=== PATIENT | female | born 1935 | race Caucasian/White ===

== ENCOUNTER → 2016-09-04 | Outpatient (CLI) | payer MEDICARE, OTHER ==
--- NOTE | 2016-09-04 14:37 | US ---
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 EXAM MEASUREMENTS: RIGHT: Peak Systolic Velocity (PSV) cm/sec ----- Right CCA: 75.9 ----- Right ICA: 91.7 ----- Right ECA: 108.1 ICA/CCA ratio: 1.2 RIGHT: End Diastole cm/sec ----- Right CCA: 22.1 ----- Right ICA: 27.3 ----- Right ECA: 0.0 LEFT: Peak Systolic Velocity (PSV) cm/sec ----- Left CCA: 50.4 ----- Left ICA: 79.6 ----- Left ECA: 93.6 ICA/CCA ratio: 1.6 LEFT: End Diastole cm/sec ----- Left CCA: 10.9 ----- Left ICA: 16.9 ----- Left ECA: 0.0 VERTEBRALS (direction of flow): Right Vertebral: Antegrade Left Vertebral: Antegrade No significant velocity elevations, mild plaque. IMPRESSION: 1. Mild plaque bilaterally with no significant hemodynamic stenosis.
--- NOTE | 2016-09-05 10:09 | ECHOF ---
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 This was a technically good study. The left ventricular size is normal. There is borderline concentric left ventricular hypertrophy. Overall left ventricular systolic function is normal with, an EF between 55 - 60 %. The right ventricle is normal in size and function. Normal LA size by volume 22+/-6 ml/m2. The right atrium is normal in size. There is mild aortic valve sclerosis. The mitral valve leaflets are mildly thickened. Mild mitral annular calcification present. Mild mitral regurgitation is present. The tricuspid valve appears structurally normal. The pulmonic valve was not well visualized. The aortic root size is normal. Normal inferior vena cava with normal inspiratory collapse consistent with estimated right atrial pressure of 5 mmHg. The pericardium is normal. CONCLUSIONS -------- 1. Sinus rhythm. 2. Mild mitral annular calcification present. 3. Mild mitral regurgitation is present. 4. The tricuspid valve appears structurally normal. 5. The pulmonic valve was not well visualized. 6. The aortic root size is normal. 7. Normal inferior vena cava with normal inspiratory collapse consistent with estimated right atrial pressure of 5 mmHg. 8. The pericardium is normal. 9. This was a technically good study. 10. The left ventricular size is normal. 11. There is borderline concentric left ventricular hypertrophy. 12. The right ventricle is normal in size and function. 13. Normal LA size by volume 22+/-6 ml/m2. 14. The right atrium is normal in size. 15. There is mild aortic valve sclerosis. 16. The mitral valve leaflets are mildly thickened. DATA WAREHOUSE ARCHITECT: Alexandra Dunn RDCS
== END | disposition home or self-care (01) ==
LOC: RADUSMAIN 13:13
PROVIDERS: ATTEND Internal Medicine Geriatric Medicine
DX: I08.0 Rheumatic disorders of both mitral and aortic valves (principal); I51.7 Cardiomegaly
CPT/HCPCS: 93306; 93880

== ENCOUNTER 2018-03-22 19:41 | Emergency (ER) | payer MEDICARE, OTHER ==
--- NOTE | 2018-03-22 20:14 | ED ---
General Adult HPI - General Chief complaint: Extremity Problem,Nontraumatic Stated complaint: Edema Time Seen by Provider: 03/22/18 20:08 Source: patient Mode of arrival: ambulatory Limitations: no limitations - History of Present Illness Initial comments: Romelia is an 82-year-old female who presents to the emergency department today for evaluation of lower extremity edema. Patient reports that she has been in her usual state of health, not experiencing any chest pain or palpitations or shortness of breath. She reports that she was pretty active yesterday walking around for most the day. She reports that it then today she noticed that both of her lower extremities appeared to be somewhat swollen. She states that the swelling persisted today she discussed it with her family who advised her to come to the ER for further evaluation. Patient denies any pain in lower extremities, any change in color or sensation. She reports normal activity level and no additional complaints. The patient is uncertain if she has any history of congestive heart failure, she has been on diuretics in the past but is not currently taking any. - Related Data Home Medications Medication Instructions Recorded Confirmed ALPRAZolam [Xanax] 0.25 mg PO BID PRN 05/18/14 07/08/14 Calcium Carbonate/Vitamin D3 1 each PO DAILY 05/18/14 07/08/14 [Calcium 600-Vit D3 400 Tablet] Cholestyramine (with Sugar) 1 packet PO BID 05/18/14 07/08/14 [Questran Powder] Docusate Sodium [Dulcolax Stool 100 mg PO DAILY PRN 05/18/14 07/08/14 Softener] Fenofibric Acid (Choline) 45 mg PO DAILY 05/18/14 07/08/14 [Fenofibric Acid] Folic Acid 1 mg PO DAILY 05/18/14 07/08/14 Furosemide [Lasix] 20 mg PO DAILY PRN 05/18/14 07/08/14 Magnesium Oxide [Mag-Ox] 250 mg PO DAILY 05/18/14 07/08/14 Metoprolol Succinate [Toprol XL] 50 mg PO BID 05/18/14 07/08/14 Nitroglycerin Sl Tabs [Nitrostat] 0.4 mg SUBLINGUAL Q5M PRN 05/18/14 07/08/14 Omeprazole [PriLOSEC] 20 mg PO AC-BID 05/18/14 07/08/14 Prochlorperazine [Compazine] 5 mg PO DAILY PRN 05/18/14 07/08/14 metFORMIN HCL [Glucophage] 1,000 mg PO BID 05/18/14 07/08/14 traMADol HCl [Ultram] 50 mg PO Q6H PRN 05/18/14 07/08/14 Previous Rx's Medication Instructions Recorded Aspirin 81 mg PO DAILY #1 chewable 07/10/14 Lisinopril-Hctz 10-12.5 mg 1 each PO BID #60 tab 07/10/14 [Zestoretic 10-12.5] Naproxen [Naprosyn] 250 mg PO Q12HR tab 07/10/14 QUEtiapine [SEROquel] 12.5 mg PO HS #30 tab 07/10/14 amLODIPine [Norvasc] 10 mg PO DAILY #30 tablet 07/10/14 Allergies Allergy/AdvReac Type Severity Reaction Status Date / Time clopidogrel bisulfate AdvReac Confusion Verified 03/22/18 19:53 [From Plavix] prednisone AdvReac Confusion Verified 03/22/18 19:53 zolpidem tartrate AdvReac Confusion Verified 03/22/18 19:53 [From Ambien] Review of Systems ROS Statement: Those systems with pertinent positive or pertinent negative responses have been documented in the HPI. ROS Other: All systems not noted in ROS Statement are negative. Past Medical History Past Medical History: Coronary Artery Disease (CAD), Diabetes Mellitus, Hypertension Additional Past Medical History / Comment(s): 07/08/14 Pt presented to [facility] ER with feeling weak in the legs and that she cannot walk anymore. Pt states this leg weakness has been going on for a couple weeks. She fell at home twice last nite. Other HX: NIDDM, arthritis, bowel cancer, DJD, Recent admission 06/16/14-06/17/14 with bilateral radiculopathy from severe lumbosacral spine degenerative joint disease, anterior listhesis grade 1, L4 on L5. Last Myocardial Infarction Date:: 2004 History of Any Multi-Drug Resistant Organisms: None Reported Past Surgical History: Bowel Resection, Hysterectomy, Joint Replacement, Orthopedic Surgery Additional Past Surgical History / Comment(s): 2-3 yrs ago bowel resection- took out 10 inches of colon. cabg 3 vessel 2004, bladder suspensions 4-5 of them, L total knee replacement. Past Anesthesia/Blood Transfusion Reactions: No Reported Reaction Past Psychological History: No Psychological Hx Reported Smoking Status: Former smoker Past Alcohol Use History: None Reported Past Drug Use History: None Reported - Past Family History Father Family Medical History: Diabetes Mellitus, Vascular Disorder Additional Family Medical History / Comment(s): Father had an amputation of his legs Mother Family Medical History: Myocardial Infarction (AR) General Exam - General Exam Comments Initial Comments: Physical Exam GENERAL: Patient is well-developed and well-nourished. Patient is nontoxic and well- hydrated and is in no distress. HENT: Normocephalic, Atraumatic. EYES: PERRL, EOMI PULMONARY: Unlabored respirations. No audible rales rhonchi or wheezing was noted. CARDIOVASCULAR: There is a regular rate and rhythm without any murmurs gallops or rubs. ABDOMEN: Soft and nontender with normal bowel sounds. SKIN: Skin is clear with no lesions or rashes and otherwise unremarkable. : Deferred NEUROLOGIC: Patient is alert and oriented x3. Moving all extremities spontaneously MUSCULOSKELETAL: Normal extremities with adequate strength and full range of motion. 1+ pitting edema in the bilateral lower extremities PSYCHIATRIC: Normal psychiatric evaluation. Limitations: no limitations Limitations: no limitations Course Vital Signs 03/22/18 03/22/18 03/22/18 19:50 22:12 22:40 Temperature 97.7 F 98.2 F Pulse Rate 65 60 Respiratory 20 18 Rate Blood Pressure 206/73 174/76 O2 Sat by Pulse 99 98 Oximetry EKG Findings - EKG Comments: EKG Findings:: EKG obtained at 8:56 PM, rate is 69, rhythm is sinus bradycardia , there is a leftward axis, normal intervals, WV 160, QRS 88, QTC 443. There are no acute ST elevations or depressions no evidence of acute ischemia or infarction. Medical Decision Making - Medical Decision Making The patient was seen and evaluated history is obtained from the patient as well as and son at bedside Physical exam reveals one plus pretibial pitting edema in the bilateral lower extremities Extremities are warm and well perfused Labs were ordered as well as a venous duplex. Labs resulted with elevated d-dimer, at the time that the labs resulted the venous Doppler is being completed. Venous Doppler no evidence of DVT. Labs otherwise unremarkable no evidence of CHF. At this time I suspect that the patient's bilateral lower extremity edema secondary to being physically active, walking on her feet most of the day and sitting with her legs in a bent position. Supportive care was discussed including keeping the feet elevated, sitting in a recliner and elevating her feet with a pillow during the night. All questions pertaining care were answered the best of my ability return parameters were discussed, patient was advised to follow-up with her PCP on Saturday which she will do. Patient was discharged home in stable condition. - Lab Data Result diagrams: 03/22/18 21:23 03/22/18 21:23 Lab Results 03/22/18 03/22/18 03/22/18 Range/Units 21:23 21: 21:23 WBC 3.3 L (3.8-10.6) k/uL RBC 4.16 (3.80-5.40) m/uL Hgb 11.6 (11.4-16.0) gm/dL Hct 35.8 (34.0-46.0) % MCV 86.0 (80.0-100.0) fL MCH 27.8 (25.0-35.0) pg MCHC 32.4 (31.0-37.0) g/dL RDW 14.6 (11.5-15.5) % Plt Count 137 L (150-450) k/uL Neutrophils % 51 % Lymphocytes % 36 % Monocytes % 5 % Eosinophils % 4 % Basophils % 1 % Neutrophils # 1.7 (1.3-7.7) k/uL Lymphocytes # 1.2 (1.0-4.8) k/uL Monocytes # 0.2 (0-1.0) k/uL Eosinophils # 0.1 (0-0.7) k/uL Basophils # 0.0 (0-0.2) k/uL PT (9.0-12.0) sec INR (<1.2) APTT (22.0-30.0) sec D-Dimer (<0.60) mg/L FEU Sodium 142 (137-145) mmol/L Potassium 4.3 (3.5-5.1) mmol/L Chloride 109 H (98-107) mmol/L Carbon Dioxide 23 (22-30) mmol/L Anion Gap 10 mmol/L BUN 20 H (7-17) mg/dL Creatinine 0.94 (0.52-1.04) mg/dL Est GFR (CKD-EPI)AfAm 66 (>60 ml/min/1.73 sqM) Est GFR (CKD-EPI)NonAf 57 (>60 ml/min/1.73 sqM) Glucose 197 H (74-99) mg/dL Calcium 9.6 (8.4-10.2) mg/dL Magnesium 1.9 (1.6-2.3) mg/dL Total Bilirubin 0.4 (0.2-1.3) mg/dL AST 34 (14-36) U/L ALT 32 (9-52) U/L Alkaline Phosphatase 88 (38-126) U/L Total Creatine Kinase 145 H (30-135) U/L CK-MB (CK-2) 3.2 H (0.0-2.4) ng/mL CK-MB (CK-2) Rel Index 2.2 Troponin I <0.012 (0.000-0.034) ng/mL NT-Pro-B Natriuret Pep pg/mL Total Protein 7.2 (6.3-8.2) g/dL Albumin 4.1 (3.5-5.0) g/dL 03/22/18 03/22/18 Range/Units 21:23 21:23 WBC (3.8-10.6) k/uL RBC (3.80-5.40) m/uL Hgb (11.4-16.0) gm/dL Hct (34.0-46.0) % MCV (80.0-100.0) fL MCH (25.0-35.0) pg MCHC (31.0-37.0) g/dL RDW (11.5-15.5) % Plt Count (150-450) k/uL Neutrophils % % Lymphocytes % % Monocytes % % Eosinophils % % Basophils % % Neutrophils # (1.3-7.7) k/uL Lymphocytes # (1.0-4.8) k/uL Monocytes # (0-1.0) k/uL Eosinophils # (0-0.7) k/uL Basophils # (0-0.2) k/uL PT 9.8 (9.0-12.0) sec INR 1.0 (<1.2) APTT 23.2 (22.0-30.0) sec D-Dimer 2.09 H (<0.60) mg/L FEU Sodium (137-145) mmol/L Potassium (3.5-5.1) mmol/L Chloride (98-107) mmol/L Carbon Dioxide (22-30) mmol/L Anion Gap mmol/L BUN (7-17) mg/dL Creatinine (0.52-1.04) mg/dL Est GFR (CKD-EPI)AfAm (>60 ml/min/1.73 sqM) Est GFR (CKD-EPI)NonAf (>60 ml/min/1.73 sqM) Glucose (74-99) mg/dL Calcium (8.4-10.2) mg/dL Magnesium (1.6-2.3) mg/dL Total Bilirubin (0.2-1.3) mg/dL AST (14-36) U/L ALT (9-52) U/L Alkaline Phosphatase (38-126) U/L Total Creatine Kinase (30-135) U/L CK-MB (CK-2) (0.0-2.4) ng/mL CK-MB (CK-2) Rel Index Troponin I (0.000-0.034) ng/mL NT-Pro-B Natriuret Pep 310 pg/mL Total Protein (6.3-8.2) g/dL Albumin (3.5-5.0) g/dL Disposition Clinical Impression: Bilateral lower extremity edema Disposition: HOME SELF-CARE Condition: Good Instructions: Leg Edema (ED) Is patient prescribed a controlled substance at d/c from ED?: No Referrals: Kenya Block MD [Primary Care Provider] - 1-2 days
[2018-03-22 21:41] LABS: Basophils % (A) 1 %; Eosinophils # (A) 0.1 k/uL (0-0.7); Eosinophils % (A) 4 %; HCT 35.8 % (34.0-46.0); HGB 11.6 gm/dL (11.4-16.0); Lymphocytes # (A) 1.2 k/uL (1.0-4.8); Lymphocytes % (A) 36 %; MCH 27.8 pg (25.0-35.0); MCHC 32.4 g/dL (31.0-37.0); Mean Platelet Volume 7.8; Monocytes # (A) 0.2 k/uL (0-1.0); Monocytes % (A) 5 %; Neutrophils # (A) 1.7 k/uL (1.3-7.7); Neutrophils % (A) 51 %; Platelet Count 137 k/uL (150-450); RBC 4.16 m/uL (3.80-5.40); RDW 14.6 % (11.5-15.5); WBC 3.3 k/uL (3.8-10.6)
[2018-03-22 21:56] LABS: Partial Thromboplastin Time 23.2 sec (22.0-30.0); Prothrombin Time 9.8 sec (9.0-12.0)
[2018-03-22 21:58] LABS: Albumin 4.1 g/dL (3.5-5.0); Calcium 9.6 mg/dL (8.4-10.2); Creatine Kinase 145 U/L (30-135); D-Dimer 2.09 mg/L FEU (<0.60); Magnesium 1.9 mg/dL (1.6-2.3); Potassium 4.3 mmol/L (3.5-5.1); Total Bilirubin 0.4 mg/dL (0.2-1.3); Total Protein 7.2 g/dL (6.3-8.2)
--- NOTE | 2018-03-22 22:00 | US ---
EXAMINATION TYPE: US venous doppler duplex LE DATE OF EXAM: 03/22/2018 9:52 PM COMPARISON: NONE CLINICAL HISTORY: edema, left > right. mild pitting edema near socks, no h/o dvt SIDE PERFORMED: Bilateral TECHNIQUE: The lower extremity deep venous system is examined utilizing real time linear array sonog clarke with graded compression, doppler sonography and color-flow sonography. VESSELS IMAGED: External Iliac Vein (EIV) Common Femoral Vein Deep Femoral Vein Greater Saphenous Vein * Femoral Vein Popliteal Vein Small Saphenous Vein * Proximal Calf Veins (* superficial vessels) Right Leg: Appears negative for DVT Left Leg: Appears negative for DVT IMPRESSION: No sonographic evidence of lower extremity DVT. Grayscale, color doppler, spectral doppl er imaging performed of the deep veins of the lower extremities. There is normal flow, compressibili ty, vascular waveforms.
[2018-03-22 22:10] LABS: Creatine Kinase MB 3.2 ng/mL (0.0-2.4); Troponin I <0.012 ng/mL (0.000-0.034)
--- NOTE | 2018-03-22 22:13 | XR ---
EXAMINATION TYPE: XR chest 2V DATE OF EXAM: 03/22/2018 COMPARISON: 07/08/2014 HISTORY: Chest pain TECHNIQUE: Frontal and lateral views of the chest are obtained. FINDINGS: There is no heart failure nor confluent pneumonic infiltrate. Costophrenic angles are raúl r. There are sternal wires. Bony thorax is intact. IMPRESSION: No active cardiopulmonary disease. No change.
[2018-03-22 22:22] VITALS: BP 174/76; PULSE 60; RESP 18
[2018-03-22 22:48] VITALS: TEMP 98.2
== END 2018-03-22 22:40 | disposition home or self-care (01) ==
LOC: EC 19:41
DX: R60.0 Localized edema (principal); I25.10 Atherosclerotic heart disease of native coronary artery without angina pectoris; E11.9 Type 2 diabetes mellitus without complications; I10 Essential (primary) hypertension; M19.90 Unspecified osteoarthritis, unspecified site; Z85.038 Personal history of other malignant neoplasm of large intestine; Z96.652 Presence of left artificial knee joint; Z87.891 Personal history of nicotine dependence; Z79.84 Long term (current) use of oral hypoglycemic drugs; Z79.899 Other long term (current) drug therapy; Z88.8 Allergy status to other drugs, medicaments and biological substances
CPT/HCPCS: 36415; 71046; 80053; 82550; 82553; 83735; 83880; 84484; 85025; 85379; 85610; 85730; 93005; 93970; 99284

== ENCOUNTER → 2018-12-05 | Outpatient (CLI) | payer MEDICARE, OTHER ==
--- NOTE | 2018-12-05 14:37 | P.GSHP ---
History of Present Illness H&P Date: 12/05/18 Chief Complaint: abnormal mammogram and ultrasound of the right breast Romelia is an 82-year-old white female who had a routine screening mammogram performed on [id number]. The findings revealed a 6 mm group of calcifications in the lower outer quadrant of the right breast near the 6 o'clock position. Additionally in inferior right middle depth area was noted of asymmetry. On the left there was a 1.2 cm round mass and adjacent smaller 5 mm mass. Bilateral ultrasounds were then performed. The patient had an ultrasound was noted to have a lesion at 6:00 in the right breast which was 0.5 cm and felt to be somewhat suspicious and warrant ultrasound-guided biopsy additionally the microcalcifications in the right breast was felt to warm biopsy. In the left breast there was a simple appearing cyst and no biopsy was recommended for the left breast. Since the radiographic findings the patient states that she thinks she can feel some nodularity in the right breast. The patient has had fibrocystic breast disease identified by biopsy in the past. She is uncertain as to which breast was biopsied but this was by an open approach approximately 50 years ago. She has no nipple discharge or skin changes. Intermittently with palpation she has some discomfort at the 12 o'clock position of both breasts. She does drink caffeinated beverages throughout the day. She used to smoke but has not smoked for approximately 25 years. She is not exposed to secondhand smoke. She does not eat chocolate on a regular basis. Family History: 1. daughter: metastatic invasive lobular from her left breast, dx. at 63 2. 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 Bland 2. 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 tripple bypass 5. left knee replacement 6. torn meniscus right knee 7. neck surgery (cadaver bone placed) Medical History: 1. diabetes 2. HTN 3. high cholesterol 4. GERD 5. CAD 6. history of carcinoid tumor 7. arthritis Social History: smoke: stopped 20 years ago alcohol: none drugs: none - Constitutional Constitutional: Denies chills, Denies fever - EENT Eyes: denies blurred vision, denies pain Ears: deny: decreased hearing, tinnitus Ears, nose, mouth and throat: Denies headache, Denies sore throat - Breasts Breasts: bilateral: as per HPI - Cardiovascular Comment: CAD Cardiovascular: Reports high blood pressure - Respiratory Respiratory: Denies cough, Denies 7 - Gastrointestinal Comment: carcinoid tumor surgery in past, history of diverticular disease, diverticular disease in remaining colon - Genitourinary (Female) Genitourinary: Denies dysuria, Denies hematuria - Menstruation Menstruation: Reports postmenopausal - Musculoskeletal Comment: arthritis - Integumentary Integumentary: Denies pruritus, Denies rash - Neurological Neurological: Denies numbness, Denies weakness - Psychiatric Psychiatric: Denies anxiety, Denies depression - Endocrine Comment: diabetes 20 years - Hematologic/Lymphatic Comment: none - Allergic/Immunologic Allergic/Immunologic: Reports as per HPI Past Medical History Past Medical History: Coronary Artery Disease (CAD), Diabetes Mellitus, Hypertension Additional Past Medical History / Comment(s): 07/08/14 Pt presented to [facility] ER with feeling weak in the legs and that she cannot walk anymore. Pt states this leg weakness has been going on for a couple weeks. She fell at home twice last nite. Other HX: NIDDM, arthritis, bowel cancer, DJD, Recent admission 06/16/14-06/17/14 with bilateral radiculopathy from severe lumbosacral spine degenerative joint disease, anterior listhesis grade 1, L4 on L5. Last Myocardial Infarction Date:: 2004 History of Any Multi-Drug Resistant Organisms: None Reported Past Surgical History: Bowel Resection, Hysterectomy, Joint Replacement, Orthopedic Surgery Additional Past Surgical History / Comment(s): 2-3 yrs ago bowel resection- took out 10 inches of colon. cabg 3 vessel 2004, bladder suspensions 4-5 of them, L total knee replacement. Past Anesthesia/Blood Transfusion Reactions: No Reported Reaction Past Psychological History: No Psychological Hx Reported Additional Psychological History / Comment(s): Pt and her live in son's home. Son works outside the home. Pt has a walker at home but has not used it yet. Pt is fairly independent until her legs started feeling weak approximately 2 weeks ago. 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 Smoking Status: Former smoker Past Alcohol Use History: None Reported Past Drug Use History: None Reported - Past Family History Father Family Medical History: Diabetes Mellitus, Vascular Disorder Additional Family Medical History / Comment(s): Father had an amputation of his legs Mother Family Medical History: Myocardial Infarction (NH) Medications and Allergies Home Medications Medication Instructions Recorded Confirmed Type Folic Acid 1 mg PO DAILY 05/18/14 12/05/18 History Magnesium Oxide [Mag-Ox] 250 mg PO DAILY 05/18/14 12/05/18 History Metoprolol Succinate [Toprol XL] 50 mg PO BID 05/18/14 12/05/18 History Omeprazole [PriLOSEC] 20 mg PO AC-BID 05/18/14 12/05/18 History amLODIPine [Norvasc] 10 mg PO DAILY #30 tablet 07/10/14 12/05/18 Rx Empagliflozin [Jardiance] 25 mg PO DAILY 12/05/18 12/05/18 History INSULIN LISPRO (HumaLOG) [HumaLOG] 32 units SQ HS 12/05/18 12/05/18 History Insulin Aspart [Novolog] 7 unit SQ AC-TID 12/05/18 12/05/18 History Ramipril 10 mg PO BID 12/05/18 12/05/18 History Allergies Allergy/AdvReac Type Severity Reaction Status Date / Time clopidogrel bisulfate AdvReac Confusion Verified 12/05/18 13:36 [From Plavix] prednisone AdvReac Confusion Verified 12/05/18 13:36 zolpidem tartrate AdvReac Confusion Verified 12/05/18 13:36 [From Ambien] Surgical - Exam Vital Signs Temp Pulse Resp BP Pulse Ox 97.8 F 48 L 18 178/65 98 12/05/18 13:33 12/05/18 13:33 12/05/18 13:33 12/05/18 13:33 12/05/18 13:33 BMI 24.8 - General well developed, well nourished, no distress - Eyes normal ocular movement - ENT no hearing loss, no congestion - Neck no masses, trachea midline - Respiratory normal respiratory effort, clear to auscultation - Cardiovascular Rhythm: regular Heart Sounds: normal: S1, S2 - Abdomen Abdomen: soft, non tender, no guarding, no rigid, no rebound - Integumentary normal turgor - Neurologic no disoriented, no combative - Musculoskeletal normal gait, normal posture - Psychiatric oriented to time, oriented to place, memory intact Breast examination: Right breast: Multi-positional exam dense breast tissue, fibrocystic changes, no dominant mass or nodule of concern Right axilla: No adenopathy of concern Left breast: Fibrocystic breast changes, dense breast tissue, no dominant mass or nodule of concern Left axilla: No adenopathy of concern Assessment and Plan Assessment: Impression: 1. diabetes 2. HTN 3. high cholesterol 4. GERD 5. CAD 6. history of carcinoid tumor 7. arthritis 8. Abnormal mammogram and ultrasound of the right breast 9. Fibrocystic breast changes 10. Family history of breast cancer 11. Prior history of coronary artery bypass grafting Patient is recommended to undergo a right breast stereotactic core biopsy, possible ultrasound-guided core biopsy. We are obtaining the radiographs to derive final recommendation. Risk and benefits of both procedures will be discussed with the patient and her family. The patient's mammogram and ultrasound were reviewed with the radiologist Dr. Mcduffie. After review it is felt that the lesion on the left side represents a simple cyst and does not necessitate any biopsy. The lesion on the right seen radiographically does show some calcifications for which stereotactic core biopsy is recommended. The lesion seen by ultrasound is felt to most likely represent a benign lymph node and in less the stereotactic lesion is atypical we will follow bed area conservatively. Therefore the recommendation is stereotactic core biopsy 6:00 lesion on the right breast. Follow-up right breast mammogram and ultrasound in 6 months depending on pathology results Follow-up left breast mammogram and ultrasound in 6 months Plan: 1. Medical management of medical conditions 2. Stereotactic core biopsy right breast 6:00 lesion 3. Ultrasound evaluation of both breasts in 6 months 4. Bilateral mammogram in 6 months depending on results of circumflex a biopsy CC: Dr. Block
== END ==
DX: Z53.9 Procedure and treatment not carried out, unspecified reason (principal)

== ENCOUNTER → 2018-12-16 | Day surgery (SDC) | payer MEDICARE, OTHER ==
[2018-12-16 07:33] VITALS: RESP 16; BMI 25.4
[2018-12-16 09:46] VITALS: BP 154/61; PULSE 53; TEMP 97.7
--- NOTE | 2018-12-16 10:13 | P.PCN ---
Date of Procedure: 12/16/18 Preoperative Diagnosis: Right breast abnormal calcifications Postoperative Diagnosis: Same Procedure(s) Performed: right breast stereotactic core biopsy Anesthesia: local Surgeon: Neha Talavera Estimated Blood Loss (ml): 0 Pathology: other (Breast tissue) Condition: stable Disposition: same day Indications for Procedure: Microcalcifications right breast Operative Findings: Microcalcifications right breast Description of Procedure: The patient is an 83-year-old white female with a mammogram revealing microcalcifications of concern in the right breast. Risk and benefits of stereotactic core biopsy was discussed with the patient and she wished to proceed. The patient was taken to the stereotactic core biopsy room and positioned on the table. A bandage maker film was obtained. The area of concern was identified. The breast was prepped using Betadine. 20 mL of lidocaine 1% were used to anesthetize the area of concern. Needle was driven to the correct coordinates, prefire films were obtained, the needle was fired and posterior films were obtained. There appeared to be an error in the X axis air and the needle was moved to the right on the X axis. Repeat radiograph revealed that the needle was in the correct location. An additional 10 mL of lidocaine was injected. The needle was in 9-gauge vacuum-assisted core biopsy needle. An attempt to obtain core biopsies was unsuccessful as there did not appear to be any suction on the 9-gauge vacuum-assisted core biopsy needle. Therefore the needle was withdrawn and the area was retargeted. The needle was again inserted through the same incision site. Prefire films were obtained, the needle appeared to be in the correct location and post-fire films were obtained. The needle appeared to be in the correct location. Core biopsies were obtained. Radiograph of the specimen revealed microcalcifications in the specimen. A secure marked top at marker was placed. The patient tolerated the procedure in stable condition. The specimen was sent to pathology. The patient will follow-up with Dr. Elliott.
--- NOTE | 2018-12-16 12:12 | MM ---
EXAMINATION TYPE: MG stereo VAD BX RT DATE OF EXAM: 12/16/2018 COMPARISON: Outside diagnostic bilateral mammogram CLINICAL HISTORY: Indeterminate right breast calcifications for which stereotactic guided biopsy was recommended TECHNIQUE: Stereotactic guided core biopsy of right breast. FINDINGS: The procedure of stereotactic guided core biopsy was explained to the patient. Benefits, alternatives, and risks were discussed. An informed consent was then obtained. Preprocedural timeout was performed. The stasis pathway for biopsy was chosen. The pathway was CC from below approach. I performed the localization, then surgeon, Dr. Earl Barahona performed the remainder of the procedure. A vacuum assisted biopsy gun was used to obtain multiple core samples from a 6 mm group of calcifications in the lower outer quadrant of the right breast at middle depth. The patient tolerated the procedure well. The patient did develop a postprocedural biopsy with hemostasis after compression. This hematoma was evaluated with ultrasound. The patient was kept in the radiology department for short stay after the procedure and then discharged home in stable condition. Targeted calcifications are identified in specimen mammogram. Post biopsy mammogram shows the clip to appear in satisfactory position relative to the targeted area of concern on the preprocedure images. IMPRESSION: SUCCESSFUL STEREOTACTIC GUIDED CORE BIOPSY OF AREA OF CONCERN IN THE RIGHT BREAST, FULL PATHOLOGY RESULTS TO FOLLOW. RECOMMENDATION FOR THE RIGHT BREAST MASS AT 6:00 ON THE RIGHT SEEN ON THE PRIOR OUTSIDE ULTRASOUND WILL BE GIVEN PENDING RESULTS OF STEREOTACTIC BIOPSY. Pathology Results: Benign RIGHT BREAST LESION, STEREOTACTIC NEEDLE CORE BIOPSIES: Fibroadenomatoid change in predominantly fatty breast parenchyma. Abundant coarse intraductal mineralizations are identified. Recommendation Follow up mammogram of the right breast in 6 months. ELID
--- NOTE | 2018-12-16 13:15 | USB ---
Reason for exam: clinical finding. US Breast Limited RT Right limited breast ultrasound including focal area of concern, retroareolar and axilla demonstrates a 3.4 x 1.3 x 3.3cm hypoechoic hematoma post biopsy at 6 o'clock. These results were verbally communicated with the patient and result sheet given to the patient on 12/16/18. ASSESSMENT: Benign, BI-RAD 2 RECOMMENDATION: Routine screening mammogram of both breasts in 1 year. Manage patient on a clinical basis.
== END ==
LOC: RADMAMWWP 06:59
PROVIDERS: ATTEND Surgery
DX: D24.1 Benign neoplasm of right breast (principal); R92.1 Mammographic calcification found on diagnostic imaging of breast; Z88.8 Allergy status to other drugs, medicaments and biological substances
CPT/HCPCS: 88305; 19081; 76642; A4648; J2001

== ENCOUNTER → 2018-12-29 | Outpatient (CLI) | payer MEDICARE, OTHER ==
[2018-12-29 16:30] VITALS: BP 161/72; PULSE 54; RESP 16; TEMP 97.8; BMI 24.4
--- NOTE | 2018-12-29 17:09 | P.PN ---
Subjective Progress Note Date: 12/29/18 Romelia is an 82-year-old white female who had a routine screening mammogram performed on [id number]. The findings revealed a 6 mm group of calcifications in the lower outer quadrant of the right breast near the 6 o'clock position. Additionally in inferior right middle depth area was noted of asymmetry. On the left there was a 1.2 cm round mass and adjacent smaller 5 mm mass. Bilateral ultrasounds were then performed. The patient had an ultrasound was noted to have a lesion at 6:00 in the right breast which was 0.5 cm and felt to be somewhat suspicious and warrant ultrasound-guided biopsy additionally the microcalcifications in the right breast was felt to warm biopsy. In the left breast there was a simple appearing cyst and no biopsy was recommended for the left breast. Since the radiographic findings the patient states that she thinks she can feel some nodularity in the right breast. The patient has had fibrocystic breast disease identified by biopsy in the past. She is uncertain as to which breast was biopsied but this was by an open approach approximately 50 years ago. She has no nipple discharge or skin changes. Intermittently with palpation she has some discomfort at the 12 o'clock position of both breasts. She does drink caffeinated beverages throughout the day. She used to smoke but has not smoked for approximately 25 years. She is not exposed to secondhand smoke. She does not eat chocolate on a regular basis. She underwent stereotactic core biopsy and [id number]. The pathology revealed calcifications and benign fibroadenomatoid change. The patient post procedure complained of some discomfort in the lateral aspect of the right breast. She also has some echymosi. She does not have any fever or chills. The patient's ultrasound was reviewed with radiology and the plan was for repeat study in 6 months. with out a biopsy oat this time. Family History: 1. daughter: metastatic invasive lobular from her left breast, dx. at 63 2. 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 Bland 2. 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 tripple bypass 5. left knee replacement 6. torn meniscus right knee 7. neck surgery (cadaver bone placed) Medical History: 1. diabetes 2. HTN 3. high cholesterol 4. GERD 5. CAD 6. history of carcinoid tumor 7. arthritis Social History: smoke: stopped 20 years ago alcohol: none drugs: none - Constitutional Constitutional: Denies chills, Denies fever - EENT Eyes: denies blurred vision, denies pain Ears: deny: decreased hearing, tinnitus Ears, nose, mouth and throat: Denies headache, Denies sore throat - Breasts Breasts: bilateral: as per HPI - Cardiovascular Comment: CAD Cardiovascular: Reports high blood pressure - Respiratory Respiratory: Denies cough, Denies 7 - Gastrointestinal Comment: carcinoid tumor surgery in past, history of diverticular disease, diverticular disease in remaining colon - Genitourinary (Female) Genitourinary: Denies dysuria, Denies hematuria - Menstruation Menstruation: Reports postmenopausal - Musculoskeletal Comment: arthritis - Integumentary Integumentary: Denies pruritus, Denies rash - Neurological Neurological: Denies numbness, Denies weakness - Psychiatric Psychiatric: Denies anxiety, Denies depression - Endocrine Comment: diabetes 20 years - Hematologic/Lymphatic Comment: none - Allergic/Immunologic Allergic/Immunologic: Reports as per HPI Past Medical History Past Medical History: Coronary Artery Disease (CAD), Diabetes Mellitus, Hypertension Additional Past Medical History / Comment(s): 07/08/14 Pt presented to [facility] ER with feeling weak in the legs and that she cannot walk anymore. Pt states this leg weakness has been going on for a couple weeks. She fell at home twice last nite. Other HX: NIDDM, arthritis, bowel cancer, DJD, Recent admission 06/16/14- 06/17/14 with bilateral radiculopathy from severe lumbosacral spine degenerative joint disease, anterior listhesis grade 1, L4 on L5. Last Myocardial Infarction Date:: 2004 History of Any Multi-Drug Resistant Organisms: None Reported Past Surgical History: Bowel Resection, Hysterectomy, Joint Replacement, Orthopedic Surgery Additional Past Surgical History / Comment(s): 2-3 yrs ago bowel resection- took out 10 inches of colon. cabg 3 vessel 2004, bladder suspensions 4-5 of them, L total knee replacement. Past Anesthesia/Blood Transfusion Reactions: No Reported Reaction Past Psychological History: No Psychological Hx Reported Additional Psychological History / Comment(s): Pt and her live in son's home. Son works outside the home. Pt has a walker at home but has not used it yet. Pt is fairly independent until her legs started feeling weak approximately 2 weeks ago. 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 Smoking Status: Former smoker Past Alcohol Use History: None Reported Past Drug Use History: None Reported Objective - Vital Signs Vital signs: Vital Signs Temp 97.8 F 12/29/18 16:15 Pulse 54 L 12/29/18 16:15 Resp 16 12/29/18 16:15 BP 161/72 12/29/18 16:15 Pulse Ox 95 12/29/18 16:15 Intake & Output 12/28/18 12/29/18 12/29/18 18:59 06:59 18:59 Weight 62.596 kg - Exam BMI 24.4 - Constitutional General appearance: Present: average body habitus - EENT Eyes: Present: EOMI ENT: Present: hearing grossly normal - Neck Neck: Present: normal ROM - Respiratory Respiratory: bilateral: CTA - Cardiovascular Rhythm: regular Heart sounds: normal: S1, S2 - Integumentary Integumentary: Present: normal turgor - Musculoskeletal Musculoskeletal: Present: gait normal - Psychiatric Psychiatric: Present: A&O x's 3, appropriate affect, intact judgment & insight - Additional findings Additional findings: right breast: echymosis at the inferior aspect of the right breast, hematoma present Lateral aspect of the right breast near the axillary area in the area of erythema with punctate rash-like changes Assessment and Plan Assessment: Impression: 1. diabetes 2. HTN 3. high cholesterol 4. GERD 5. CAD 6. history of carcinoid tumor 7. arthritis 8. States a biopsy fibrocystic changes 9. Ultrasound results reviewed with radiologist will repeat ultrasound in 6 months time no biopsy at this time Plan: 1. Repeat right breast mammogram and ultrasound in 6 months 2. Medical management of medical conditions 3. Hematoma resolving 4. Rash lateral aspect of the breast will continue to follow this if it increases or does not resolve will consider dermatology consult 5. history of varicella zoster/may be source of lateral rash Plan: 1. Continue present care of the right breast area of hematoma and ecchymosis 2. Close follow-up of the possible area of very solid zoster the lateral aspect of the right breast 3. Repeat right breast mammogram and ultrasound in 6 months 4. Medical management of medical conditions CC: Dr. Block
== END | disposition home or self-care (01) ==
LOC: WWCWWP 15:46
PROVIDERS: ATTEND Surgery
DX: Z53.9 Procedure and treatment not carried out, unspecified reason (principal)

== ENCOUNTER → 2019-03-30 | Outpatient (CLI) | payer MEDICARE, OTHER ==
--- NOTE | 2019-03-30 10:51 | USB ---
Reason for exam: clinical finding. History: Benign MG stereo VAD BX RT of the right breast, December 16, 2018. Physical Findings: Nurse Summary: 3cm x 2cm firm, tender lump lateral to stereo, punctate scar, questionable hematoma (nurse mj). US Breast RT Right complete breast ultrasound includes all four quadrants, the retroareolar region and axilla. Finding demonstrates a 0.3 x 0.3 x 0.3cm benign calcification at 3 o'clock and a 2.5 x 1.7 x 2.7cm complex cystic mass at 6-7 o'clock most compatible with residual hematoma. Prominent peripheral vascularity. 6 month follow up to ensure complete involution. These results were verbally communicated with the patient and result sheet given to the patient on 03/30/19. ASSESSMENT: Probably benign, BI-RAD 3 RECOMMENDATION: Follow-up diagnostic mammogram of both breasts in 7 months. Ultrasound of the right breast in 7 months. (6 o'clock biopsy site) Back on schedule for October 2019.
== END | disposition home or self-care (01) ==
LOC: RADUSWWP 07:22
PROVIDERS: ATTEND Internal Medicine
DX: N60.21 Fibroadenosis of right breast (principal)

== ENCOUNTER → 2019-10-27 | Outpatient (CLI) | payer SELFPAY ==
[2019-10-27 11:50] LABS: Anisocytosis Slight; Basophils % (A) 1 %; Eosinophils # (A) 0.3 k/uL (0-0.7); Eosinophils % (A) 7 %; HCT 38.6 % (34.0-46.0); HGB 11.8 gm/dL (11.4-16.0); Hypochromasia Marked; Lymphocytes # (A) 1.2 k/uL (1.0-4.8); Lymphocytes % (A) 31 %; MCH 24.3 pg (25.0-35.0); MCHC 30.5 g/dL (31.0-37.0); MCV 79.5 fL (80.0-100.0); Mean Platelet Volume 7.5; Monocytes # (A) 0.2 k/uL (0-1.0); Monocytes % (A) 5 %; Neutrophils # (A) 2.1 k/uL (1.3-7.7); Neutrophils % (A) 53 %; Platelet Count 174 k/uL (150-450); RBC 4.85 m/uL (3.80-5.40); RDW 16.1 % (11.5-15.5); WBC 3.9 k/uL (3.8-10.6)
[2019-10-27 16:37] LABS: African American GFR (CKD) 60.8 (60.0-200.0); Albumin 4.8 g/dL (3.80-4.90); Albumin/Globulin Ratio 1.66 (1.60-3.17); Anion Gap 6.4 mmol/L (4.00-12.00); Calcium 9.7 mg/dL (8.7-10.3); Carbon Dioxide 26.6 mmol/L (21.6-31.8); Chol/HDL Ratio 5.11; Globulin 2.9 g/dL (1.6-3.3); Non-African American GFR(CKD) 52.4 (60.0-200.0); Potassium 5.2 mmol/L (3.5-5.5); Total Bilirubin 0.3 mg/dL (0.2-1.2); Total Protein 7.7 g/dL (6.2-8.2)
[2019-10-27 19:07] LABS: Hemoglobin A1C 7.3 % (4.0-6.0)
== END | disposition home or self-care (01) ==
LOC: LABWHC1 09:44
PROVIDERS: ATTEND Internal Medicine
DX: E78.2 Mixed hyperlipidemia (principal); I10 Essential (primary) hypertension; E11.9 Type 2 diabetes mellitus without complications
CPT/HCPCS: 36415; 80053; 80061; 83036; 84443; 85025

== ENCOUNTER → 2020-03-15 | Outpatient (CLI) | payer MEDICARE ==
--- NOTE | 2020-03-15 17:42 | CT ---
EXAMINATION TYPE: CT abdomen pelvis w con DATE OF EXAM: 03/15/2020 COMPARISON: CT abdomen pelvis 01/25/2013 HISTORY: carcinoid tumor. History of cholecystectomy, small bowel resection, appendectomy, hysterecto my. CT DLP: 382.3 mGycm Automated exposure control for dose reduction was used. TECHNIQUE: Helical acquisition of images was performed from the lung bases through the pelvis. CONTRAST: Performed with Oral Contrast and with IV Contrast, patient injected with 80 mL of Isovue 300. FINDINGS: LUNG BASES: Calcified granuloma of the right lower lobe redemonstrated. No pericardial or pleural eff usion. LIVER: Calcified granuloma of the liver. BILIARY SYSTEM: Status post cholecystectomy. No intrahepatic or extrahepatic biliary ductal dilatatio n. PANCREAS: Atrophic. SPLEEN: Calcified granulomas. Splenule. ADRENALS: Normal. KIDNEYS: Too small to characterize hypodense lesion of the right kidney unchanged versus 2013 compari son. Extra renal pelvis with fullness of the renal collecting systems, right greater than left. BOWEL: No obstruction or thickening. Colonic diverticulosis. No acute diverticulitis. Appendix surgi luci absent. PERITONEUM: Within the mid lower abdomen adjacent to a small bowel loop there is a lobular soft tiss ue density within the mesentery measuring 2.3 x 2.7 x 1.5 cm (3:48, 8:36). Several mesenteric promine nt lymph nodes are redemonstrated, most of which appears similar. The largest lymph nodes node just s uperior and to the right of the soft tissue mass measures 5 mm, and previously measured [address] No pneumoperitoneum. No free fluid. Fat-containing ventral abdominal hernias. LYMPH NODES: No lymphadenopathy, however there are several redemonstrated prominent mesenteric lymph nodes of the mid lower abdomen. PELVIS: Normal urinary bladder. Status post hysterectomy. VASCULATURE: Marked calcified atherosclerotic disease. There is infrarenal abdominal aortic ectasia measuring up to 1.6 x 1.9 cm AP and transverse, as well as abdominal aortic dissection (8:28) startin g at the level of the right renal artery which does not extending beyond the bifurcation. MUSCULOSKELETAL: Degenerative changes of the spine. Grade 1 anterolisthesis of L4 and L5. IMPRESSION: Lobular soft tissue density within the mid lower abdomen not definitively contiguous with the adjacen t small bowel loop, and may represent mesenteric mass measuring 2.3 x 2.7 cm. Differential includes c arcinoid tumor. Several prominent adjacent mesenteric lymph nodes appear similar versus 2013 comparis on.
== END | disposition home or self-care (01) ==
LOC: RADCTMAIN 10:55
PROVIDERS: ATTEND Internal Medicine
DX: D3A.00 Benign carcinoid tumor of unspecified site (principal); M79.89 Other specified soft tissue disorders; Z88.8 Allergy status to other drugs, medicaments and biological substances
CPT/HCPCS: 82565; 84520; 74177; 36415; Q9967

== ENCOUNTER → 2020-03-22 | Outpatient (CLI) | payer MEDICARE ==
--- NOTE | 2020-03-22 18:00 | US ---
EXAMINATION TYPE: US venous doppler duplex LE DATE OF EXAM: 03/22/2020 5:42 PM COMPARISON: US CLINICAL HISTORY: M79.605 Left Leg Pain. Left leg pain x 1 week. No hx of DVT. Patient does not take blood thinners. Hx left knee replacement. SIDE PERFORMED: Left TECHNIQUE: The lower extremity deep venous system is examined utilizing real time linear array sonog clarke with graded compression, doppler sonography and color-flow sonography. VESSELS IMAGED: Common Femoral Vein Deep Femoral Vein Greater Saphenous Vein * Femoral Vein Popliteal Vein Small Saphenous Vein * Proximal Calf Veins (* superficial vessels) Left Leg: No evidence of DVT in veins imaged at this time from prox calf veins to CFV. GSV appears small in groin area but does appear to compress. IMPRESSION: No evidence of deep vein thrombosis in the left leg.
== END | disposition home or self-care (01) ==
LOC: RADUSWWP 17:07
PROVIDERS: ATTEND Internal Medicine
DX: M79.605 Pain in left leg (principal)

== ENCOUNTER 2020-04-02 07:59 | Inpatient (IN) | payer MEDICARE ==
[2020-04-02] MEDS ORDERED: SODIUM CHLORIDE 0.9% 1,000 ML IV STA (08:18)
[2020-04-02] MEDS ORDERED: FAMOTIDINE 20 MG/2 ML VIAL IV STA (08:18)
[2020-04-02] MEDS ORDERED: ONDANSETRON 4 MG/2 ML VIAL IVP STA (08:18)
--- NOTE | 2020-04-02 08:20 | ED ---
General Adult HPI - General Chief complaint: Nausea/Vomiting/Diarrhea Stated complaint: Vomiting Time Seen by Provider: 04/02/20 08:06 Source: patient, RN notes reviewed, old records reviewed Mode of arrival: wheelchair Limitations: no limitations - History of Present Illness Initial comments: Patient is a pleasant 84-year-old female presenting to the emergency department with nausea vomiting. Onset of symptoms was yesterday evening. Patient has vom ited around 3 times. Patient still remains nauseous. Patient has mild discomfort of her upper abdomen. 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 Patient has yet to follow up with oncology regarding this. No constipation or diarrhea. No fever. No chest pain. - Related Data Home Medications Medication Instructions Recorded Confirmed Folic Acid 1 mg PO DAILY 05/18/14 12/29/18 Magnesium Oxide [Mag-Ox] 250 mg PO DAILY 05/18/14 12/29/18 Metoprolol Succinate [Toprol XL] 50 mg PO BID 05/18/14 12/29/18 Omeprazole [PriLOSEC] 20 mg PO AC-BID 05/18/14 12/29/18 Empagliflozin [Jardiance] 25 mg PO DAILY 12/05/18 12/29/18 Insulin Aspart [Novolog] 7 unit SQ AC-TID 12/05/18 12/29/18 Ramipril 10 mg PO BID 12/05/18 12/29/18 Insulin Glargine,Hum.rec.anlog 32 unit SQ HS 12/29/18 12/29/18 [Basaglar Kwikpen U-100] Previous Rx's Medication Instructions Recorded amLODIPine [Norvasc] 10 mg PO DAILY #30 tablet 07/10/14 Allergies Allergy/AdvReac Type Severity Reaction Status Date / Time clopidogrel bisulfate AdvReac Confusion Verified 04/02/20 08:04 [From Plavix] prednisone AdvReac Confusion Verified 04/02/20 08:04 zolpidem tartrate AdvReac Confusion Verified 04/02/20 08:04 [From Ambien] Review of Systems ROS Statement: Those systems with pertinent positive or pertinent negative responses have been documented in the HPI. ROS Other: All systems not noted in ROS Statement are negative. Constitutional: Denies: fever Eyes: Denies: eye pain ENT: Denies: ear pain Respiratory: Denies: cough, dyspnea Cardiovascular: Denies: chest pain Endocrine: Denies: fatigue Gastrointestinal: Reports: as per HPI, nausea, vomiting Genitourinary: Denies: dysuria Musculoskeletal: Denies: back pain Skin: Denies: rash Neurological: Denies: weakness Past Medical History Past Medical History: Coronary Artery Disease (CAD), Diabetes Mellitus, Hypertension Additional Past Medical History / Comment(s): Other HX: NIDDM, arthritis, bowel cancer, DJD, Recent admission 06/16/14-06/17/14 with bilateral radiculopathy from severe lumbosacral spine degenerative joint disease, anterior listhesis grade 1, L4 on L5. Last Myocardial Infarction Date:: 2004 History of Any Multi-Drug Resistant Organisms: None Reported Past Surgical History: Bowel Resection, Hysterectomy, Joint Replacement, Orthopedic Surgery Additional Past Surgical History / Comment(s): 2-3 yrs ago bowel resection- took out 10 inches of colon. cabg 3 vessel 2004, bladder suspensions 4-5 of them, L total knee replacement. Past Anesthesia/Blood Transfusion Reactions: No Reported Reaction Past Psychological History: No Psychological Hx Reported Smoking Status: Former smoker Past Alcohol Use History: None Reported Past Drug Use History: None Reported - Past Family History Father Family Medical History: Diabetes Mellitus, Vascular Disorder Additional Family Medical History / Comment(s): Father had an amputation of his legs Mother Family Medical History: Myocardial Infarction ([place]) General Exam Limitations: no limitations General appearance: alert, in no apparent distress Eye exam: Present: normal appearance Neck exam: Present: normal inspection Respiratory exam: Present: normal lung sounds bilaterally Cardiovascular Exam: Present: regular rate, normal rhythm Expanded Peripheral pulses: 2+: Radial (R), Radial (L), Dorsalis Pedis (R), Dorsalis Pedis (L) GI/Abdominal exam: Present: soft, tenderness (Mild epigastric tenderness). Absent: distended, guarding, rebound, rigid Extremities exam: Present: normal inspection Neurological exam: Present: alert Psychiatric exam: Present: normal affect, normal mood Skin exam: Present: normal color Course Vital Signs 04/02/20 07:59 Temperature 98.8 F Pulse Rate 84 Respiratory 18 Rate Blood Pressure 175/65 O2 Sat by Pulse 98 Oximetry - Reevaluation(s) Reevaluation #1: 04/02/20 09:44 Patient reevaluated. Nausea has improved. Patient still has discomfort. Patient is requesting further medication. Computed tomography scan will be ordered. EKG Findings - EKG Comments: EKG Findings:: Normal sinus rhythm 79. KS 138. QRS 74. QT 382. QTC 438. Normal axis. LVH. No acute ST change Medical Decision Making - Medical Decision Making Patient reevaluated and updated. Case discussed with Dr. Block, who will admit his patient. Surgery will be placed on consult. - Lab Data Result diagrams: 04/02/20 08:38 04/02/20 08:38 Lab Results 04/02/20 04/02/20 04/02/20 Range/Units 08:38 08:38 08:38 WBC 5.0 (3.8-10.6) k/uL RBC 4.81 (3.80-5.40) m/uL Hgb 12.2 (11.4-16.0) gm/dL Hct 36.3 (34.0-46.0) % MCV 75.5 L (80.0-100.0) fL MCH 25.4 (25.0-35.0) pg MCHC 33.6 (31.0-37.0) g/dL RDW 15.9 H (11.5-15.5) % Plt Count 174 (150-450) k/uL MPV 9.2 Neutrophils % 70 % Lymphocytes % 20 % Monocytes % 6 % Eosinophils % 2 % Basophils % 1 % Neutrophils # 3.5 (1.3-7.7) k/uL Lymphocytes # 1.0 (1.0-4.8) k/uL Monocytes # 0.3 (0-1.0) k/uL Eosinophils # 0.1 (0-0.7) k/uL Basophils # 0.0 (0-0.2) k/uL Microcytosis Slight PT 9.6 (9.0-12.0) sec INR 0.9 (<1.2) APTT 20.6 L (22.0-30.0) sec Sodium (137-145) mmol/L Potassium (3.5-5.1) mmol/L Chloride (98-107) mmol/L Carbon Dioxide (22-30) mmol/L Anion Gap mmol/L BUN (7-17) mg/dL Creatinine (0.52-1.04) mg/dL Est GFR (CKD-EPI)AfAm (>60 ml/min/1.73 sqM) Est GFR (CKD-EPI)NonAf (>60 ml/min/1.73 sqM) Glucose (74-99) mg/dL Calcium (8.4-10.2) mg/dL Total Bilirubin (0.2-1.3) mg/dL AST (14-36) U/L ALT (4-34) U/L Alkaline Phosphatase (38-126) U/L Total Protein (6.3-8.2) g/dL Albumin (3.5-5.0) g/dL Amylase (30-110) U/L Lipase (23-300) U/L Urine Color Yellow Urine Appearance Clear (Clear) Urine pH 6.5 (5.0-8.0) Ur Specific Maple 1.019 (1.001-1.035) Urine Protein Trace H (Negative) Urine Glucose (UA) Negative (Negative) Urine Ketones Negative (Negative) Urine Blood Negative (Negative) Urine Nitrite Negative (Negative) Urine Bilirubin Negative (Negative) Urine Urobilinogen <2.0 (<2.0) mg/dL Ur Leukocyte Esterase Moderate H (Negative) Urine RBC 1 (0-5) /hpf Urine WBC 7 H (0-5) /hpf Ur Squamous Epith Cells 3 (0-4) /hpf Urine Bacteria Rare H (None) /hpf Hyaline Casts 41 H (0-2) /lpf Urine Mucus Rare H (None) /hpf 04/02/20 Range/Units 08:38 WBC (3.8-10.6) k/uL RBC (3.80-5.40) m/uL Hgb (11.4-16.0) gm/dL Hct (34.0-46.0) % MCV (80.0-100.0) fL MCH (25.0-35.0) pg MCHC (31.0-37.0) g/dL RDW (11.5-15.5) % Plt Count (150-450) k/uL MPV Neutrophils % % Lymphocytes % % Monocytes % % Eosinophils % % Basophils % % Neutrophils # (1.3-7.7) k/uL Lymphocytes # (1.0-4.8) k/uL Monocytes # (0-1.0) k/uL Eosinophils # (0-0.7) k/uL Basophils # (0-0.2) k/uL Microcytosis PT (9.0-12.0) sec INR (<1.2) APTT (22.0-30.0) sec Sodium 138 (137-145) mmol/L Potassium 4.9 (3.5-5.1) mmol/L Chloride 108 H (98-107) mmol/L Carbon Dioxide 21 L (22-30) mmol/L Anion Gap 9 mmol/L BUN 29 H (7-17) mg/dL Creatinine 1.10 H (0.52-1.04) mg/dL Est GFR (CKD-EPI)AfAm 54 (>60 ml/min/1.73 sqM) Est GFR (CKD-EPI)NonAf 47 (>60 ml/min/1.73 sqM) Glucose 141 H (74-99) mg/dL Calcium 9.8 (8.4-10.2) mg/dL Total Bilirubin 0.6 (0.2-1.3) mg/dL AST 29 (14-36) U/L ALT 14 (4-34) U/L Alkaline Phosphatase 107 (38-126) U/L Total Protein 8.3 H (6.3-8.2) g/dL Albumin 4.6 (3.5-5.0) g/dL Amylase 76 (30-110) U/L Lipase 160 (23-300) U/L Urine Color Urine Appearance (Clear) Urine pH (5.0-8.0) Ur Specific Maple (1.001-1.035) Urine Protein (Negative) Urine Glucose (UA) (Negative) Urine Ketones (Negative) Urine Blood (Negative) Urine Nitrite (Negative) Urine Bilirubin (Negative) Urine Urobilinogen (<2.0) mg/dL Ur Leukocyte Esterase (Negative) Urine RBC (0-5) /hpf Urine WBC (0-5) /hpf Ur Squamous Epith Cells (0-4) /hpf Urine Bacteria (None) /hpf Hyaline Casts (0-2) /lpf Urine Mucus (None) /hpf - Radiology Data Radiology results: report reviewed (Computed tomography scan shows early complete or partial small bowel obstruction), image reviewed (X-ray reveals no acute process.) Disposition Clinical Impression: Small bowel obstruction Disposition: ADMITTED IP TO THIS HOSP Is patient prescribed a controlled substance at d/c from ED?: No Referrals: Kenya Block MD [Primary Care Provider] - 1-2 days Decision Time: 10:53
--- NOTE | 2020-04-02 09:18 | XR ---
EXAMINATION TYPE: XR KUB DATE OF EXAM: 04/02/2020 COMPARISON: 07/28/2013 HISTORY: Pain TECHNIQUE: Single supine KUB image of the abdomen is obtained FINDINGS: Small bowel demonstrates no evidence for dilatation or air fluid levels. Gas and fecal material is seen in non-distended colon. No convincing evidence for pneumoperitoneum. No unusual calcifications. The lung bases are clear. The osseous structures are intact. IMPRESSION: 1. Overall nonobstructive bowel gas pattern.
[2020-04-02 09:22] LABS: Appearance,Urine Clear (Clear); Bacteria,Urine Rare /hpf; Bilirubin,Urine Negative (Negative); Blood,Urine Negative (Negative); Color,Urine Yellow; Glucose,Urine (UA) Negative (Negative); Hyaline Casts,Urine 41 /lpf (0-2); Ketones,Urine Negative (Negative); Leukocyte Esterase,Urine Moderate (Negative); Mucus,Urine Rare /hpf; Nitrite,Urine Negative (Negative); PH, Urine 6.5 (5.0-8.0); Protein,Urine Trace (Negative); RBC,Urine 1 /hpf (0-5); Specific Gravity,Urine 1.019 (1.001-1.035); Squamous Epithelial Cell,Urine 3 /hpf (0-4); Urobilinogen,Urine <2.0 mg/dL (<2.0); WBC,Urine 7 /hpf (0-5)
[2020-04-02 09:25] LABS: Albumin 4.6 g/dL (3.5-5.0); Calcium 9.8 mg/dL (8.4-10.2); Potassium 4.9 mmol/L (3.5-5.1); Total Bilirubin 0.6 mg/dL (0.2-1.3); Total Protein 8.3 g/dL (6.3-8.2)
[2020-04-02 09:32] LABS: INR 0.9 (<1.2); Prothrombin Time 9.6 sec (9.0-12.0)
[2020-04-02 09:36] LABS: Basophils % (A) 1 %; Eosinophils # (A) 0.1 k/uL (0-0.7); Eosinophils % (A) 2 %; HCT 36.3 % (34.0-46.0); HGB 12.2 gm/dL (11.4-16.0); Lymphocytes % (A) 20 %; MCH 25.4 pg (25.0-35.0); MCHC 33.6 g/dL (31.0-37.0); MCV 75.5 fL (80.0-100.0); Mean Platelet Volume 9.2; Microcytosis Slight; Monocytes # (A) 0.3 k/uL (0-1.0); Monocytes % (A) 6 %; Neutrophils # (A) 3.5 k/uL (1.3-7.7); Neutrophils % (A) 70 %; Platelet Count 174 k/uL (150-450); RBC 4.81 m/uL (3.80-5.40); RDW 15.9 % (11.5-15.5)
[2020-04-02] MEDS ORDERED: MORPHINE SULFATE 4 MG/ML SYRINGE IVP STA (09:44)
[2020-04-02 09:46] LABS: Partial Thromboplastin Time 20.6 sec (22.0-30.0)
--- NOTE | 2020-04-02 10:26 | CT ---
EXAMINATION TYPE: CT abdomen pelvis w con DATE OF EXAM: 04/02/2020 COMPARISON: 04/11/2020 HISTORY: Abdominal pain and vomitting CT DLP: 637.1 mGycm CONTRAST: CT scan of the abdomen and pelvis is performed without Oral Contrast and with IV Contrast, patient in jected with 100 ml mL of Isovue 300. FINDINGS: LUNG BASES-: No visible nodule. No infiltrate. LIVER/GB: Cholecystectomy clips are in place. No space occupying hepatic lesion. Biliary tree is o f normal caliber. PANCREAS: No inflammation. No distinct mass. SPLEEN: No splenic enlargement. No lesion seen. ADRENALS: No nodule. No thickening. KIDNEYS/BLADDER: No hydronephrosis. No nephrolithiasis. No distinct renal mass. Urinary bladder g rossly unremarkable. BOWEL: There is dilated small bowel measuring up to 3 cm with low abdominal transition at the site of prior small bowel resection. suspect early complete or partial small bowel obstruction. No evidence for free air or abscess. Scattered intracolonic debris noted. Fat-containing supraumbilical hernia. GENITAL ORGANS: Hysterectomy changes noted. LYMPH NODES: Again noted is a right lower quadrant mesenteric lymph node measuring 2.4 cm. AORTA: No significant abnormality. OSSEOUS STRUCTURES: Severe degenerative changes noted of the lumbar spine. OTHER: No significant additional abnormality is seen. IMPRESSION: 1. There is dilated small bowel measuring up to 3 cm with low abdominal transition at the site of laura or small bowel resection. suspect early complete or partial small bowel obstruction.
[2020-04-02] MEDS ORDERED: NALOXONE 0.4 MG/ML 1 ML VIAL IV PRN (10:54)
[2020-04-02] MEDS ORDERED: ENALAPRILAT 1.25 MG/ML 1 ML VIAL IVP PRN (13:09)
--- NOTE | 2020-04-02 13:09 | P.HPIM ---
History of Present Illness H&P Date: 04/02/20 Chief Complaint: Partial small bowel obstruction. This is an 84-year-old female one of my patient with a previous medical history significant for coronary artery disease status post coronary artery bypass graft for 3 vessels back in 2004, hypertension and hypertensive cardiovascular disease, hyperlipidemia, diabetes mellitus type 2 with diabetic polyneuropathy, history of carcinoid tumor status post appendectomy was under the care of hematology regurgitation stopped following up with him for the past 2 years, patient presented to my office about a few weeks ago with increased abdominal pain associated with increased sweating and flushing laboratory evaluation that showed elevated chromogranin A this was followed by computed tomography scan of the abdomen and pelvis that showed evidence of soft tissue tumor in the mid right abdomen measured 2.72.57 m with enlarged lymph nodes diffuse larger than the CAT scan that was done back in 2012, she was supposed to follow-up with general surgery as well as hematology oncology for further evaluation and treatment however the patient developed to have a significant abdominal pain associated with nausea and vomiting last night and that she was passing some gas without any good bowel movement, she ended up coming to the ER at [facility] today for evaluation . She had had a computed tomography scan of the abdomen and pelvis with contrast that showed a partial small bowel obstruction or complete small bowel obstruction, with the same soft tissue density that she had on March, patient was admitted to the hospital general surgery consultation, NG tube will be placed Review of Systems Constitutional: Reports anorexia, Reports weakness, Reports weight loss Eyes: bilateral blurred vision, bilateral decreased vision, denies bulging eye Ears: deny: decreased hearing Ears, nose, mouth and throat: Denies dysphagia, Denies neck lump, Denies sore throat Cardiovascular: Reports decreased exercise tolerance, Reports dyspnea on exertion, Reports shortness of breath, Denies chest pain, Denies lightheadedness, Denies rapid heart beat, Denies syncope Respiratory: Denies congestion, Denies cough with sputum, Denies home oxygen, Denies sleep apnea, Denies snoring, Denies wheezing Gastrointestinal: Reports abdominal pain, Reports bloating, Reports change in bowel habits, Reports early satiety, Reports excessive gas, Reports loss of appetite, Reports nausea, Reports vomiting, Denies diarrhea, Denies dyspepsia, Denies jaundice, Denies melena Genitourinary: Reports nocturia, Denies dysuria Menstruation: Reports postmenopausal Musculoskeletal: Denies myalgias Musculoskeletal: absent: ankle pain, ankle stiffness, ankle swelling, elbow pain, elbow stiffness, elbow swelling, foot pain, foot stiffness, foot swelling, hand pain, hand stiffness, hand swelling, hip pain, hip stiffness, hip swelling, knee pain, knee stiffness, knee swelling, shoulder pain, shoulder stiffness, shoulder swelling, wrist pain, wrist stiffness, wrist swelling Integumentary: Denies pruritus, Denies rash Neurological: Denies numbness, Denies weakness Psychiatric: Reports anxiety, Reports memory loss, Denies sadness/tearfulness, Denies sleep disturbances, Denies suicidal ideation Endocrine: Denies fatigue, Denies weight change Past Medical History Past Medical History: Coronary Artery Disease (CAD), Diabetes Mellitus, GERD/Reflux, Hyperlipidemia, Hypertension, Osteoarthritis (OA) Additional Past Medical History / Comment(s): arthritis, bowel cancer 1999, DJD, chronic back pain. Last Myocardial Infarction Date:: 2004 History of Any Multi-Drug Resistant Organisms: None Reported Past Surgical History: Bowel Resection, Hysterectomy, Joint Replacement, Orthopedic Surgery Additional Past Surgical History / Comment(s): 2-3 yrs ago bowel resection- took out 10 inches of colon. cabg 3 vessel 2004, bladder suspensions 4-5 of them, L total knee replacement. Past Anesthesia/Blood Transfusion Reactions: No Reported Reaction Smoking Status: Former smoker (Patient used to smoke about half a pack per day she started when she was 17-year-old and quit in 1979.) - Past Family History Father Family Medical History: Diabetes Mellitus (Father at age 72 from diabetes mellitus type 2 and had peripheral vascular disease status post amputations of both legs.), Vascular Disorder Additional Family Medical History / Comment(s): Father had an amputation of his legs Mother Family Medical History: Myocardial Infarction ([place]) (Mother at age of 80 from myocardial infarction.) Brother(s) Family Medical History: Coronary Artery Disease (CAD) (Patient had 6 brothers both of them from [place] or diabetes.) Sister(s) Family Medical History: Diabetes Mellitus (Patient had 6 sisters most of them from diabetes or [place].) Daughter(s) Family Medical History: Renal Disease (Patient has 2 daughters one with chronic kidney disease.) Son(s) Family Medical History: No Reported History (Patient has 3 sons no major medical problems.) Medications and Allergies Home Medications Medication Instructions Recorded Confirmed Type amLODIPine [Norvasc] 10 mg PO DAILY #30 tablet 07/10/14 04/02/20 Rx Empagliflozin [Jardiance] 25 mg PO DAILY 12/05/18 12/29/18 History Insulin Aspart [Novolog] 7 unit SQ AC-TID 12/05/18 12/29/18 History Ramipril 10 mg PO BID 12/05/18 04/02/20 History Insulin Glargine,Hum.rec.anlog 32 unit SQ HS 12/29/18 04/02/20 History [Basaglar Kwikpen U-100] Acetaminophen Tab [Tylenol] 650 mg PO Q4H PRN 04/02/20 04/02/20 History Metoprolol Tartrate [Lopressor] 50 mg PO BID 04/02/20 04/02/20 History Naproxen Sodium [Aleve] 440 mg PO Q12H PRN 04/02/20 04/02/20 History Omeprazole 40 mg PO DAILY 04/02/20 04/02/20 History Vascepa 1gm 2 gm PO BID 04/02/20 04/02/20 History Allergies Allergy/AdvReac Type Severity Reaction Status Date / Time clopidogrel bisulfate AdvReac Confusion Verified 04/02/20 08:04 [From Plavix] prednisone AdvReac Confusion Verified 04/02/20 08:04 zolpidem tartrate AdvReac Confusion Verified 04/02/20 08:04 [From Ambien] Physical Exam Vitals: Vital Signs Temp Pulse Pulse Resp BP BP Pulse Ox 04/02/20 12:28 97.7 F 76 14 140/65 99 04/02/20 07:59 98.8 F 84 18 175/65 98 Intake and Output 04/01/20 04/02/20 04/02/20 22:59 06:59 14:59 Other: Weight 62.596 kg Physical examination: HEENT: Head is atraumatic, normocephalic, pupils were equal round reactive to light and accommodations, extraocular muscle movement were intact, mucous membranes of the mouth are somewhat dry . Neck: Supple, no JVP, decreased carotid upstroke brisk. Chest: Decreased breath sounds at the bases, few rhonchi, no expiratory wheezes, no chest wall tenderness, no intercostal retractions. Heart: First heart sound is depressed, second heart sound is normal, there is systolic ejection murmur 2/6 located at the left sternal border. Abdomen: Soft, moderate tenderness, moderate distention, depressed bowel sounds. Extremities: There is no edema, no calf tenderness, dorsalis pedis +1 bilaterally. Neurologic examination: Patient is awake alert and oriented 3, cranial nerves II-12 grossly intact, muscle power 4 out of 5 in upper and lower extremities bilaterally, deep tendon her flexor depressed, that neuropathic changes both lower extremities. Results CBC & Chem 7: 04/02/20 08:38 04/02/20 08:38 Labs: Abnormal Lab Results - Last 24 Hours (Table) 04/02/20 04/02/20 04/02/20 Range/Units 08:38 08:38 08:38 MCV 75.5 L (80.0-100.0) fL RDW 15.9 H (11.5-15.5) % APTT 20.6 L (22.0-30.0) sec Chloride (98-107) mmol/L Carbon Dioxide (22-30) mmol/L BUN (7-17) mg/dL Creatinine (0.52-1.04) mg/dL Glucose (74-99) mg/dL Total Protein (6.3-8.2) g/dL Urine Protein Trace H (Negative) Ur Leukocyte Esterase Moderate H (Negative) Urine WBC 7 H (0-5) /hpf Urine Bacteria Rare H (None) /hpf Hyaline Casts 41 H (0-2) /lpf Urine Mucus Rare H (None) /hpf 04/02/20 Range/Units 08:38 MCV (80.0-100.0) fL RDW (11.5-15.5) % APTT (22.0-30.0) sec Chloride 108 H (98-107) mmol/L Carbon Dioxide 21 L (22-30) mmol/L BUN 29 H (7-17) mg/dL Creatinine 1.10 H (0.52-1.04) mg/dL Glucose 141 H (74-99) mg/dL Total Protein 8.3 H (6.3-8.2) g/dL Urine Protein (Negative) Ur Leukocyte Esterase (Negative) Urine WBC (0-5) /hpf Urine Bacteria (None) /hpf Hyaline Casts (0-2) /lpf Urine Mucus (None) /hpf Thrombosis Risk Factor Assmnt - DVT/VTE Prophylaxis DVT/VTE Prophylaxis: Pharmacologic Prophylaxis ordered, Mechanical Prophylaxis ordered - Choose All That Apply Any of the Below Risk Factors Present?: Yes Each Factor Represents 1 point: Medical pt on bed rest Each Risk Factor Represents 3 Points: Age 75 years or older Thrombosis Risk Factor Assessment Total Risk Factor Score: 4 Thrombosis Risk Factor Assessment Level: Moderate Risk Assessment and Plan Assessment: Assessment and plan: 1. Partial small bowel obstruction. Insert NG tube, nothing per mouth, IV fluid in the form of normal saline at the 125 mL an hour., We'll start the patient on Zofran 4 mg IV push every 6 hours as needed, Protonix 40 mg IV push every 24 hours, start the patient on morphine 4 mg IV push every 4 hours as needed for pain control, general surgery consultation for further evaluation. 2. Right lower abdomen mesenteric soft tissue mass suggestive of possible carcinoid tumor. Patient chromogranin A as an outpatient is quite elevated, patient lost the follow-up with Dr. Velázquez in the past 2 years with a prior history of neuroendocrine tumor. 3. Hypertension and hypertensive cardiovascular disease. We will start the pa tient on Vasotec 1.25 mg IV push every 6 hours as needed. 4. Hyperlipidemia. We will hold Crestor and Vscepa. 5. Diabetes mellitus type 2. Start the patient on sliding scale insulin. Hold her oral medication. 6. GERD. Continue patient on Protonix 40 mg IV push every 24 hours. 7. Coronary artery disease post CABG . We'll hold the patient metoprolol this point in time, hold Crestor for now, hold the aspirin for now. 8. DVT prophylaxis. Lovenox 40 mg subcutaneously every 24 hours as well as knee-high MARISELA hose. 9. GI prophylaxis. Continue PPI. 10. Admit to inpatient. Estimate a length of stay 2 midnights. 11. Patient is full code.
[2020-04-02] MEDS ORDERED: INSULIN ASPART (NovoLOG) 100 UNIT/ML VIAL SQ SCH ×2 (13:15→17:30)
[2020-04-02] MEDS: MORPHINE SULFATE 4 MG/ML SYRINGE IV PRN ×2 (17:05→21:19)
[2020-04-02] MEDS: SODIUM CHLORIDE 0.9% 1,000 ML IV SCH ×2 (17:05→21:20)
[2020-04-02] MEDS: ONDANSETRON 4 MG/2 ML VIAL IVP PRN (17:08)
[2020-04-02 17:54] LABS: Glucose,Whole Blood 131 mg/dL (75-99)
[2020-04-02] MEDS: INSULIN ASPART (NovoLOG) 100 UNIT/ML VIAL SQ SCH ×2 (18:07→23:40)
[2020-04-02 23:39] LABS: Glucose,Whole Blood 103 mg/dL (75-99)
[2020-04-03] MEDS: SODIUM CHLORIDE 0.9% 1,000 ML IV SCH ×2 (05:52→08:04)
[2020-04-03 06:11] LABS: Glucose,Whole Blood 120 mg/dL (75-99)
[2020-04-03] MEDS: INSULIN ASPART (NovoLOG) 100 UNIT/ML VIAL SQ SCH ×3 (06:11→16:50)
[2020-04-03] MEDS: MORPHINE SULFATE 4 MG/ML SYRINGE IV PRN ×3 (07:59→20:09)
[2020-04-03] MEDS: ENOXAPARIN 40 MG/0.4 ML SYRINGE SQ SCH (08:01)
[2020-04-03] MEDS ORDERED: PANTOPRAZOLE 40 MG/10 ML VIAL IV SCH (09:00)
--- NOTE | 2020-04-03 10:58 | P.PN ---
Subjective Progress Note Date: 04/03/20 his is an 84-year-old female one of my patient with a previous medical history significant for coronary artery disease status post coronary artery bypass graft for 3 vessels back in 2004, hypertension and hypertensive cardiovascular disease, hyperlipidemia, diabetes mellitus type 2 with diabetic polyneuropathy, history of carcinoid tumor status post appendectomy was under the care of hematology regurgitation stopped following up with him for the past 2 years, patient presented to my office about a few weeks ago with increased abdominal pain associated with increased sweating and flushing laboratory evaluation that showed elevated chromogranin A this was followed by computed tomography scan of the abdomen and pelvis that showed evidence of soft tissue tumor in the mid right abdomen measured 2.72.57 m with enlarged lymph nodes diffuse larger than the CAT scan that was done back in 2012, she was supposed to follow-up with general surgery as well as hematology oncology for further ev aluation and treatment however the patient developed to have a significant abdominal pain associated with nausea and vomiting last night and that she was passing some gas without any good bowel movement, she ended up coming to the ER at [facility] today for evaluation . She had had a computed tomography scan of the abdomen and pelvis with contrast that showed a partial small bowel obstruction or complete small bowel obstruction, with the same soft tissue density that she had on March, patient was admitted to the hospital general surgery consultation, NG tube will be placed 04/03: Patient is sitting up in no apparent distress she denies any chest pain or shortness breath, she has not had any nausea or vomiting she refuses NG tube yesterday, we will start clear liquid diet, she did have a bowel movement last night, no active nausea or vomiting at this time, resume her medications, which surgical input. Likely obstruction is resolved, we'll check flat plate of the abdomen. Objective - Vital Signs Vital signs: Vital Signs Temp 97.6 F 04/03/20 07:55 Pulse 67 04/03/20 08:49 Resp 14 04/03/20 07:55 BP 163/69 04/03/20 08:49 Pulse Ox 100 04/03/20 07:55 Intake & Output 04/02/20 04/03/20 04/03/20 18:59 06:59 18:59 Output Total 30 Balance -30 Weight 62.596 kg Output: Emesis 30 Other: Voiding Method Toilet Toilet Toilet # Voids 2 - Exam Review of Systems Constitutional: Reports anorexia, Reports weakness, Reports weight loss Eyes: bilateral blurred vision, bilateral decreased vision, denies bulging eye Ears: deny: decreased hearing Ears, nose, mouth and throat: Denies dysphagia, Denies neck lump, Denies sore throat Cardiovascular: Reports decreased exercise tolerance, Reports dyspnea on exertion, Reports shortness of breath, Denies chest pain, Denies lightheadedness, Denies rapid heart beat, Denies syncope Respiratory: Denies congestion, Denies cough with sputum, Denies home oxygen, Denies sleep apnea, Denies snoring, Denies wheezing Gastrointestinal: Reports abdominal pain, Reports bloating, Reports change in bowel habits, Reports early satiety, Reports excessive gas, Reports loss of appetite, Reports nausea, Reports vomiting, Denies diarrhea, Denies dyspepsia, Denies jaundice, Denies melena Genitourinary: Reports nocturia, Denies dysuria Menstruation: Reports postmenopausal Musculoskeletal: Denies myalgias Musculoskeletal: absent: ankle pain, ankle stiffness, ankle swelling, elbow pain, elbow stiffness, elbow swelling, foot pain, foot stiffness, foot swelling, hand pain, hand stiffness, hand swelling, hip pain, hip stiffness, hip swelling, knee pain, knee stiffness, knee swelling, shoulder pain, shoulder stiffness, shoulder swelling, wrist pain, wrist stiffness, wrist swelling Integumentary: Denies pruritus, Denies rash Neurological: Denies numbness, Denies weakness Psychiatric: Reports anxiety, Reports memory loss, Denies sadness/tearfulness, Denies sleep disturbances, Denies suicidal ideation Endocrine: Denies fatigue, Denies weight change Physical examination: HEENT: Head is atraumatic, normocephalic, pupils were equal round reactive to light and accommodations, extraocular muscle movement were intact, mucous membranes of the mouth are somewhat dry . Neck: Supple, no JVP, decreased carotid upstroke brisk. Chest: Decreased breath sounds at the bases, few rhonchi, no expiratory wheezes, no chest wall tenderness, no intercostal retractions. Heart: First heart sound is depressed, second heart sound is normal, there is systolic ejection murmur 2/6 located at the left sternal border. Abdomen: Soft, moderate tenderness, moderate distention, depressed bowel sounds. Extremities: There is no edema, no calf tenderness, dorsalis pedis +1 bilaterally. Neurologic examination: Patient is awake alert and oriented 3, cranial nerves II-12 grossly intact, muscle power 4 out of 5 in upper and lower extremities bilaterally, deep tendon her flexor depressed, that neuropathic changes both lower extremities. - Labs CBC & Chem 7: 04/02/20 08:38 04/02/20 08:38 Labs: Abnormal Lab Results - Last 24 Hours (Table) 04/02/20 04/02/20 04/03/20 Range/Units 17:52 23:37 06:10 POC Glucose (mg/dL) 131 H 103 H 120 H (75-99) mg/dL Assessment and Plan Assessment: Assessment and plan: 1. Partial small bowel obstruction. I believe it has resolved. Start the patient on clear liquid diet, continue IV fluid resuscitation, restart her medication, with surgical input. 2. Right lower abdomen mesenteric soft tissue mass suggestive of possible c arcinoid tumor. Patient chromogranin A as an outpatient is quite elevated, patient lost the follow-up with Dr. Velázquez in the past 2 years with a prior history of neuroendocrine tumor. 3. Hypertension and hypertensive cardiovascular disease. We will resume metoprolol 50 mg orally twice every day, ramipril 10 mg orally twice every day. 4. Hyperlipidemia. We will continue Crestor 10 mg orally once a day as well as Vascepa 2 gr orally twice every day. 5. Diabetes mellitus type 2. We will resume Lantus 32 units at bedtime along with a sliding scale insulin. 6. GERD. Continue patient on omeprazole 20 mg orally once every day. 7. Coronary artery disease post CABG . Continue metoprolol 50 mg orally twice every day, Crestor 10 mg orally once every day. 8. DVT prophylaxis. Lovenox 40 mg subcutaneously every 24 hours as well as knee-high MARISELA hose. 9. GI prophylaxis. Continue PPI. 10. Increase activity.
[2020-04-03 12:03] LABS: Glucose,Whole Blood 158 mg/dL (75-99)
--- NOTE | 2020-04-03 12:35 | XR ---
EXAMINATION TYPE: XR abdomen complete w decub DATE OF EXAM: 04/03/2020 COMPARISON: 04/02/2020. HISTORY: Shortness of breath and abdominal pain. TECHNIQUE: Supine, upright, and left side down lateral decubitus views of the abdomen are obtained. FINDINGS: There is no evidence for pneumoperitoneum. The bowel gas pattern is unremarkable as there is air throughout nondilated small and large bowel. No sizeable air fluid levels. No mass effects are seen. No unusual calcifications. Cholecystectomy is noted. IMPRESSION: No acute abnormality.
[2020-04-03] MEDS: ONDANSETRON 4 MG/2 ML VIAL IVP PRN (16:47)
[2020-04-03 16:51] LABS: Glucose,Whole Blood 125 mg/dL (75-99)
[2020-04-03] MEDS: METOPROLOL TARTRATE 50 MG TAB PO SCH (20:02)
[2020-04-03] MEDS: lisinopriL 20 MG TAB PO SCH (20:02)
[2020-04-03 20:18] LABS: Glucose,Whole Blood 175 mg/dL (75-99)
[2020-04-03] MEDS: INSULIN DETEMIR (LEVEMIR) 100 UNIT/ML SYR SQ SCH (22:14)
[2020-04-03] MEDS: ACETAMINOPHEN TAB 325 MG TAB PO PRN (22:25)
--- NOTE | 2020-04-03 22:27 | P.GSCN ---
History of Present Illness Consult date: 04/03/20 History of present illness: This is an 84 year old female who has a copmlicated surgical and medical history, she has apparently been worked up in the past for carcinoid tumor however did not follow up. She has a remoted history of small bowel resection in [place] in the past she is unsure why. She was having some increasing abdominal pain in the lower abdomen and N/V at home. This has since improved, she had a BM yesterday. No abdominal pain reported today. She refused NGT Past Medical History Past Medical History: Coronary Artery Disease (CAD), Diabetes Mellitus, GERD/Reflux, Hyperlipidemia, Hypertension, Osteoarthritis (OA) Additional Past Medical History / Comment(s): arthritis, bowel cancer 1999, DJD, chronic back pain. Last Myocardial Infarction Date:: 2004 History of Any Multi-Drug Resistant Organisms: None Reported Past Surgical History: Bowel Resection, Hysterectomy, Joint Replacement, Orthopedic Surgery Additional Past Surgical History / Comment(s): 2-3 yrs ago bowel resection- took out 10 inches of colon. cabg 3 vessel 2004, bladder suspensions 4-5 of them, L total knee replacement. Past Anesthesia/Blood Transfusion Reactions: No Reported Reaction Smoking Status: Former smoker (Patient used to smoke about half a pack per day she started when she was 17-year-old and quit in 1979.) - Past Family History Brother(s) Family Medical History: Coronary Artery Disease (CAD) (Patient had 6 brothers both of them from [place] or diabetes.) Sister(s) Family Medical History: Diabetes Mellitus (Patient had 6 sisters most of them from diabetes or [place].) Daughter(s) Family Medical History: Renal Disease (Patient has 2 daughters one with chronic kidney disease.) Son(s) Family Medical History: No Reported History (Patient has 3 sons no major medical problems.) Father Family Medical History: Diabetes Mellitus (Father at age 72 from diabetes mellitus type 2 and had peripheral vascular disease status post amputations of both legs.), Vascular Disorder Additional Family Medical History / Comment(s): Father had an amputation of his legs Mother Family Medical History: Myocardial Infarction ([place]) (Mother at age of 80 from myocardial infarction.) Medications and Allergies Home Medications Medication Instructions Recorded Confirmed Type amLODIPine [Norvasc] 10 mg PO DAILY #30 tablet 07/10/14 04/02/20 Rx Empagliflozin [Jardiance] 25 mg PO DAILY 12/05/18 12/29/18 History Insulin Aspart [Novolog] 7 unit SQ AC-TID 12/05/18 12/29/18 History Ramipril 10 mg PO BID 12/05/18 04/02/20 History Insulin Glargine,Hum.rec.anlog 32 unit SQ HS 12/29/18 04/02/20 History [Basaglar Kwikpen U-100] Acetaminophen Tab [Tylenol] 650 mg PO Q4H PRN 04/02/20 04/02/20 History Metoprolol Tartrate [Lopressor] 50 mg PO BID 04/02/20 04/02/20 History Naproxen Sodium [Aleve] 440 mg PO Q12H PRN 04/02/20 04/02/20 History Omeprazole 40 mg PO DAILY 04/02/20 04/02/20 History Vascepa 1gm 2 gm PO BID 04/02/20 04/02/20 History Allergies Allergy/AdvReac Type Severity Reaction Status Date / Time clopidogrel bisulfate AdvReac Confusion Verified 04/02/20 08:04 [From Plavix] prednisone AdvReac Confusion Verified 04/02/20 08:04 zolpidem tartrate AdvReac Confusion Verified 04/02/20 08:04 [From Ambien] Surgical - Exam Osteopathic Statement: *. No significant issues noted on an osteopathic structural exam other than those noted in the History and Physical/Consult. Vital Signs Temp Pulse Resp BP Pulse Ox 98.8 F 84 18 175/65 98 04/02/20 07:59 04/02/20 07:59 04/02/20 07:59 04/02/20 07:59 04/02/20 07:59 - General well developed, well nourished, no distress - Respiratory normal expansion, normal respiratory effort - Abdomen Abdomen: soft, non tender - Psychiatric oriented to time, oriented to person, oriented to place Results - Labs 04/02/20 08:38 04/02/20 08:38 Abnormal Lab Results - Last 24 Hours (Table) 04/02/20 04/03/20 04/03/20 Range/Units 23:37 06:10 12:00 POC Glucose (mg/dL) 103 H 120 H 158 H (75-99) mg/dL 04/03/20 04/03/20 Range/Units 16:49 20:17 POC Glucose (mg/dL) 125 H 175 H (75-99) mg/dL Assessment and Plan Assessment: small bowel obstruction, resolved Plan: Patient is feeling better and had BM, clears as tolerated, no plans for acute surgical intervention. She should continue her workup with heme onc, if there is an intra abdominal carcinoid I would recommend surg onc eval as well.
[2020-04-04] MEDS: MORPHINE SULFATE 4 MG/ML SYRINGE IV PRN ×5 (00:34→20:10)
[2020-04-04] MEDS: ONDANSETRON 4 MG/2 ML VIAL IVP PRN ×3 (00:34→17:37)
[2020-04-04 00:43] LABS: Glucose,Whole Blood 137 mg/dL (75-99)
[2020-04-04] MEDS: SODIUM CHLORIDE 0.9% 1,000 ML IV SCH ×2 (00:43→04:16)
[2020-04-04] MEDS: INSULIN ASPART (NovoLOG) 100 UNIT/ML VIAL SQ SCH ×4 (00:46→17:29)
[2020-04-04 07:17] LABS: Glucose,Whole Blood 108 mg/dL (75-99)
[2020-04-04 07:27] LABS: Anisocytosis Slight; Basophils % (A) 1 %; Eosinophils # (A) 0.1 k/uL (0-0.7); Eosinophils % (A) 4 %; HCT 35.4 % (34.0-46.0); HGB 11.4 gm/dL (11.4-16.0); Hypochromasia Slight; Lymphocytes # (A) 1.2 k/uL (1.0-4.8); Lymphocytes % (A) 34 %; MCH 24.9 pg (25.0-35.0); MCV 77.8 fL (80.0-100.0); Mean Platelet Volume 7.7; Microcytosis Slight; Monocytes # (A) 0.2 k/uL (0-1.0); Monocytes % (A) 6 %; Neutrophils # (A) 1.8 k/uL (1.3-7.7); Neutrophils % (A) 53 %; Platelet Count 103 k/uL (150-450); RBC 4.55 m/uL (3.80-5.40); WBC 3.5 k/uL (3.8-10.6)
[2020-04-04] MEDS: ENOXAPARIN 40 MG/0.4 ML SYRINGE SQ SCH (07:46)
[2020-04-04] MEDS: METOPROLOL TARTRATE 50 MG TAB PO SCH ×2 (07:47→20:09)
[2020-04-04] MEDS: lisinopriL 20 MG TAB PO SCH ×2 (07:47→20:21)
[2020-04-04] MEDS: ATORVASTATIN 40 MG TAB PO SCH (07:47)
[2020-04-04] MEDS: Empagliflozin [Jardiance] PO SCH (08:31)
[2020-04-04] MEDS ORDERED: NON FORMULARY DRUG (Omeprazole [Omeprazole] 40 MG Capsule.Dr) PO SCH (09:00)
[2020-04-04 09:37] LABS: African American GFR (CKD) 68.5 (60.0-200.0); Albumin 4.1 g/dL (3.80-4.90); Albumin/Globulin Ratio 1.52 (1.60-3.17); Anion Gap 6.5 mmol/L (4.00-12.00); BUN/Creat Ratio 13.33 Ratio (12.00-20.00); Calcium 8.9 mg/dL (8.7-10.3); Carbon Dioxide 23.5 mmol/L (21.6-31.8); Globulin 2.7 g/dL (1.6-3.3); Non-African American GFR(CKD) 59.1 (60.0-200.0); Potassium 4.2 mmol/L (3.5-5.5); Total Bilirubin 0.3 mg/dL (0.2-1.2); Total Protein 6.8 g/dL (6.2-8.2)
[2020-04-04] MEDS: amLODIPine 10 MG TAB PO SCH (11:14)
[2020-04-04 11:39] LABS: Glucose,Whole Blood 94 mg/dL (75-99)
[2020-04-04] MEDS ORDERED: SCOPOLAMINE 1.5MG/72HR PATCH TRANSDERM SCH (14:30)
--- NOTE | 2020-04-04 15:52 | P.PN ---
Subjective Progress Note Date: 04/04/20 Patient sitting up in bed eating. No complaints. Denies BM Objective - Vital Signs Vital signs: Vital Signs Temp 98.5 F 04/04/20 14:46 Pulse 53 L 04/04/20 14:46 Resp 16 04/04/20 14:46 BP 148/64 04/04/20 14:46 Pulse Ox 98 04/04/20 14:46 Intake & Output 04/03/20 04/04/20 04/04/20 18:59 06:59 18:59 Output Total 2 Balance -2 Output: Urine 1 Stool 1 Other: Voiding Method Toilet Toilet # Voids 2 1 3 # Bowel Movements 1 - Constitutional General appearance: Present: cooperative - Cardiovascular Rhythm: regular - Gastrointestinal Gastrointestinal Comment(s): S/NT/ND - Labs CBC & Chem 7: 04/04/20 06:35 04/04/20 06:35 Labs: Abnormal Lab Results - Last 24 Hours (Table) 04/03/20 04/03/20 04/04/20 Range/Units 16:49 20:17 00:42 WBC (3.8-10.6) k/uL MCV (80.0-100.0) fL MCH (25.0-35.0) pg RDW (11.5-15.5) % Plt Count (150-450) k/uL Est GFR (CKD-EPI)NonAf (60.0-200.0) POC Glucose (mg/dL) 125 H 175 H 137 H (75-99) mg/dL AST (13-35) U/L Albumin/Globulin Ratio (1.60-3.17) g/dL 04/04/20 04/04/20 04/04/20 Range/Units 06:35 06:35 07:15 WBC 3.5 L (3.8-10.6) k/uL MCV 77.8 L (80.0-100.0) fL MCH 24.9 L (25.0-35.0) pg RDW 16.0 H (11.5-15.5) % Plt Count 103 L (150-450) k/uL Est GFR (CKD-EPI)NonAf 59.1 L (60.0-200.0) POC Glucose (mg/dL) 108 H (75-99) mg/dL AST 50 H (13-35) U/L Albumin/Globulin Ratio 1.52 L (1.60-3.17) g/dL Assessment and Plan Assessment: small bowel obstruction, resolving Plan: Diet as tolerated, patient may have suppository or enema as she has some fecal material in rectum on xray
[2020-04-04 16:43] LABS: Glucose,Whole Blood 144 mg/dL (75-99)
[2020-04-04 20:18] LABS: Glucose,Whole Blood 179 mg/dL (75-99)
[2020-04-04] MEDS: INSULIN DETEMIR (LEVEMIR) 100 UNIT/ML SYR SQ SCH (20:50)
[2020-04-05] MEDS: MORPHINE SULFATE 4 MG/ML SYRINGE IV PRN ×2 (00:02→06:00)
[2020-04-05 00:05] LABS: Glucose,Whole Blood 132 mg/dL (75-99)
[2020-04-05] MEDS: INSULIN ASPART (NovoLOG) 100 UNIT/ML VIAL SQ SCH ×5 (01:24→20:13)
[2020-04-05] MEDS: SODIUM CHLORIDE 0.9% 1,000 ML IV SCH ×2 (04:28→15:12)
[2020-04-05 06:11] LABS: Glucose,Whole Blood 83 mg/dL (75-99)
[2020-04-05 07:06] LABS: Glucose,Whole Blood 75 mg/dL (75-99)
[2020-04-05] MEDS: amLODIPine 10 MG TAB PO SCH (07:50)
[2020-04-05] MEDS: lisinopriL 20 MG TAB PO SCH ×2 (07:51→20:13)
[2020-04-05] MEDS: ATORVASTATIN 40 MG TAB PO SCH (07:51)
[2020-04-05] MEDS: ENOXAPARIN 40 MG/0.4 ML SYRINGE SQ SCH (07:52)
[2020-04-05] MEDS: Empagliflozin [Jardiance] PO SCH (07:52)
[2020-04-05] MEDS ORDERED: PROCHLORPERAZINE INJ 10 MG/2 ML VIAL IVP PRN (09:52)
[2020-04-05] MEDS: METOPROLOL TARTRATE 50 MG TAB PO SCH ×2 (09:52→20:14)
[2020-04-05 11:28] LABS: Glucose,Whole Blood 112 mg/dL (75-99)
--- NOTE | 2020-04-05 15:49 | P.PN ---
Subjective Progress Note Date: 04/05/20 his is an 84-year-old female one of my patient with a previous medical history significant for coronary artery disease status post coronary artery bypass graft for 3 vessels back in 2004, hypertension and hypertensive cardiovascular disease, hyperlipidemia, diabetes mellitus type 2 with diabetic polyneuropathy, history of carcinoid tumor status post appendectomy was under the care of hematology regurgitation stopped following up with him for the past 2 years, patient presented to my office about a few weeks ago with increased abdominal pain associated with increased sweating and flushing laboratory evaluation that showed elevated chromogranin A this was followed by computed tomography scan of the abdomen and pelvis that showed evidence of soft tissue tumor in the mid right abdomen measured 2.72.57 m with enlarged lymph nodes diffuse larger than the CAT scan that was done back in 2012, she was supposed to follow-up with general surgery as well as hematology oncology for further ev aluation and treatment however the patient developed to have a significant abdominal pain associated with nausea and vomiting last night and that she was passing some gas without any good bowel movement, she ended up coming to the ER at [facility] today for evaluation . She had had a computed tomography scan of the abdomen and pelvis with contrast that showed a partial small bowel obstruction or complete small bowel obstruction, with the same soft tissue density that she had on March, patient was admitted to the hospital general surgery consultation, NG tube will be placed 04/03: Patient is sitting up in no apparent distress she denies any chest pain or shortness breath, she has not had any nausea or vomiting she refuses NG tube yesterday, we will start clear liquid diet, she did have a bowel movement last night, no active nausea or vomiting at this time, resume her medications, which surgical input. Likely obstruction is resolved, we'll check flat plate of the abdomen. 04/04: Abdominal x-ray from yesterday afternoon revealed no acute abnormality. She has remained without NG tube placement but continues to complain of nausea for which scopolamine patch added. Patient has been seen by Dr. Hurtado with no plans for surgical intervention at this point. She is to be on clear liquid diet as tolerated. She has been afebrile, heart rate 60, blood pressure 118/67, pulse ox 98% on room air. Repeat blood work reveals that he received 3.5, hemoglobin 11.4 and platelet count 103. Electrolytes and renal function normal. AST 50. She is currently tolerating 50-100% of her meals. Diet will be advanced to full liquids. PT and OT consults added. 04/05: Patient continues to have nausea despite Zofran and scopolamine patch. Compazine will be added. She states she has had a normal bowel movement today. She also complains of feeling weak with generalized fatigue. PT and OT have evaluated and recommended home without need for home care. Plan will be to monitor patient overnight, try Compazine for nausea and possible discharge tomorrow. Objective - Vital Signs Vital signs: Vital Signs Temp 98.1 F 04/05/20 11:56 Pulse 71 04/05/20 11:56 Resp 17 04/05/20 11:56 BP 125/70 04/05/20 11:56 Pulse Ox 99 04/05/20 11:56 Intake & Output 04/04/20 04/05/20 04/05/20 18:59 06:59 18:59 Output Total 2 Balance -2 Output: Urine 1 Stool 1 Other: Voiding Method Toilet # Voids 3 1 1 # Bowel Movements 1 1 - Exam Review of Systems Constitutional: Reports anorexia, Reports weakness, Reports weight loss Eyes: bilateral blurred vision, bilateral decreased vision, denies bulging eye Ears: deny: decreased hearing Ears, nose, mouth and throat: Denies dysphagia, Denies neck lump, Denies sore throat Cardiovascular: Reports decreased exercise tolerance, Reports dyspnea on exertion, Reports shortness of breath, Denies chest pain, Denies lightheadedness, Denies rapid heart beat, Denies syncope Respiratory: Denies congestion, Denies cough with sputum, Denies home oxygen, Denies sleep apnea, Denies snoring, Denies wheezing Gastrointestinal: Reports abdominal pain, Reports bloating, Reports change in b owel habits, Reports early satiety, Reports excessive gas, Reports loss of appetite, Reports nausea, denies vomiting, Denies diarrhea, Denies dyspepsia, Denies jaundice, Denies melena Genitourinary: Reports nocturia, Denies dysuria Menstruation: Reports postmenopausal Musculoskeletal: Denies myalgias Musculoskeletal: absent: ankle pain, ankle stiffness, ankle swelling, elbow pain, elbow stiffness, elbow swelling, foot pain, foot stiffness, foot swelling, hand pain, hand stiffness, hand swelling, hip pain, hip stiffness, hip swelling, knee pain, knee stiffness, knee swelling, shoulder pain, shoulder stiffness, shoulder swelling, wrist pain, wrist stiffness, wrist swelling Integumentary: Denies pruritus, Denies rash Neurological: Denies numbness, Denies weakness Psychiatric: Reports anxiety, Reports memory loss, Denies sadness/tearfulness, Denies sleep disturbances, Denies suicidal ideation Endocrine: Denies fatigue, Denies weight change Physical examination: HEENT: Head is atraumatic, normocephalic, pupils were equal round reactive to light and accommodations, extraocular muscle movement were intact, mucous membranes of the mouth are somewhat dry . Neck: Supple, no JVP, decreased carotid upstroke brisk. Chest: Decreased breath sounds at the bases, few rhonchi, no expiratory wheezes, no chest wall tenderness, no intercostal retractions. Heart: First heart sound is depressed, second heart sound is normal, there is systolic ejection murmur 2/6 located at the left sternal border. Abdomen: Soft, moderate tenderness, moderate distention, depressed bowel sounds. Extremities: There is no edema, no calf tenderness, dorsalis pedis +1 bilaterally. Neurologic examination: Patient is awake alert and oriented 3, cranial nerves II-12 grossly intact, muscle power 4 out of 5 in upper and lower extremities bilaterally, deep tendon her flexor depressed, that neuropathic changes both lower extremities. - Labs CBC & Chem 7: 04/04/20 06:35 04/04/20 06:35 Labs: Abnormal Lab Results - Last 24 Hours (Table) 04/04/20 04/04/20 04/05/20 Range/Units 16:42 20:17 00:03 POC Glucose (mg/dL) 144 H 179 H 132 H (75-99) mg/dL 04/05/20 Range/Units 11:26 POC Glucose (mg/dL) 112 H (75-99) mg/dL Assessment and Plan Assessment: Assessment and plan: 1. Partial small bowel obstruction, resolved. Advance diet to consistent carb, continue IV fluid resuscitation, restart her medication, with surgical input. 2. Right lower abdomen mesenteric soft tissue mass suggestive of possible carcinoid tumor. Patient chromogranin A as an outpatient is quite elevated, patient lost the follow-up with Dr. Velázquez in the past 2 years with a prior history of neuroendocrine tumor. 3. Intractable nausea. Continue Zofran, scopolamine patch, and Compazine 10 mg IV every 6 hours as needed. 4. Hypertension and hypertensive cardiovascular disease. We will resume metoprolol 50 mg orally twice every day, ramipril 10 mg orally twice every day. 5. Hyperlipidemia. We will continue Crestor 10 mg orally once a day as well as Vascepa 2 gr orally twice every day. 6. Diabetes mellitus type 2. We will resume Lantus 32 units at bedtime along with a sliding scale insulin. 7. GERD. Continue patient on omeprazole 20 mg orally once every day. 8. Coronary artery disease post CABG . Continue metoprolol 50 mg orally twice every day, Crestor 10 mg orally once every day. 9. 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 10. DVT prophylaxis. Lovenox 40 mg subcutaneously every 24 hours as well as knee-high MARISELA hose. 11. GI prophylaxis. Continue PPI. 12. Increase activity, PT and OT evaluations. Discharge plan: home tomorrow
[2020-04-05 17:11] LABS: Glucose,Whole Blood 114 mg/dL (75-99)
[2020-04-05] MEDS: ACETAMINOPHEN TAB 325 MG TAB PO PRN (18:27)
[2020-04-05 19:52] LABS: Glucose,Whole Blood 140 mg/dL (75-99)
[2020-04-05] MEDS: INSULIN DETEMIR (LEVEMIR) 100 UNIT/ML SYR SQ SCH (20:13)
[2020-04-05 21:36] VITALS: RESP 18
[2020-04-06] MEDS: INSULIN ASPART (NovoLOG) 100 UNIT/ML VIAL SQ SCH ×3 (01:25→13:18)
[2020-04-06] MEDS: ACETAMINOPHEN TAB 325 MG TAB PO PRN (01:59)
[2020-04-06 05:36] LABS: Glucose,Whole Blood 51 mg/dL (75-99)
[2020-04-06 05:52] LABS: Glucose,Whole Blood 40 mg/dL (75-99)
[2020-04-06 06:03] LABS: Glucose,Whole Blood 65 mg/dL (75-99)
[2020-04-06 06:13] LABS: Glucose,Whole Blood 53 mg/dL (75-99)
[2020-04-06 06:17] LABS: Glucose,Whole Blood 82 mg/dL (75-99)
[2020-04-06] MEDS: SODIUM CHLORIDE 0.9% 1,000 ML IV SCH (06:25)
[2020-04-06 06:26] VITALS: BP 173/77; PULSE 66; TEMP 97.7
[2020-04-06 07:35] LABS: Anisocytosis Slight; Basophils % (A) 1 %; Eosinophils # (A) 0.1 k/uL (0-0.7); Eosinophils % (A) 4 %; HCT 34.2 % (34.0-46.0); HGB 10.9 gm/dL (11.4-16.0); Hypochromasia Slight; Lymphocytes # (A) 1.6 k/uL (1.0-4.8); Lymphocytes % (A) 46 %; MCH 24.8 pg (25.0-35.0); MCHC 31.9 g/dL (31.0-37.0); MCV 77.9 fL (80.0-100.0); Mean Platelet Volume 8.8; Microcytosis Slight; Monocytes # (A) 0.2 k/uL (0-1.0); Monocytes % (A) 6 %; Neutrophils # (A) 1.5 k/uL (1.3-7.7); Neutrophils % (A) 42 %; RDW 16.1 % (11.5-15.5); WBC 3.6 k/uL (3.8-10.6)
[2020-04-06 07:38] LABS: Platelet Count 162 k/uL (150-450)
[2020-04-06] MEDS: ENOXAPARIN 40 MG/0.4 ML SYRINGE SQ SCH (08:11)
[2020-04-06] MEDS: amLODIPine 10 MG TAB PO SCH (08:11)
[2020-04-06] MEDS: ATORVASTATIN 40 MG TAB PO SCH (08:11)
[2020-04-06] MEDS: lisinopriL 20 MG TAB PO SCH (08:11)
[2020-04-06] MEDS: METOPROLOL TARTRATE 50 MG TAB PO SCH (08:11)
[2020-04-06] MEDS: Empagliflozin [Jardiance] PO SCH (08:13)
[2020-04-06 08:14] LABS: Glucose,Whole Blood 165 mg/dL (75-99)
--- NOTE | 2020-04-06 10:53 | P.PN ---
Subjective Progress Note Date: 04/04/20 his is an 84-year-old female one of my patient with a previous medical history significant for coronary artery disease status post coronary artery bypass graft for 3 vessels back in 2004, hypertension and hypertensive cardiovascular disease, hyperlipidemia, diabetes mellitus type 2 with diabetic polyneuropathy, history of carcinoid tumor status post appendectomy was under the care of hematology regurgitation stopped following up with him for the past 2 years, patient presented to my office about a few weeks ago with increased abdominal pain associated with increased sweating and flushing laboratory evaluation that showed elevated chromogranin A this was followed by computed tomography scan of the abdomen and pelvis that showed evidence of soft tissue tumor in the mid right abdomen measured 2.72.57 m with enlarged lymph nodes diffuse larger than the CAT scan that was done back in 2012, she was supposed to follow-up with general surgery as well as hematology oncology for further ev aluation and treatment however the patient developed to have a significant abdominal pain associated with nausea and vomiting last night and that she was passing some gas without any good bowel movement, she ended up coming to the ER at [facility] today for evaluation . She had had a computed tomography scan of the abdomen and pelvis with contrast that showed a partial small bowel obstruction or complete small bowel obstruction, with the same soft tissue density that she had on March, patient was admitted to the hospital general surgery consultation, NG tube will be placed 04/03: Patient is sitting up in no apparent distress she denies any chest pain or shortness breath, she has not had any nausea or vomiting she refuses NG tube yesterday, we will start clear liquid diet, she did have a bowel movement last night, no active nausea or vomiting at this time, resume her medications, which surgical input. Likely obstruction is resolved, we'll check flat plate of the abdomen. 04/04: Abdominal x-ray from yesterday afternoon revealed no acute abnormality. She has remained without NG tube placement but continues to complain of nausea for which scopolamine patch added. Patient has been seen by Dr. Hurtado with no plans for surgical intervention at this point. She is to be on clear liquid diet as tolerated. She has been afebrile, heart rate 60, blood pressure 118/67, pulse ox 98% on room air. Repeat blood work reveals that he received 3.5, hemoglobin 11.4 and platelet count 103. Electrolytes and renal function normal. AST 50. She is currently tolerating 50-100% of her meals. Diet will be advanced to full liquids. PT and OT consults added. Objective - Vital Signs Vital signs: Vital Signs Temp 98 F 04/04/20 07:52 Pulse 52 L 04/04/20 11:01 Resp 13 04/04/20 07:52 BP 162/65 04/04/20 11:01 Pulse Ox 98 04/04/20 07:52 Intake & Output 04/03/20 04/04/20 04/04/20 18:59 06:59 18:59 Other: Voiding Method Toilet Toilet # Voids 2 1 - Exam Review of Systems Constitutional: Reports anorexia, Reports weakness, Reports weight loss Eyes: bilateral blurred vision, bilateral decreased vision, denies bulging eye Ears: deny: decreased hearing Ears, nose, mouth and throat: Denies dysphagia, Denies neck lump, Denies sore throat Cardiovascular: Reports decreased exercise tolerance, Reports dyspnea on exertion, Reports shortness of breath, Denies chest pain, Denies lightheadedne ss, Denies rapid heart beat, Denies syncope Respiratory: Denies congestion, Denies cough with sputum, Denies home oxygen, Denies sleep apnea, Denies snoring, Denies wheezing Gastrointestinal: Reports abdominal pain, Reports bloating, Reports change in bowel habits, Reports early satiety, Reports excessive gas, Reports loss of appetite, Reports nausea, Reports vomiting, Denies diarrhea, Denies dyspepsia, Denies jaundice, Denies melena Genitourinary: Reports nocturia, Denies dysuria Menstruation: Reports postmenopausal Musculoskeletal: Denies myalgias Musculoskeletal: absent: ankle pain, ankle stiffness, ankle swelling, elbow pain, elbow stiffness, elbow swelling, foot pain, foot stiffness, foot swelling, hand pain, hand stiffness, hand swelling, hip pain, hip stiffness, hip swelling, knee pain, knee stiffness, knee swelling, shoulder pain, shoulder stiffness, shoulder swelling, wrist pain, wrist stiffness, wrist swelling Integumentary: Denies pruritus, Denies rash Neurological: Denies numbness, Denies weakness Psychiatric: Reports anxiety, Reports memory loss, Denies sadness/tearfulness, Denies sleep disturbances, Denies suicidal ideation Endocrine: Denies fatigue, Denies weight change Physical examination: HEENT: Head is atraumatic, normocephalic, pupils were equal round reactive to light and accommodations, extraocular muscle movement were intact, mucous membranes of the mouth are somewhat dry . Neck: Supple, no JVP, decreased carotid upstroke brisk. Chest: Decreased breath sounds at the bases, few rhonchi, no expiratory wheezes, no chest wall tenderness, no intercostal retractions. Heart: First heart sound is depressed, second heart sound is normal, there is systolic ejection murmur 2/6 located at the left sternal border. Abdomen: Soft, moderate tenderness, moderate distention, depressed bowel sounds. Extremities: There is no edema, no calf tenderness, dorsalis pedis +1 bilaterally. Neurologic examination: Patient is awake alert and oriented 3, cranial nerves II-12 grossly intact, muscle power 4 out of 5 in upper and lower extremities bilaterally, deep tendon her flexor depressed, that neuropathic changes both lower extremities. - Labs CBC & Chem 7: 04/04/20 06:35 04/04/20 06:35 Labs: Abnormal Lab Results - Last 24 Hours (Table) 04/03/20 04/03/20 04/04/20 Range/Units 16:49 20:17 00:42 WBC (3.8-10.6) k/uL MCV (80.0-100.0) fL MCH (25.0-35.0) pg RDW (11.5-15.5) % Plt Count (150-450) k/uL Est GFR (CKD-EPI)NonAf (60.0-200.0) POC Glucose (mg/dL) 125 H 175 H 137 H (75-99) mg/dL AST (13-35) U/L Albumin/Globulin Ratio (1.60-3.17) g/dL 04/04/20 04/04/20 04/04/20 Range/Units 06:35 06:35 07:15 WBC 3.5 L (3.8-10.6) k/uL MCV 77.8 L (80.0-100.0) fL MCH 24.9 L (25.0-35.0) pg RDW 16.0 H (11.5-15.5) % Plt Count 103 L (150-450) k/uL Est GFR (CKD-EPI)NonAf 59.1 L (60.0-200.0) POC Glucose (mg/dL) 108 H (75-99) mg/dL AST 50 H (13-35) U/L Albumin/Globulin Ratio 1.52 L (1.60-3.17) g/dL Assessment and Plan Assessment: Assessment and plan: 1. Partial small bowel obstruction. I believe it has resolved. Advance diet to full diet, continue IV fluid resuscitation, restart her medication, with surgical input. 2. Right lower abdomen mesenteric soft tissue mass suggestive of possible carcinoid tumor. Patient chromogranin A as an outpatient is quite elevated, patient lost the follow-up with Dr. Velázquez in the past 2 years with a prior histo ry of neuroendocrine tumor. 3. Hypertension and hypertensive cardiovascular disease. We will resume metoprolol 50 mg orally twice every day, ramipril 10 mg orally twice every day. 4. Hyperlipidemia. We will continue Crestor 10 mg orally once a day as well as Vascepa 2 gr orally twice every day. 5. Diabetes mellitus type 2. We will resume Lantus 32 units at bedtime along with a sliding scale insulin. 6. GERD. Continue patient on omeprazole 20 mg orally once every day. 7. Coronary artery disease post CABG . Continue metoprolol 50 mg orally twice every day, Crestor 10 mg orally once every day. 8. 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 9. DVT prophylaxis. Lovenox 40 mg subcutaneously every 24 hours as well as knee-high MARISELA hose. 10. GI prophylaxis. Continue PPI. 11. Increase activity, PT and OT evaluations.
[2020-04-06 11:33] LABS: African American GFR (CKD) 60.3 (60.0-200.0); Albumin 4.4 g/dL (3.80-4.90); Albumin/Globulin Ratio 1.63 (1.60-3.17); Anion Gap 11.2 mmol/L (4.00-12.00); Calcium 9.7 mg/dL (8.7-10.3); Carbon Dioxide 22.8 mmol/L (21.6-31.8); Globulin 2.7 g/dL (1.6-3.3); Magnesium 1.7 mg/dL (1.5-2.4); Non-African American GFR(CKD) 52.1 (60.0-200.0); Potassium 3.8 mmol/L (3.5-5.5); Total Bilirubin 0.3 mg/dL (0.2-1.2); Total Protein 7.1 g/dL (6.2-8.2)
[2020-04-06 11:42] LABS: Glucose,Whole Blood 141 mg/dL (75-99)
--- NOTE | 2020-04-06 11:42 | P.DS ---
Providers Date of admission: 04/02/20 10:54 Expected date of discharge: 04/06/20 Attending physician: Kenya Block Consults: 04/02/20 10:54 Consult Physician Urgent Consulting Provider: Kal Hurtado Consult Reason/Comments: sbo Do you want consulting provider notified?: Yes Primary care physician: Kenya Block [place] [facility] Course: This is an 84-year-old female one of my patient with a previous medical history significant for coronary artery disease status post coronary artery bypass graft for 3 vessels back in 2004, hypertension and hypertensive cardiovascular disease, hyperlipidemia, diabetes mellitus type 2 with diabetic polyneuropathy, history of carcinoid tumor status post appendectomy was under the care of hematology regurgitation stopped following up with him for the past 2 years, patient presented to my office about a few weeks ago with increased abdominal pain associated with increased sweating and flushing laboratory evaluation that showed elevated chromogranin A this was followed by computed tomography scan of the abdomen and pelvis that showed evidence of soft tissue tumor in the mid right abdomen measured 2.72.57 m with enlarged lymph nodes diffuse larger than the CAT scan that was done back in 2012, she was supposed to follow-up with general surgery as well as hematology oncology for further evaluation and treatment however the patient developed to have a significant abdominal pain associated with nausea and vomiting last night and that she was passing some gas without any good bowel movement, she ended up coming to the ER at [facility] today for evaluation . She had had a computed tomography scan of the abdomen and pelvis with contrast that showed a partial small bowel obstruction or complete small bowel obstruction, with the same soft tissue density that she had on March, patient was admitted to the hospital general surgery consultation, NG tube will be placed 04/03: Patient is sitting up in no apparent distress she denies any chest pain or shortness breath, she has not had any nausea or vomiting she refuses NG tube yesterday, we will start clear liquid diet, she did have a bowel movement last night, no active nausea or vomiting at this time, resume her medications, which surgical input. Likely obstruction is resolved, we'll check flat plate of the abdomen. 04/04: Abdominal x-ray from yesterday afternoon revealed no acute abnormality. She has remained without NG tube placement but continues to complain of nausea for which scopolamine patch added. Patient has been seen by Dr. Hurtado with no plans for surgical intervention at this point. She is to be on clear liquid diet as tolerated. She has been afebrile, heart rate 60, blood pressure 118/67, pulse ox 98% on room air. Repeat blood work reveals that he received 3.5, hemoglobin 11.4 and platelet count 103. Electrolytes and renal function normal. AST 50. She is currently tolerating 50-100% of her meals. Diet will be advanced to full liquids. PT and OT consults added. 04/05: Patient continues to have nausea despite Zofran and scopolamine patch. Compazine will be added. She states she has had a normal bowel movement today. She also complains of feeling weak with generalized fatigue. PT and OT have evaluated and recommended home without need for home care. Plan will be to monitor patient overnight, try Compazine for nausea and possible discharge tomorrow. 04/06: Patient was eating 25-50% of her meals yesterday, she was able to eat all of her breakfast today. She had a low blood sugar of 40 this morning, patient did not take her night time snack. Patient has not received Compazine and her last dose of Zofran was on April 04. Patient will be discharged home today in stable condition. Discharge diagnoses: 1. Partial small bowel obstruction, resolved. 2. Right lower abdomen mesenteric soft tissue mass suggestive of possible carcinoid tumor. 3. Intractable nausea. 4. Hypertension and hypertensive cardiovascular disease. 5. Hyperlipidemia. 6. Diabetes mellitus type 2. 7. GERD. 8. Coronary artery disease post CABG . 9. 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 Discharge plan: home Impression and plan of care have been directed as dictated by the signing physician. Keisha Lew nurse practitioner acting as scribe for signing physician. Patient Condition at Discharge: Good Plan - Discharge Summary Discharge Rx Participant: Yes New Discharge Prescriptions: New Ondansetron [Zofran] 4 mg PO Q8HR PRN #30 tab PRN Reason: Nausea Continue amLODIPine [Norvasc] 10 mg PO DAILY #30 tablet Ramipril 10 mg PO BID Insulin Glargine,Hum.rec.anlog [Nevaehaglyovany Lynne U-100] 32 unit SQ HS Vascepa 1gm 2 gm PO BID Metoprolol Tartrate [Lopressor] 50 mg PO BID Omeprazole 40 mg PO DAILY Naproxen Sodium [Aleve] 440 mg PO Q12H PRN PRN Reason: Pain Acetaminophen Tab [Tylenol] 650 mg PO Q4H PRN PRN Reason: Pain Empagliflozin [Jardiance] 10 mg PO DAILY INSULIN LISPRO (humaLOG) [humaLOG] 7 units SQ AC-TID Discharge Medication List amLODIPine [Norvasc] 10 mg PO DAILY #30 tablet 07/10/14 [Rx] Ramipril 10 mg PO BID 12/05/18 [History] Insulin Glargine,Hum.rec.anlog [Basaglar Kwikpen U-100] 32 unit SQ HS 12/29/18 [History] Acetaminophen Tab [Tylenol] 650 mg PO Q4H PRN 04/02/20 [History] Metoprolol Tartrate [Lopressor] 50 mg PO BID 04/02/20 [History] Naproxen Sodium [Aleve] 440 mg PO Q12H PRN 04/02/20 [History] Omeprazole 40 mg PO DAILY 04/02/20 [History] Vascepa 1gm 2 gm PO BID 04/02/20 [History] Empagliflozin [Jardiance] 10 mg PO DAILY 04/04/20 [History] INSULIN LISPRO (humaLOG) [humaLOG] 7 units SQ AC-TID 04/04/20 [History] Ondansetron [Zofran] 4 mg PO Q8HR PRN #30 tab 04/05/20 [Rx] Follow up Appointment(s)/Referral(s): Kenya Block MD [Primary Care Provider] - 04/11/20 3:15 pm Patient Instructions/Handouts: Acute Abdominal Pain (DC) Activity/Diet/Wound Care/Special Instructions: Hold metoprolol until seen by Dr. Block activity as tolerated consistent carb diet Discharge Disposition: HOME SELF-CARE
== END 2020-04-06 14:25 | disposition home or self-care (01) | DRG 390 ==
LOC: EC 07:59 → 5NMEDONC 10:54
PROVIDERS: ADMIT Internal Medicine; ATTEND Internal Medicine
PROC: 0D9670Z Drainage of Stomach with Drainage Device, Via Natural or Artificial Opening (ICD-10-PCS; principal; 2020-04-02)
DX: K56.601 Complete intestinal obstruction, unspecified as to cause (principal); D3A.098 Benign carcinoid tumors of other sites; D69.59 Other secondary thrombocytopenia; D72.819 Decreased white blood cell count, unspecified; E11.42 Type 2 diabetes mellitus with diabetic polyneuropathy; E78.5 Hyperlipidemia, unspecified; I11.9 Hypertensive heart disease without heart failure; I25.10 Atherosclerotic heart disease of native coronary artery without angina pectoris; I25.2 Old myocardial infarction; K21.9 Gastro-esophageal reflux disease without esophagitis; Z79.4 Long term (current) use of insulin; Z79.899 Other long term (current) drug therapy; Z82.49 Family history of ischemic heart disease and other diseases of the circulatory system; Z83.3 Family history of diabetes mellitus; Z87.891 Personal history of nicotine dependence; Z90.49 Acquired absence of other specified parts of digestive tract; Z90.710 Acquired absence of both cervix and uterus; Z95.1 Presence of aortocoronary bypass graft; Z96.652 Presence of left artificial knee joint; Z85.038 Personal history of other malignant neoplasm of large intestine; M54.9 Dorsalgia, unspecified; G89.29 Other chronic pain; Z84.1 Family history of disorders of kidney and ureter; M19.90 Unspecified osteoarthritis, unspecified site; Z88.8 Allergy status to other drugs, medicaments and biological substances
CPT/HCPCS: 36415; 74018; 74021; 74177; 80053; 81001; 82150; 83690; 83735; 85025; 85610; 85730; 93005; 96361; 96374; 96375; 99285

== ENCOUNTER → 2020-09-09 | Outpatient (CLI) | payer MEDICARE ==
--- NOTE | 2020-09-14 07:28 | CT ---
EXAMINATION TYPE: CT ChestAbdPelvis w con DATE OF EXAM: 09/09/2020 COMPARISON: Outside PET/CT May 30, 2020. Most recent CT April 02, 2020 and older CTs HISTORY: follow up colon cancer CT DLP: 1015 mGycm. Automated Exposure Control for Dose Reduction was Utilized. CONTRAST: CT scan of the thorax, abdomen and pelvis is performed with IV Contrast, patient injected with 80 mL of Isovue 300. FINDINGS: LUNGS: Mild underlying emphysematous change. No suspicious greater than 5 mm noncalcified nodules or masses. There is 4 mm calcified right lower lobe nodule or granuloma image 40. Mild biapical scarring . No pleural effusion or pneumothorax seen bilaterally MEDIASTINUM: There are no new greater than 1 cm noncalcified hilar or mediastinal lymph nodes. Calcif ied right hilar lymph nodes redemonstrated. No cardiomegaly or pericardial effusion is seen. Post-CA BG changes with mediastinal clips and sternal wires. OTHER: Suspicious 1.0 cm well-defined low dense lesion left breast axial image 20 somewhat more promi nent from outside PET/CT. LIVER/GB: Punctate calcification in the liver. Cholecystectomy clips. PANCREAS: No significant abnormality is seen. SPLEEN: No significant abnormality is seen. ADRENALS: No significant abnormality is seen. KIDNEYS: Symmetric cortical medullary uptake and excretion without hydronephrosis seen bilaterally. BOWEL: Oral contrast reaches level of mid transverse colon. No suspicious small or large bowel dilata tion. Scattered diverticula throughout the colon. Surgical sutures from prior bowel anastomosis anter ior pelvis near image 94 are less well seen on current study. No obvious mass or nodule at this level . Mild wall thickening low-lying cecum into the right pelvis on current study GENITAL ORGANS: Uterus is surgically absent. LYMPH NODES: Persistent lobulated upper pelvic 2.3 x 2.2 cm mesenteric mass axial image 85 correspond s to lesion of concern on recent PET/CT. OSSEOUS STRUCTURES: Moderate to severe disc space narrowing with vacuum disc phenomenon L5-S1 level. Grade 1 anterolisthesis L4 on L5. Partial visualization of fusion plate lower cervical spine. Underly ing S-shaped scoliosis. OTHER: Moderate calcified plaque of the aorta extends into branch vessels. Small ventral wall hernia containing fat and tiny mesenteric vessels with wide neck axial image 73 unchanged from prior studies . IMPRESSION: 1. Stable upper pelvic mesenteric adenopathy or neoplasm. No new or enlarging masses or nodules noted . 2. Suspicious left breast 1.0 cm low dense lesion, advise mammogram and ultrasound diagnostic correla tion.
== END | disposition home or self-care (01) ==
LOC: RADCTMAIN 10:17
PROVIDERS: ATTEND Internal Medicine Hematology & Oncology
DX: C18.9 Malignant neoplasm of colon, unspecified (principal)
CPT/HCPCS: 82565; 84520; 71260; 74177; 36415; Q9967

== ENCOUNTER → 2020-10-20 | Outpatient (CLI) | payer MEDICARE, OTHER ==
--- NOTE | 2020-10-26 11:44 | MM ---
Reason for exam: additional evaluation requested from prior study. History: Benign MG stereo VAD BX RT of the right breast, December 16, 2018. Physical Findings: Nurse did not find any significant physical abnormalities on exam. MG 3D Diag Mammo W/Cad STAS Bilateral CC and MLO view(s) were taken. Prior study comparison: March 30, 2019, right breast US breast RT. December 16, 2018, right breast US breast limited RT. The breast tissue is heterogeneously dense. This may lower the sensitivity of mammography. Finding: There are typically benign vascular, dystrophic, round, linear calcifications in both breasts. Previous mammotome biopsy in the right breast. There is a chronic nodularity in the left breast, stable distortion left upper aspect. There is no new dominant lesion. These results were verbally communicated with the patient and result sheet given to the patient on 10/20/20. ASSESSMENT: Benign, BI-RAD 2 RECOMMENDATION: Routine screening mammogram of both breasts in 1 year.
--- NOTE | 2020-10-26 11:46 | USB ---
Reason for exam: additional evaluation requested from prior study. History: Benign MG stereo VAD BX RT of the right breast, December 16, 2018. US Breast Limited RT Right limited breast ultrasound including focal area of concern, retroareolar and axilla demonstrates a 0.3 x 0.3 x 0.2cm round, solid calcification at 3 o'clock, a 1.6 x 2.6 x 1.8cm irregular, mixed lesion at 7 o'clock prior measurement of 2.5 x 1.7 x 2.7cm and a 0.5 x 0.4 x 0.3cm oval, complex, cystic lesion at 10 o'clock periareolar. These results were verbally communicated with the patient and result sheet given to the patient on 10/20/20. ASSESSMENT: Probably benign, BI-RAD 3 RECOMMENDATION: Ultrasound of the right breast in 6 months.
== END | disposition home or self-care (01) ==
LOC: RADMAMWWP 13:09
PROVIDERS: ATTEND Surgery
DX: R92.1 Mammographic calcification found on diagnostic imaging of breast (principal); R92.2 Inconclusive mammogram
CPT/HCPCS: 77066; 76642; G0279; 77062

== ENCOUNTER → 2020-10-27 | Outpatient (CLI) | payer MEDICARE, OTHER ==
[2020-10-27 11:51] VITALS: BP 190/70; PULSE 57; RESP 16; TEMP 97.7
--- NOTE | 2020-10-27 12:11 | P.PN ---
Subjective Progress Note Date: 10/27/20 Principal diagnosis: abnormal breast ultrasound Romelia is an 84-year-old white female who comes for breast evaluation. She was last seen in 2019. She has a history of multiple bilateral breast biopsies all of which have been benign. Of significance is the fact that a daughter recently of metastatic invasive lobular breast cancer. Romelia underwent a bilateral mammogram on . This was benign BIRADS 2. She additionally underwent a right breast ultrasound which revealed a 1.6 x 1.8 cm irregular area at 7:00 lesion at 7:00 prior measurement 2.5 x 1.7 x 2.7 cm and a complex cystic lesion at 10:00 periareolar. This was felt to be probably benign BIRADS 3 and ultrasound of the right breast area of irregularity at the 7 o'clock position. This was reviewed with Dr. Turcios from radiology who felt that a core biopsy was recommended. Of importance is the fact that on her stereotactic core biopsy of the right breast performed on 12-16-18 she developed a hematoma which was followed conservatively. It appears that the area of concern on today's ultrasound is in proximity to the area of the prior hematoma. The patient states she has felt bilateral nodularity for about one month. She is not complaining of pain unless she pushes on it. The right breast pain is at approximately 2:00, the left breast is no longer tender. She is not complaining of any nipple discharge or skin changes. She was diagnosed with carcinoid tumor in 2013 found incidentally on a abdominal exploration secondary to recurrent bowel obstructions. At this time she has had a recurrence, she had a bowel obstruction in Jun 2020 and was treated conservatively. She is following at [facility]. Family History: 1. daughter: metastatic invasive lobular from her left breast, dx. at 63; July 29, 2020 2. paternal aunt: lung cancer 3. brother: leukemia 4. 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 Bland 2. 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 tripple bypass 5. left knee replacement 6. torn meniscus right knee 7. neck surgery (cadaver bone placed) Medical History: 1. diabetes 2. HTN 3. high cholesterol 4. GERD 5. CAD 6. history of carcinoid tumor 7. arthritis Social History: smoke: stopped 20 years ago alcohol: none drugs: none - Constitutional Constitutional: Denies chills, Denies fever - EENT Eyes: denies blurred vision, denies pain Ears: deny: decreased hearing, tinnitus Ears, nose, mouth and throat: Denies headache, Denies sore throat - Breasts Breasts: bilateral: as per HPI - Cardiovascular Comment: CAD Cardiovascular: Reports high blood pressure - Respiratory Respiratory: Denies cough, - Gastrointestinal Comment: carcinoid tumor surgery in past, history of diverticular disease, diverticular disease in remaining colon - Genitourinary (Female) Genitourinary: Denies dysuria, Denies hematuria - Menstruation Menstruation: Reports postmenopausal - Musculoskeletal Comment: arthritis - Integumentary Integumentary: Denies pruritus, Denies rash - Neurological Neurological: Denies numbness, Denies weakness - Psychiatric Psychiatric: Denies anxiety, Denies depression - Endocrine Comment: diabetes 23 years - Hematologic/Lymphatic Comment: none - Allergic/Immunologic Allergic/Immunologic: Reports as per HPI Objective - Exam BMI 24 - Constitutional General appearance: Present: average body habitus - EENT Eyes: Present: EOMI - Neck Neck: Present: normal ROM - Respiratory Respiratory: bilateral: CTA - Cardiovascular Rhythm: regular Heart sounds: normal: S1, S2 - Integumentary Integumentary: Present: normal turgor - Musculoskeletal Musculoskeletal: Present: gait normal - Psychiatric Psychiatric: Present: A&O x's 3, appropriate affect, intact judgment & insight - Additional findings Additional findings: Breast exam: BRA: 34C Inspection: Grade 3 ptosis bilateral Palpation: Right breast: Multi-positional exam fibrocystic changes, no discrete dominant masses or nodules of concern Right axilla: No adenopathy of concern Left breast: Multi-positional exam fibrocystic changes, no discrete dominant masses or nodules of concern Assessment and Plan Assessment: Impression: 1. Abnormal right breast ultrasound/possible resolving hematoma however the area is irregular and after review with radiology is been recommended an ultrasound core biopsy be performed 2. Daughter recently of metastatic invasive lobular breast cancer 3. Fibrocystic breast changes 4. Hematoma following stereotactic core biopsy of the right breast in 2019 may be the ultrasound abnormality which is seen 5. Diabetes 6. Hypertension 7. High cholesterol 8. GERD 9. Coronary artery disease 10. History of recurrent carcinoid tumor/ she has not had any symptoms of carcinoid syndrome 11. Arthritis Plan: 1. Ultrasound core biopsy right breast 7:00 lesion [address]ance from Dr. Velázquez related to carcinoid tumor Risk and benefits of procedure discussed with the patient and her daughter. They understand and wish to proceed. Cc: Dr. Block
== END ==
LOC: WWCWWP 11:26
PROVIDERS: ATTEND Surgery
DX: R92.8 Other abnormal and inconclusive findings on diagnostic imaging of breast (principal); N60.11 Diffuse cystic mastopathy of right breast; N60.12 Diffuse cystic mastopathy of left breast; N64.89 Other specified disorders of breast; E11.9 Type 2 diabetes mellitus without complications; I10 Essential (primary) hypertension; I25.10 Atherosclerotic heart disease of native coronary artery without angina pectoris; K21.9 Gastro-esophageal reflux disease without esophagitis; E78.00 Pure hypercholesterolemia, unspecified; M19.90 Unspecified osteoarthritis, unspecified site; Z86.012 Personal history of benign carcinoid tumor; Z88.8 Allergy status to other drugs, medicaments and biological substances; Z88.2 Allergy status to sulfonamides; Z87.891 Personal history of nicotine dependence

== ENCOUNTER 2020-11-04 08:19 | Day surgery (SDC) | payer MEDICARE, OTHER ==
[2020-11-02 09:50] VITALS: BMI 24.0
[~2020-11-04 08:19] MED LIST: LIDOCAINE 1% (10MG/ML) FOR IV START INTRADERMA PRN
[2020-11-04 09:06] VITALS: RESP 16
[2020-11-04] MEDS: LACTATED RINGERS 1,000 ML IV SCH ×2 (09:12→09:20)
[2020-11-04 09:13] LABS: Glucose,Whole Blood 101 mg/dL (75-99)
[2020-11-04] MEDS ORDERED: PROPOFOL 10 MG/ML 20 ML VIAL IV ONE (09:29)
[2020-11-04 10:04] LABS: Glucose,Whole Blood 103 mg/dL (75-99)
[2020-11-04 10:24] VITALS: BP 137/61; PULSE 55
--- NOTE | 2020-11-04 10:45 | P.PCN ---
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 She had a CT of the abdomen and pelvis done in March of this year and was noted to have recurrent. She is being followed by Dr. Moulton at [facility] identified. She is scheduled for a surveillance colonoscopy today. PROCEDURE PERFORMED: Colonoscopy. PREOPERATIVE DIAGNOSIS: Follow-up recurrent small bowel carcinoid diagnosed 6 months ago IV sedation per Anesthesia. PROCEDURE: After informed consent was obtained, the patient, was brought into the endoscopy unit. IV sedation was administered by Anesthesia under continuous monitoring. Digital rectal examination was normal. Initially the Olympus CF-160 flexible video colonoscope was then inserted in the rectum, gradually advanced into the cecum with moderate difficulty. Careful examination was performed as the scope was gradually being withdrawn. Ileocecal valve and the appendiceal orifice were visualized and appeared normal. Prep was fair.. Mucosa of the cecum, ascending colon, transverse colon, descending colon, sigmoid colon, and rectum appeared normal. Diffuse scattered diverticulosis seen. Retroflexion was performed in the rectum and no lesions were seen. The patient tolerated the procedure well. IMPRESSION: Normal-appearing colon from rectum to cecum with no evidence of colitis or colorectal neoplasia . Diffuse diverticulosisthroughout the entire colon. RECOMMENDATIONS: Findings of this examination were discussed with the patient as well as his family. She was advised to be a high-fiber diet and take fiber supplements a regular basis..
== END 2020-11-04 10:45 | disposition home or self-care (01) ==
LOC: ORWHC2ENDO 08:19
PROVIDERS: ATTEND Internal Medicine Gastroenterology
DX: Z12.11 Encounter for screening for malignant neoplasm of colon (principal); G47.33 Obstructive sleep apnea (adult) (pediatric); E11.9 Type 2 diabetes mellitus without complications; I50.9 Heart failure, unspecified; I25.10 Atherosclerotic heart disease of native coronary artery without angina pectoris; Z88.8 Allergy status to other drugs, medicaments and biological substances; Z79.899 Other long term (current) drug therapy
CPT/HCPCS: 45378; J2704

== ENCOUNTER → 2020-11-16 | Day surgery (SDC) | payer MEDICARE, OTHER ==
[2020-11-16 12:15] VITALS: RESP 16
[2020-11-16 13:40] VITALS: BP 157/53; PULSE 50; TEMP 98.1
--- NOTE | 2020-11-16 14:11 | USB ---
EXAMINATION TYPE: US biopsy breast add' l VAD RT, US biopsy breast VAD RT, MG diagnostic mammo RT wo CAD DATE OF EXAM: 11/16/2020 CLINICAL HISTORY: R92.8, ABN MAMM. TECHNIQUE: Ultrasound guided core biopsy of RIGHT breast. COMPARISON: NONE FINDINGS: The procedure of ultrasound guided core biopsy was explained to the patient. Benefits, alt ernatives, and risks were discussed. An informed consent was then obtained. The patient was placed in supine positioning for imaging and for the procedure. The overlying skin w as prepped and draped in usual sterile fashion. Lidocaine buffered with bicarbonate was used as anes thetic into the skin and subcutaneous tissue up to area of concern in the right breast. A claudia was m solange with surgical scalpel. There are linear spiculated extensions from the main mass which were first biopsied at 7:00. This is LABELED SITE A. Under ultrasound guidance, a 12-gauge vacuum assisted b iopsy gun device was used to obtain 4 core samples. Following this, a biopsy clip was place in lesio n. Through this same site, the main larger lesion was biopsied. Lidocaine buffered with bicarbonate was used as anesthetic into the skin and subcutaneous tissue up to area of concern in the right 7:[address] Under ultrasound guidance, a 12-gauge vacuum assisted biopsy gun device was used to obtain 3 cor e samples. Following this, a biopsy clip was placed in lesion. Post diagnostic mammogram shows 2 biopsy clips in appropriate position. The patient tolerated the procedure well without any immediate complication. The patient was kept in the radiology department for short stay after the procedure and then discharged home in stable condi tion. IMPRESSION: Successful, uncomplicated ultrasound guided core biopsy of areas of concern in the right breast at 7:00. Full pathology results to follow.
== END ==
LOC: RADUSWWP 12:00
PROVIDERS: ATTEND Surgery
DX: N64.1 Fat necrosis of breast (principal); L90.5 Scar conditions and fibrosis of skin
CPT/HCPCS: 88305; 77065; 19083; 19084; A4648; J2001

== ENCOUNTER → 2020-11-24 | Outpatient (CLI) | payer MEDICARE, OTHER ==
[2020-11-24 16:03] VITALS: BP 163/63; PULSE 54; RESP 12; TEMP 97.9
--- NOTE | 2020-11-24 16:54 | P.PN ---
Subjective Progress Note Date: 11/24/20 Principal diagnosis: Patient is an 84-year-old white female status post right breast ultrasound core biopsy of 2 sites at 7:00 on 77. Pathology was benign and concordant at both of these sites. Radiologist however, was noted to have some concerns about a 10 o'clock position in the right breast. The patient tolerated the procedure without difficulty. 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 Objective - Vital Signs Vital signs: Vital Signs Temp 97.9 F 11/24/20 15:58 Pulse 54 L 11/24/20 15:58 Resp 12 11/24/20 15:58 BP 163/63 11/24/20 15:58 Pulse Ox 96 11/24/20 15:58 Intake & Output 11/23/20 11/24/20 11/24/20 18:59 06:59 18:59 Weight 59.421 kg - Constitutional General appearance: Present: average body habitus - EENT Eyes: Present: EOMI - Respiratory Respiratory: bilateral: CTA - Cardiovascular Heart sounds: normal: S1, S2 - Integumentary Integumentary Comment(s): Biopsy site clean and dry right breast mild ecchymosis no infection or hematoma - Psychiatric Psychiatric: Present: A&O x's 3, appropriate affect, intact judgment & insight Assessment and Plan Assessment: Impression: 1. Patient status post ultrasound-guided core biopsy 2 sites right breast is benign 2. Patient with carcinoid tumor following up at [facility] for possible surgery 3. Patient must have cardiac clearance prior to her surgery Plan: 1. Right breast mammogram and ultrasound in 6 months 2. Will review mammogram and ultrasound with radiology to ascertain that there comfortable to wait 6 months regarding the 10:00 lesion 3. Depending on radiologist recommendations follow-up in 6 months. We will call her sooner CC: Dr. Block
== END ==
LOC: WWCWWP 15:32
PROVIDERS: ATTEND Surgery
DX: D3A.00 Benign carcinoid tumor of unspecified site (principal); Z88.8 Allergy status to other drugs, medicaments and biological substances; Z87.891 Personal history of nicotine dependence

== ENCOUNTER → 2020-12-08 | Outpatient (CLI) | payer MEDICARE, OTHER | END | disposition home or self-care (01) | LOC: RADNMMAIN 09:37 | DX: Z53.9 Procedure and treatment not carried out, unspecified reason (principal) ==

== ENCOUNTER → 2021-02-09 | Outpatient (CLI) | payer MEDICARE ==
[2021-02-10 00:56] LABS: LDL Cholesterol,Calculated 42.4 mg/dL (0.0-131.0); VLDL Calculation 27.2 mg/dL (5.00-40.00)
[2021-02-10 04:59] LABS: African American GFR (CKD) 54.6 (60.0-200.0); Albumin 4.6 g/dL (3.8-4.9); Albumin/Globulin Ratio 1.58 (1.60-3.17); Anion Gap 17.6 mmol/L (4.00-12.00); BUN/Creat Ratio 17.22 Ratio (12.00-20.00); Blood Urea Nitrogen 18.6 mg/dL (9.0-27.0); Calcium 9.4 mg/dL (8.7-10.3); Carbon Dioxide 14.6 mmol/L (21.6-31.8); Chol/HDL Ratio 2.91 Ratio; Globulin 2.9 g/dL (1.6-3.3); HDL Cholesterol 36.4 mg/dL (40.00-60.00); Non-African American GFR(CKD) 47.1 (60.0-200.0); Potassium 4.9 mmol/L (3.5-5.5); Total Bilirubin 0.4 mg/dL (0.30-1.20); Total Protein 7.5 g/dL (6.2-8.2)
== END | disposition home or self-care (01) ==
LOC: LABWHC1 09:26
PROVIDERS: ATTEND Internal Medicine Interventional Cardiology
DX: E78.2 Mixed hyperlipidemia (principal)
CPT/HCPCS: 36415; 80053; 80061

== ENCOUNTER → 2021-05-23 | Outpatient (CLI) | payer MEDICARE, OTHER ==
--- NOTE | 2021-05-25 12:13 | MM ---
Reason for exam: follow-up at short interval from prior study. Last mammogram was performed 6 months ago. History: Patient is postmenopausal. Benign US biopsy breast VAD RT of the right breast, November 16, 2020. Benign US biopsy breast add'l VAD RT of the right breast, November 16, 2020. Benign MG stereo VAD BX RT of the right breast, December 16, 2018. Physical Findings: Nurse Summary: 1.5cm hard lump in the left breast at 12 o'clock (nurse TM). MG 3D Diag Mammo W/Cad RT CC, MLO, and LM view(s) were taken of the right breast. Prior study comparison: November 16, 2020, right breast MG diagnostic mammo RT wo CAD. October 20, 2020, bilateral MG 3d diag mammo w/cad [facility]AS. The breast tissue is heterogeneously dense. This may lower the sensitivity of mammography. There is chronic nodularity in the right breast. Benign secretory and oil cyst calcifications. Benign vascular calcifications. Central focal asymmetry at the clips may represent a resolved mild hematoma and can be further evaluated with ultrasound. These results were verbally communicated with the patient and result sheet given to the patient on 05/23/21. ASSESSMENT: Incomplete: need additional imaging evaluation, BI-RAD 0 RECOMMENDATION: Ultrasound of both breasts. (right follow up, left palpable)
--- NOTE | 2021-05-25 12:17 | USB ---
Reason for exam: additional evaluation requested from abnormal screening. History: Patient is postmenopausal. Benign US biopsy breast VAD RT of the right breast, November 16, 2020. Benign US biopsy breast add'l VAD RT of the right breast, November 16, 2020. Benign MG stereo VAD BX RT of the right breast, December 16, 2018. US Breast Limited BILAT Right complete breast ultrasound includes all four quadrants, the retroareolar region and axilla. Finding demonstrates a 0.3 x 0.2 x 0.4cm stable benign oil cyst at 3 o'clock, a 1.2 x 1.0 x 1.0cm lesion at 7 o'clock given the unusual appearance despite the negative biopsy results, 6 month follow up recommended and a 0.4 x 0.2 x 0.5cm lesion at 10 o'clock, 4mm previously, 6 month follow up recommended. Left limited breast ultrasound including focal area of concern, retroareolar and axilla demonstrates a 1.2 x 1.4 x 1.2cm stable debris filled cyst at the 12 o'clock palpable. Right complete breast scanned. Left scanned at 10-12 o'clock. These results were verbally communicated with the patient and result sheet given to the patient on 05/23/21. ASSESSMENT: Probably benign, BI-RAD 3 RECOMMENDATION: Follow-up diagnostic mammogram of both breasts in 6 months. Ultrasound of the right breast in 6 months.
== END | disposition home or self-care (01) ==
LOC: RADMAMWWP 12:48
PROVIDERS: ATTEND Surgery
DX: R92.8 Other abnormal and inconclusive findings on diagnostic imaging of breast (principal); Z78.0 Asymptomatic menopausal state
CPT/HCPCS: 77065; 76642; G0279; 77061

== ENCOUNTER → 2021-06-01 | Outpatient (CLI) | payer MEDICARE ==
[2021-06-01 14:23] VITALS: BP 183/54; PULSE 53; RESP 18; TEMP 97.6
--- NOTE | 2021-06-01 14:59 | P.PN ---
Subjective Progress Note Date: 06/01/21 Principal diagnosis: fibrocystic breast changes abnormal breast ultrasound Romelia is an 85-year-old white female who comes for breast evaluation. She has a history of multiple bilateral breast biopsies all of which have been benign. Of significance is the fact that a daughter of metastatic invasive lobular breast cancer. Romelia underwent a bilateral mammogram on . This was benign BIRADS 2. She additionally underwent a right breast ultrasound which revealed a 1.6 x 1.8 cm irregular area at 7:00 lesion at 7:00 prior measurement 2.5 x 1.7 x 2.7 cm and a complex cystic lesion at 10:00 periareolar. This was felt to be probably benign BIRADS 3 and ultrasound of the right breast area of irregularity at the 7 o'clock position. This was reviewed with Dr. Turcios from radiology who felt that a core biopsy was recommended. Of importance is the fact that on her stereotactic core biopsy of the right breast performed on 12-16-18 she developed a hematoma which was followed conservatively. It appears that the area of concern on her ultrasound was is in proximity to the area of the prior hematoma. She had a right breast core biopsy on 11-16-20 which was benign fibrocystic changes. She had a bilateral mammogram and right breast ultrasound on 05-23-21 and repeat studies were recommended for 6 months. She is not complaining of any new lumps masses or nodules in either breast. There is a persistent area of nodularity in the left breast which has gotten slightly larger as per the patient. This area is consistent with a 1.2 x 1.4 [place] [id number]. She was diagnosed with carcinoid tumor in 2013 found incidentally on a abdominal exploration secondary to recurrent bowel obstructions. At this time she has had a recurrence, she had a bowel obstruction in Jun 2020 and was treated conservatively. She is following at [facility]. She was recommended to have the tumor followed conservatively. She is following with DR. Velázquez. Family History: 1. daughter: metastatic invasive lobular from her left breast, dx. at 63; July 29, 2020 2. paternal aunt: lung cancer 3. brother: leukemia 4. 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 Bland 2. 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 tripple bypass 5. left knee replacement 6. torn meniscus right knee 7. neck surgery (cadaver bone placed) Medical History: 1. diabetes 2. HTN 3. high cholesterol 4. GERD 5. CAD 6. history of carcinoid tumor 7. arthritis Social History: smoke: stopped 20 years ago alcohol: none drugs: none - Constitutional Constitutional: Denies chills, Denies fever - EENT Eyes: denies blurred vision, denies pain Ears: deny: decreased hearing, tinnitus Ears, nose, mouth and throat: Denies headache, Denies sore throat - Breasts Breasts: bilateral: as per HPI - Cardiovascular Comment: CAD Cardiovascular: Reports high blood pressure - Respiratory Respiratory: Denies cough, - Gastrointestinal Comment: carcinoid tumor surgery in past, history of diverticular disease, diverticular disease in remaining colon - Genitourinary (Female) Genitourinary: Denies dysuria, Denies hematuria - Menstruation Menstruation: Reports postmenopausal - Musculoskeletal Comment: arthritis - Integumentary Integumentary: Denies pruritus, Denies rash - Neurological Neurological: Denies numbness, Denies weakness - Psychiatric Psychiatric: Denies anxiety, Denies depression - Endocrine Comment: diabetes 23 years - Hematologic/Lymphatic Comment: none - Allergic/Immunologic Allergic/Immunologic: Reports as per HPI Objective - Vital Signs Vital signs: Vital Signs Temp 97.6 F 06/01/21 14:16 Pulse 53 L 06/01/21 14:16 Resp 18 06/01/21 14:16 BP 183/54 06/01/21 14:16 Pulse Ox 99 06/01/21 14:16 Intake & Output 05/31/21 06/01/21 06/01/21 18:59 06:59 18:59 Weight 58.06 kg - Constitutional General appearance: Present: cooperative - EENT Eyes: Present: EOMI ENT: Present: hearing grossly normal - Neck Neck: Present: normal ROM - Respiratory Respiratory: bilateral: CTA - Cardiovascular Rhythm: regular Heart sounds: normal: S1, S2 - Gastrointestinal General gastrointestinal: Present: soft - Integumentary Integumentary: Present: normal turgor - Musculoskeletal Musculoskeletal: Present: gait normal - Psychiatric Psychiatric: Present: A&O x's 3, appropriate affect, intact judgment & insight - Additional findings Additional findings: Breast Exam: BRA: 34C inspection: Bilateral grade 2 ptosis Palpation: Right breast: Multi-positional exam fibrocystic changes no dominant masses or nodules of concern Right axilla: No adenopathy of concern Left breast: Multiple positional exam no dominant masses or nodules of concern with particular attention to the area of the patient's palpable change near the 12:00 region this appears to be fibrocystic in nature Left axilla: No adenopathy of concern Assessment and Plan Assessment: Impression: Fibrocystic breast changes Cystic lesion left breast 12 o'clock position appears to be stable Plan: Bilateral mammogram and left breast ultrasound in 6 months with physician exam at that time CC: Dr. Block
== END ==
LOC: WWCWWP 13:59
PROVIDERS: ATTEND Surgery
DX: N60.11 Diffuse cystic mastopathy of right breast (principal); N60.02 Solitary cyst of left breast; E11.9 Type 2 diabetes mellitus without complications; I10 Essential (primary) hypertension; I25.10 Atherosclerotic heart disease of native coronary artery without angina pectoris; M19.90 Unspecified osteoarthritis, unspecified site; Z87.891 Personal history of nicotine dependence; Z88.8 Allergy status to other drugs, medicaments and biological substances

== ENCOUNTER → 2021-07-07 | Outpatient (CLI) | payer MEDICARE ==
--- NOTE | 2021-07-07 14:32 | US ---
EXAMINATION TYPE: US venous doppler duplex LE LT DATE OF EXAM: 07/07/2021 2:19 PM COMPARISON: CLINICAL HISTORY: M79.605 PAIN IN LEFT LEG. Left leg pain, no redness, no swelling, GSV harvested for cabg SIDE PERFORMED: Left TECHNIQUE: The lower extremity deep venous system is examined utilizing real time linear array sonog clarke with graded compression, doppler sonography and color-flow sonography. VESSELS IMAGED: Common Femoral Vein Deep Femoral Vein Greater Saphenous Vein * Femoral Vein Popliteal Vein Small Saphenous Vein * Proximal Calf Veins (* superficial vessels) Left Leg: Negative for DVT IMPRESSION: No evidence of DVT at this time.
== END | disposition home or self-care (01) ==
LOC: RADUSWWP 13:48
PROVIDERS: ATTEND Internal Medicine
DX: M79.605 Pain in left leg (principal)

== ENCOUNTER → 2021-10-04 | Outpatient (CLI) | payer MEDICARE ==
[2021-10-04 10:52] LABS: ALT 16 U/L (4-34); AST 27 U/L (14-36); African American GFR (CKD) 61 (>60 ml/min/1.73 sqM); Albumin 4.6 g/dL (3.5-5.0); Albumin/Globulin Ratio 1.5; Alkaline Phosphatase 72 U/L (38-126); Anion Gap 8 mmol/L; Blood Urea Nitrogen 22 mg/dL (7-17); Carbon Dioxide 27 mmol/L (22-30); Chloride 106 mmol/L (98-107); Glucose 64 mg/dL (74-99); Non-African American GFR(CKD) 53 (>60 ml/min/1.73 sqM); Potassium 4.8 mmol/L (3.5-5.1); Sodium 141 mmol/L (137-145); Total Bilirubin 0.4 mg/dL (0.2-1.3); Total Protein 7.6 g/dL (6.3-8.2)
--- NOTE | 2021-10-04 11:51 | US ---
EXAMINATION TYPE: US guide vascular access DATE OF EXAM: 10/04/2021 HISTORY: Needs IV access for contrast enhanced CT, abdominal mass, colon cancer. PROCEDURE: Maximal barrier technique utilized. The skin overlying the basilic vein was localized with ultrasoun d and the vein was noted to be compressible and patent by ultrasound and ultrasound image was obtaine d and submitted on patient's chart. Under direct ultrasound guidance a 20-gauge Angiocath was advanc ed into the right basilic vein and fixed in place. Catheter was aspirated and flushed with sterile s len. Hemostasis achieved. Catheter fixed in place. No immediate complication. IMPRESSION: Ultrasound-guided venipuncture, this procedure performed by the undersigned.
--- NOTE | 2021-10-04 13:56 | CT ---
EXAMINATION TYPE: CT ChestAbdPelvis w con DATE OF EXAM: 10/04/2021 COMPARISON: CT dated 09/09/2020 HISTORY: malignant carcinoid tumor of the small intestine CT DLP: 472.4 mGycm Automated exposure control for dose reduction was used. CONTRAST: CT scan of the chest, abdomen and pelvis is performed with Oral Contrast and with IV Contrast, patien t injected with 100 mL of Isovue 300. FINDINGS: LUNGS: Stable few millimetric middle lobe nodules as well as the right lower lobe pleural-based calci fied granuloma. No new suspicious or progressive lung lesion. Patent trachea and main bronchi. No ple ural effusion. MEDIASTINUM: Cardiomegaly. Arterial atherosclerotic calcification. No pericardial effusion. Slightly more prominent subcarinal lymph node measuring 8mm compared to 6 mm previously. Otherwise no progress siddharth lymphadenopathy in the chest. OTHER: Right breast calcification, slightly progressed. Left breast nodule, stable sternotomy wire s utures. Lower cervical spinal fixation. No aggressive bone lesion. LIVER/GB: Previous cholecystectomy. No definite hepatic focal lesion. PANCREAS: Atrophic SPLEEN: No significant abnormality is seen. ADRENALS: No significant abnormality is seen. KIDNEYS: Right renal cyst. No suspicious renal lesion. BOWEL: Unremarkable nondistended stomach and duodenum. No evidence of bowel obstruction. Fecal loadi ng of the colon with scattered uncomplicated colonic diverticulosis. Nonspecific wall thickening of t he cecum, please correlate with colonoscopy results. REPRODUCTIVE ORGANS: Previous hysterectomy. No gross adnexal mass. LYMPH NODES: Slightly larger inferior mesenteric lesion/lymph node measuring 24 x 27 mm compared to 2 2 x 23 mm previously. No pathologically enlarged abdominal or pelvic lymph nodes otherwise. OSSEOUS STRUCTURES: Anterolisthesis of L4 over L5. Degenerative changes of the lower lumbar spine. No aggressive bone lesion. 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 A stent is seen at the proximal port ion of the superior mesenteric artery, apparently occluded yet patent distally. No sizable ascites. IMPRESSION: 1. Slightly larger subcarinal lymph node, attention on follow-up. 2. Mild interval enlargement of the known inferior mesenteric lesion/lymph node as described above. 3. Nonspecific wall thickening of the cecum, underlying lesion can't be excluded, please correlate wi colonoscopy results. Other interval changes and incidental findings as described above.
[2021-10-04 18:32] LABS: Chol/HDL Ratio 2.51 Ratio; LDL Cholesterol,Calculated 41.1 mg/dL (0.0-131.0); VLDL Calculation 19.66 mg/dL (5.00-40.00)
== END | disposition home or self-care (01) ==
LOC: RADCTMAIN 08:53
PROVIDERS: ATTEND Internal Medicine Hematology & Oncology
DX: C7A.019 Malignant carcinoid tumor of the small intestine, unspecified portion (principal); R59.0 Localized enlarged lymph nodes
CPT/HCPCS: 80061; 80053; 36415; 76937; 71260; 74177; Q9967

== ENCOUNTER 2021-11-28 15:14 | Emergency (ER) | payer MEDICARE ==
[2021-11-28] MEDS ORDERED: SODIUM CHLORIDE 0.9% 1,000 ML IV STA (17:03)
[2021-11-28] MEDS ORDERED: MORPHINE SULFATE 4 MG/ML SYRINGE IV STA (17:03)
--- NOTE | 2021-11-28 17:30 | XR ---
EXAMINATION TYPE: XR KUB DATE OF EXAM: 11/28/2021 COMPARISON: MR scan of the right elbow. History elbow pain. HISTORY: Pain TECHNIQUE: 2 views upright FINDINGS: Heart is enlarged. There is minimal blunting of the costophrenic angles. No evidence of int estinal obstruction or pneumoperitoneum. Fecal pattern is normal. There are clips from cholecystectom y. There is mild thoracolumbar levoscoliosis. No evidence of a mass. IMPRESSION: Cardiomegaly and small pleural effusions. Nonacute abdomen.
--- NOTE | 2021-11-28 17:36 | XR ---
EXAMINATION TYPE: XR chest 2V DATE OF EXAM: 11/28/2021 COMPARISON: 03/22/2018 HISTORY: Epigastric pain TECHNIQUE: FINDINGS: There are sternal wires. Heart size is fairly normal. No pleural effusion. There is some mi nimal pulmonary increased interstitial density. IMPRESSION: There is some mild pulmonary interstitial infiltrate which is new compared to old exam. T his could be mild acute heart failure.
[2021-11-28 18:42] LABS: Basophils % (A) 1 %; Eosinophils # (A) 0.2 k/uL (0-0.7); Eosinophils % (A) 4 %; HCT 35.9 % (34.0-46.0); HGB 10.5 gm/dL (11.4-16.0); Hypochromasia Marked; Lymphocytes # (A) 1.3 k/uL (1.0-4.8); Lymphocytes % (A) 28 %; MCH 23.4 pg (25.0-35.0); MCHC 29.1 g/dL (31.0-37.0); MCV 80.3 fL (80.0-100.0); Mean Platelet Volume 8.9; Monocytes # (A) 0.2 k/uL (0-1.0); Monocytes % (A) 5 %; Neutrophils # (A) 2.7 k/uL (1.3-7.7); Neutrophils % (A) 61 %; Platelet Count 148 k/uL (150-450); RBC 4.47 m/uL (3.80-5.40); RDW 15.8 % (11.5-15.5); WBC 4.5 k/uL (3.8-10.6)
[2021-11-28 18:52] LABS: Albumin 4.8 g/dL (3.5-5.0); Calcium 9.3 mg/dL (8.4-10.2); Total Bilirubin 0.5 mg/dL (0.2-1.3)
[2021-11-28 19:01] LABS: INR 0.9 (<1.2); Partial Thromboplastin Time 20.7 sec (22.0-30.0); Prothrombin Time 10.4 sec (9.0-12.0)
[2021-11-28 19:07] LABS: Potassium 5.5 mmol/L (3.5-5.1)
--- NOTE | 2021-11-28 19:48 | ED ---
Abdominal Pain HPI - General Chief Complaint: Abdominal Pain Stated Complaint: Abd Pain Time Seen by Provider: 11/28/21 16:43 Source: patient, family Mode of arrival: ambulatory Limitations: no limitations - History of Present Illness Initial Comments: Patient is an 85-year-old female with a past medical history significant for coronary artery disease status post CABG, GERD, hyperlipidemia, hypertension, insulin-dependent type 2 diabetes mellitus, and carcinoid tumor who presents to the emergency department with a chief complaint of upper abdominal pain. Patient states the pain has been occurring on and off the past couple weeks with worsening this morning. Patient describes it as a dull pain in her upper middle abdomen. She denies fever, chills, shortness of breath, cough, upper respiratory symptoms, chest pain, nausea, vomiting, diarrhea, and burning with urination. Her son presents at bedside and states the pain is often related to swallowing her pills on an empty stomach. States patient has had decreased appetite lately. Possible history of hiatal hernia. 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 States her oncologist is Dr. Elliott who does not feel that surgical intervention is necessary. She is not on chemotherapy or radiation. Denies alcohol use. MD Complaint: abdominal pain - Related Data Home Medications Medication Instructions Recorded Confirmed ramipriL [Ramipril] 10 mg PO BID 12/05/18 11/28/21 Metoprolol Tartrate [Lopressor] 50 mg PO BID 04/02/20 11/28/21 Omeprazole 40 mg PO DAILY 04/02/20 11/28/21 Empagliflozin [Jardiance] 10 mg PO DAILY 04/04/20 11/28/21 amLODIPine [Norvasc] 10 mg PO DAILY 10/27/20 11/28/21 Aspirin EC [Ecotrin Low Dose] 81 mg PO DAILY 11/28/21 11/28/21 Gabapentin [Neurontin] 100 mg PO BID 11/28/21 11/28/21 Insulin Glargine,Hum.rec.anlog 32 units SQ HS 11/28/21 11/28/21 [Lantus Solostar Pen] Insulin Lispro [humaLOG Kwikpen] 7 unit SQ AC-TID 11/28/21 11/28/21 Rosuvastatin [Crestor] 20 mg PO DAILY 11/28/21 11/28/21 hydrALAZINE HCL [Apresoline] 25 mg PO BID 11/28/21 11/28/21 icosapent ethyL [Icosapent Ethyl] 2 gm PO BID 11/28/21 11/28/21 Allergies Allergy/AdvReac Type Severity Reaction Status Date / Time clopidogrel bisulfate Allergy Rash/Hives Verified 11/28/21 19:53 [From Plavix] prednisone AdvReac Confusion Verified 11/28/21 19:53 zolpidem tartrate AdvReac Confusion, Verified 11/28/21 19:53 [From Ambien] MEMORY LOSS Review of Systems ROS Statement: Those systems with pertinent positive or pertinent negative responses have been documented in the HPI. ROS Other: All systems not noted in ROS Statement are negative. Past Medical History Past Medical History: Coronary Artery Disease (CAD), Cancer, Diabetes Mellitus, GERD/Reflux, Hyperlipidemia, Hypertension, Osteoarthritis (OA) Additional Past Medical History / Comment(s): arthritis; bowel cancer 1999; DJD; chronic back pain; carcinoid tumor ileum 2020 Last Myocardial Infarction Date:: 2004 History of Any Multi-Drug Resistant Organisms: None Reported Past Surgical History: Bowel Resection, Hysterectomy, Joint Replacement, Orthopedic Surgery Additional Past Surgical History / Comment(s): bowel resection took out 10 inches of colon; cabg 3 vessel 2004; bladder suspensions 4-5 of them; L total knee replacement; multiple breast biopsies; Past Anesthesia/Blood Transfusion Reactions: No Reported Reaction Past Psychological History: No Psychological Hx Reported Smoking Status: Former smoker Past Alcohol Use History: None Reported Past Drug Use History: None Reported - Past Family History Brother(s) Family Medical History: Coronary Artery Disease (CAD) Additional Family Medical History / Comment(s): LEUKEMIA Sister(s) Family Medical History: Diabetes Mellitus Daughter(s) Family Medical History: Renal Disease Additional Family Medical History / Comment(s): BREAST CANCER Son(s) Family Medical History: No Reported History Father Family Medical History: Diabetes Mellitus, Vascular Disorder Additional Family Medical History / Comment(s): Father had an amputation of his legs Mother Family Medical History: Myocardial Infarction ([place]) General Exam Limitations: no limitations General appearance: alert, in no apparent distress Head exam: Present: atraumatic, normocephalic, normal inspection Respiratory exam: Present: normal lung sounds bilaterally. Absent: respiratory distress, wheezes, rales, rhonchi, stridor Cardiovascular Exam: Present: regular rate, normal rhythm, normal heart sounds. Absent: systolic murmur, diastolic murmur, rubs, gallop, clicks GI/Abdominal exam: Present: soft, tenderness (epigastric. negative shafer sign ), normal bowel sounds. Absent: distended, guarding, rebound, rigid Extremities exam: Present: pedal edema (1+) Neurological exam: Present: alert, oriented X3, CN II-XII intact Psychiatric exam: Present: normal affect, normal mood Skin exam: Present: warm, dry, intact, normal color. Absent: rash Course Vital Signs 11/28/21 11/28/21 19:35 20:33 Temperature 97.6 F Pulse Rate 61 Blood Pressure 184/77 179/64 O2 Sat by Pulse 93 L Oximetry Medical Decision Making - Medical Decision Making This is an 85-year-old female with an extensive cardiac history and history of GI carcinoid tumor presenting with epigastric pain. Thorough history and examination were performed. Patient is well-appearing. There is mild tenderness in the epigastric region. Denies chest pain and shortness of breath. 1+ bilateral pitting edema is appreciated. EKG shows sinus bradycardia with left ventricular hypertrophy. Ventricular rate at 59. No ST segment or T-wave abnormalities. Laboratory studies significant for microcytic hypochromic anemia. Hemoglobin low at 10.5, consistent with previous visits. Potassium is elevated at 5.5. BNP is elevated at 2440. Troponin is within normal limits. Lipase is within normal limits. Chest x-ray shows cardiomegaly and minimal pulmonary increased interstitial density, which could reflect mild acute heart failure. CT of the abdomen and pelvis shows bilateral pleural effusions and cardiomegaly. Patient given IV Lasix. I reviewed patient's last echocardiogram from August 2016 which showed overall normal left ventricular function with EF at 55-60%. Results discussed with patient. Patient is adamant she does not have chest pain or shortness of breath. At this time there are no diagnostic studies to explain her epigastric pain. This does appear to be a possible new onset heart failure. Patient instructed to follow-up with a primary care provider and tile presser for further evaluation of her results and symptoms. Return parameters discussed. Patient and verbalize understanding and are agreeable to this plan. Dr. Powell is my attending. - Lab Data Result diagrams: 11/28/21 18:32 11/28/21 18:32 Lab Results 11/28/21 11/28/21 11/28/21 Range/Units 18:32 18:32 18:32 WBC 4.5 (3.8-10.6) k/uL RBC 4.47 (3.80-5.40) m/uL Hgb 10.5 L (11.4-16.0) gm/dL Hct 35.9 (34.0-46.0) % MCV 80.3 (80.0-100.0) fL MCH 23.4 L (25.0-35.0) pg MCHC 29.1 L (31.0-37.0) g/dL RDW 15.8 H (11.5-15.5) % Plt Count 148 L (150-450) k/uL MPV 8.9 Neutrophils % 61 % Lymphocytes % 28 % Monocytes % 5 % Eosinophils % 4 % Basophils % 1 % Neutrophils # 2.7 (1.3-7.7) k/uL Lymphocytes # 1.3 (1.0-4.8) k/uL Monocytes # 0.2 (0-1.0) k/uL Eosinophils # 0.2 (0-0.7) k/uL Basophils # 0.0 (0-0.2) k/uL Hypochromasia Marked PT 10.4 (9.0-12.0) sec INR 0.9 (<1.2) APTT 20.7 L (22.0-30.0) sec Sodium 138 (137-145) mmol/L Potassium 5.5 H (3.5-5.1) mmol/L Chloride 107 (98-107) mmol/L Carbon Dioxide 21 L (22-30) mmol/L Anion Gap 10 mmol/L BUN 23 H (7-17) mg/dL Creatinine 0.87 (0.52-1.04) mg/dL Est GFR (CKD-EPI)AfAm 71 (>60 ml/min/1.73 sqM) Est GFR (CKD-EPI)NonAf 62 (>60 ml/min/1.73 sqM) Glucose 107 H (74-99) mg/dL Calcium 9.3 (8.4-10.2) mg/dL Total Bilirubin 0.5 (0.2-1.3) mg/dL AST 45 H (14-36) U/L ALT 20 (4-34) U/L Alkaline Phosphatase 73 (38-126) U/L Troponin I (0.000-0.034) ng/mL NT-Pro-B Natriuret Pep pg/mL Total Protein 8.0 (6.3-8.2) g/dL Albumin 4.8 (3.5-5.0) g/dL Lipase 90 (23-300) U/L 11/28/21 11/28/21 Range/Units 18:32 18:32 WBC (3.8-10.6) k/uL RBC (3.80-5.40) m/uL Hgb (11.4-16.0) gm/dL Hct (34.0-46.0) % MCV (80.0-100.0) fL MCH (25.0-35.0) pg MCHC (31.0-37.0) g/dL RDW (11.5-15.5) % Plt Count (150-450) k/uL MPV Neutrophils % % Lymphocytes % % Monocytes % % Eosinophils % % Basophils % % Neutrophils # (1.3-7.7) k/uL Lymphocytes # (1.0-4.8) k/uL Monocytes # (0-1.0) k/uL Eosinophils # (0-0.7) k/uL Basophils # (0-0.2) k/uL Hypochromasia PT (9.0-12.0) sec INR (<1.2) APTT (22.0-30.0) sec Sodium (137-145) mmol/L Potassium (3.5-5.1) mmol/L Chloride (98-107) mmol/L Carbon Dioxide (22-30) mmol/L Anion Gap mmol/L BUN (7-17) mg/dL Creatinine (0.52-1.04) mg/dL Est GFR (CKD-EPI)AfAm (>60 ml/min/1.73 sqM) Est GFR (CKD-EPI)NonAf (>60 ml/min/1.73 sqM) Glucose (74-99) mg/dL Calcium (8.4-10.2) mg/dL Total Bilirubin (0.2-1.3) mg/dL AST (14-36) U/L ALT (4-34) U/L Alkaline Phosphatase (38-126) U/L Troponin I <0.012 (0.000-0.034) ng/mL NT-Pro-B Natriuret Pep 2440 pg/mL Total Protein (6.3-8.2) g/dL Albumin (3.5-5.0) g/dL Lipase (23-300) U/L - EKG Data EKG Comments: EKG taken at 17:53 Sinus bradycardia, left ventricular hypertrophy, no ST segment or T-wave abnormalities Ventricular rate 59 MN interval 152 QRS duration 92 QTc 428 Disposition Clinical Impression: Elevated brain natriuretic peptide (BNP) level, Epigastric pain, Pleural effusion, bilateral, Cardiomegaly Disposition: HOME SELF-CARE Condition: Good Instructions (If sedation given, give patient instructions): Heart Failure (ER), Acute Abdominal Pain (ED) Additional Instructions: Your BNP was high today. Please follow up with your tile presser and primary care provider in 1-2 days who may prescribe you a diuretic. Return to the emergency department if you experience new, concerning, or worsening symptoms, including but not limited to chest pain, shortness of breath, cough, and swelling of the legs. Is patient prescribed a controlled substance at d/c from ED?: No Referrals: Kenya Block MD [Primary Care Provider] - 1-2 days Time of Disposition: 20:57
--- NOTE | 2021-11-28 20:12 | CT ---
EXAMINATION TYPE: CT abdomen pelvis w con DATE OF EXAM: 11/28/2021 COMPARISON: 10/04/2021 HISTORY: abdominal pain CT DLP: 359.4 mGycm Automated exposure control for dose reduction was used. CONTRAST: Performed with IV Contrast, patient injected with 100 mL of Isovue 300. Images obtained from the diaphragm to the floor the pelvis with the IV contrast. There are bilateral pleural effusions. Heart is enlarged. No pericardial effusion. There is minimal f ibrotic change and atelectasis at the lung bases. There are clips from cholecystectomy. Liver and spleen are intact. Stomach is intact. No pancreatic m ass. There is no adrenal mass. Kidneys of normal size and contour. No hydronephrosis. There is no ret roperitoneal adenopathy. Ureters are not dilated. Abdominal aorta is atheromatous. Appendix not seen. No sign of thickened appendix. There are large bowel diverticula. No diverticulitis. No ascites or f ree air. No sign of a bowel obstruction. There is a rounded 2.4 cm soft tissue mass involving small b owel mesentery and not changed. The bladder distends smoothly. No inguinal hernia. There is previous surgery in the lower anterior ab domen. The lumbar vertebrae have fairly normal alignment. No compression fracture. There is a minimal degene rative first-degree L4-5 spondylolisthesis. The bony pelvis is intact. Hip joints appear intact. IMPRESSION: Bilateral pleural effusions and cardiomegaly. This could be some minimal heart failure. There is 2.4 cm rounded small bowel mesenteric mass unchanged. Colonic diverticulosis without diverticulitis. Appendix not seen. No acute abnormality in the abdomen and pelvis. Pleural effusions are new compared to old exam. No significant change in the abdomen.
[2021-11-28] MEDS ORDERED: FUROSEMIDE 10 MG/ML 2 ML VIAL IV ONE (20:31)
[2021-11-28 20:34] VITALS: BP 179/64; PULSE 61; TEMP 97.6
== END 2021-11-28 21:07 | disposition home or self-care (01) ==
LOC: EC 15:14
DX: I51.7 Cardiomegaly (principal); R79.0 Abnormal level of blood mineral; I25.10 Atherosclerotic heart disease of native coronary artery without angina pectoris; E78.5 Hyperlipidemia, unspecified; E11.9 Type 2 diabetes mellitus without complications; I10 Essential (primary) hypertension; K21.9 Gastro-esophageal reflux disease without esophagitis; Z79.83 Long term (current) use of bisphosphonates; Z79.01 Long term (current) use of anticoagulants; Z82.49 Family history of ischemic heart disease and other diseases of the circulatory system; Z87.891 Personal history of nicotine dependence; Z88.9 Allergy status to unspecified drugs, medicaments and biological substances; Z88.8 Allergy status to other drugs, medicaments and biological substances
CPT/HCPCS: 36415; 93005; 83880; 80053; 83690; 84484; 85025; 85610; 85730; 71046; 74018; 74177; 99284; 96374; 96375; J2270; J1940; Q9967

== ENCOUNTER → 2021-12-04 | Outpatient (CLI) | payer MEDICARE ==
--- NOTE | 2021-12-04 14:23 | MM ---
Reason for Exam: Follow-up at short interval from prior study. Last mammogram was performed 1 year(s) and 1 month(s) ago. Patient History: Menarche at age 12. First Full-Term at age 18. Postmenopausal. 11/16/2020, Benign Core Biopsy on the right side. 11/16/2020, Benign Core Biopsy on the right side. 12/16/2018, Benign Core Biopsy on the right side. Risk Values: Debbie 5 year model risk: 1.7%. NCI Lifetime model risk: 1.9%. Tissue Density: The breast tissue is heterogeneously dense. This may lower the sensitivity of mammography. Findings: Analyzed By CAD. Core markers within the right breast. Adjacent postsurgical distortion appears to be present, stable from comparison. Chronic nodularity is on the left. Extensive vascular calcification is present. There are scattered benign-appearing coarse calcifications. There is a oval spiculated density in the upper middle position right breast measuring approximately 1.3 x 0.4 cm 7 cm from the nipple. This is not as clearly identified on the craniocaudal view. Compression radial lateral oblique and standard mediolateral views were obtained. This area appears to disperse normally. No suspicious calcifications are identified. Overall Assessment: Probably benign, BI-RAD 3 Management: Diagnostic Mammogram of the right breast in 6 months. A clinical breast exam by your physician is recommended on an annual basis and results should be correlated with mammographic findings. This exam should not preclude additional follow-up of suspicious palpable abnormalities. Results were given to the patient verbally at the time of exam. Patient should continue monthly self breast exam. Electronically signed and approved by: Jn Jarrell D.O. Radiologis
== END | disposition home or self-care (01) ==
LOC: RADMAMWWP 13:35
PROVIDERS: ATTEND Surgery
DX: R92.8 Other abnormal and inconclusive findings on diagnostic imaging of breast (principal); Z78.0 Asymptomatic menopausal state
CPT/HCPCS: 77066; G0279; 77062

== ENCOUNTER → 2021-12-07 | Outpatient (CLI) | payer MEDICARE ==
[2021-12-07 13:49] VITALS: BP 173/55; PULSE 72; RESP 17; TEMP 98.9
--- NOTE | 2021-12-07 14:22 | P.PN ---
Subjective Progress Note Date: 12/07/21 Principal diagnosis: Abnormal right breast mammogram fibrocystic breast changes abnormal breast ultrasound Romelia is an 85-year-old white female who comes for breast evaluation. She has a history of multiple bilateral breast biopsies all of which have been benign. Of significance is the fact that a daughter of metastatic invasive lobular breast cancer. Romelia underwent a bilateral mammogram on . This was benign BIRADS 2. She additionally underwent a right breast ultrasound which revealed a 1.6 x 1.8 cm irregular area at 7:00 lesion at 7:00 prior measurement 2.5 x 1.7 x 2.7 cm and a complex cystic lesion at 10:00 periareolar. This was felt to be probably benign BIRADS 3 and ultrasound of the right breast area of irregularity at the 7 o'clock position. This was reviewed with Dr. Turcios from radiology who felt that a core biopsy was recommended. Of importance is the fact that on her stereotactic core biopsy of the right breast performed on 12-16-18 she developed a hematoma which was followed conservatively. It appears that the area of concern on her ultrasound was is in proximity to the area of the prior hematoma. She had a right breast core biopsy on 11-16-20 which was benign fibrocystic changes. She had a bilateral mammogram and right breast ultrasound on 05-23-21 and repeat studies were recommended for 6 months. She is not complaining of any new lumps masses or nodules in either breast. There is a persistent area of nodularity in the left breast which has gotten slightly larger as per the patient. This area is consistent with a 1.2 x 1.4 [place] [id number]. She was diagnosed with carcinoid tumor in 2013 found incidentally on a abdominal exploration secondary to recurrent bowel obstructions. At this time she has had a recurrence, she had a bowel obstruction in Jun 2020 and was treated conservatively. She is following at [facility]. She was recommended to have the tumor followed conservatively. She is following with DR. Velázquez. She noted to have a tumor in the ileum which is spread to lymph nodes in the mesentery. CT recently 12-07-21 The patient had a bilateral mammogram on 12-04-21. This showed an area approximately 1.3 x 0.4 cm of concern in the right breast. Additional views were done and this was not able to be clearly seen. The films were however reviewed with Dr. Adam from radiology and recommendation was for a right breast ultrasound. The patient states she feels some nodularity in both breast in the 12:00 position of the right breast, and in the inferior aspect of the left breast. Not complaining of any nipple discharge or skin changes. A computed tomography scan of the abdomen done on which showed that the lesion in the ileum appeared to be stable. Family History: 1. daughter: metastatic invasive lobular from her left breast, dx. at 63; July 29, 2020 2. paternal aunt: lung cancer 3. brother: leukemia 4. 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 Bland 2. 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 tripple bypass 5. left knee replacement 6. torn meniscus right knee 7. neck surgery (cadaver bone placed) Medical History: 1. diabetes 2. HTN 3. high cholesterol 4. GERD 5. CAD 6. history of carcinoid tumor 7. arthritis Social History: smoke: stopped 20 years ago alcohol: none drugs: none - Constitutional Constitutional: Denies chills, Denies fever - EENT Eyes: denies blurred vision, denies pain Ears: deny: decreased hearing, tinnitus Ears, nose, mouth and throat: Denies headache, Denies sore throat - Breasts Breasts: bilateral: as per HPI - Cardiovascular Comment: CAD Cardiovascular: Reports high blood pressure - Respiratory Respiratory: Denies cough, - Gastrointestinal Comment: carcinoid tumor surgery in past, history of diverticular disease, diverticular disease in remaining colon - Genitourinary (Female) Genitourinary: Denies dysuria, Denies hematuria - Menstruation Menstruation: Reports postmenopausal - Musculoskeletal Comment: arthritis - Integumentary Integumentary: Denies pruritus, Denies rash - Neurological Neurological: Denies numbness, Denies weakness - Psychiatric Psychiatric: Denies anxiety, Denies depression - Endocrine Comment: diabetes 23 years - Hematologic/Lymphatic Comment: none - Allergic/Immunologic Allergic/Immunologic: Reports as per HPI Objective - Vital Signs Vital signs: Vital Signs Temp 98.9 F 12/07/21 13:47 Pulse 72 12/07/21 13:47 Resp 17 12/07/21 13:47 BP 173/55 12/07/21 13:47 Pulse Ox 98 12/07/21 13:47 FiO2 Intake & Output 12/06/21 12/07/21 12/07/21 18:59 06:59 18:59 Weight 58.513 kg - Constitutional General appearance: Present: cooperative - EENT Eyes: Present: EOMI ENT: Present: hearing grossly normal - Neck Neck: Present: normal ROM - Respiratory Respiratory: bilateral: CTA - Cardiovascular Heart sounds: normal: S1, S2 Abnormal Heart Sounds: Present: systolic murmur - Integumentary Integumentary: Present: normal turgor - Musculoskeletal Musculoskeletal: Present: gait normal - Psychiatric Psychiatric: Present: A&O x's 3, appropriate affect, intact judgment & insight - Additional findings Additional findings: Breast examination: BRA: 32C inspection: Bilateral grade 2 ptosis Palpation: Right breast: Multi-positional exam dense breast no discrete definite masses or nodules patient is on able to point out any discrete lumps or masses Right axilla: No adenopathy of concern Left breast: Multi-positional exam dense breast no discrete definite masses or nodules patient again is unable to point out any discrete mass Left axilla: No adenopathy of concern Assessment and Plan Assessment: Impression: 1. diabetes 2. HTN 3. high cholesterol 4. GERD 5. CAD 6. history of carcinoid tumor 7. arthritis 8. Recent bilateral mammogram performed on revealing a questionable area in the right breast, this was reviewed personally with Dr. Adam and recommendation is for a right breast ultrasound Plan: Right breast ultrasound follow-up appointment at that time Mammogram otherwise in 1 year Continued surveillance of carcinoid tumor Recent computed tomography scan does not show progression of the disease CC: Dr. Block
== END | disposition home or self-care (01) ==
LOC: WWCWWP 13:43
PROVIDERS: ATTEND Surgery
DX: Z53.9 Procedure and treatment not carried out, unspecified reason (principal)

== ENCOUNTER → 2022-01-11 | Outpatient (CLI) | payer MEDICARE ==
[2022-01-11 15:23] VITALS: BP 161/51; PULSE 56; RESP 17; TEMP 98.5
--- NOTE | 2022-01-11 15:37 | P.PN ---
Progress Note - Text Progress Note Date: 01/11/22 Romelia had an ultrasound of the right breast on 01-01-22. This was felt to be BIRAD 2. She will have a bilateral mammogram in one year. He was last seen on [id number]. At that time no abnormalities of concern were palpated in either breast. I have discussed with her and her son the results of the ultrasound. With these findings it is felt that she can follow up in 1 year. If she notes any questions or concerns she will follow up sooner. CC: Dr. Block
== END ==
LOC: WWCWWP 15:11
PROVIDERS: ATTEND Surgery
DX: R92.8 Other abnormal and inconclusive findings on diagnostic imaging of breast (principal); Z88.8 Allergy status to other drugs, medicaments and biological substances; Z88.4 Allergy status to anesthetic agent; Z87.891 Personal history of nicotine dependence

== ENCOUNTER → 2022-06-04 | Outpatient (CLI) | payer MEDICARE ==
--- NOTE | 2022-06-04 16:27 | CT ---
EXAMINATION TYPE: CT abdomen pelvis w con CT DLP: 959 mGycm, Automated exposure control for dose reduction was used. DATE OF EXAM: 06/04/2022 4:09 PM COMPARISON: CT abdomen pelvis most recent from 11/28/2021. CLINICAL INDICATION:Female, 86 years old with history of K57.32 DIVERTICULITIS OF LG INT; Stomach aayush n, tumor. Diverticulitis of large intestine. TECHNIQUE: Standard CT of the abdomen and pelvis following the administration of 70 cc of Isovue 30 0 IV contrast material and oral contrast. Coronal and sagittal reformats were performed. FINDINGS: LOWER CHEST: Unremarkable. Resolution of previously demonstrated pleural effusions. ABDOMEN LIVER: A few scattered calcified granulomas. GALLBLADDER AND BILE DUCTS: The gallbladder is surgically absent. No biliary duct dilatation. PANCREAS: Atrophy of the pancreas SPLEEN: Unremarkable. ADRENAL GLANDS: Unremarkable. KIDNEYS AND URETERS: No evidence of hydronephrosis or renal calculus. The kidneys enhance symmetrical ly. PELVIS BLADDER: Incompletely distended but grossly unremarkable. REPRODUCTIVE: The uterus is surgically absent. ABDOMEN & PELVIS STOMACH AND BOWEL: Stomach and duodenum are unremarkable. Mild distal colonic stool burden. Scattered colonic diverticulosis without evidence for acute diverticulitis. No evidence of bowel obstruction. Enteric contrast reaches the ascending colon. The appendix is not visualized however there is no sign ificant inflammatory changes within the right lower quadrant. PERITONEUM: No evidence of pneumoperitoneum or free fluid. Stable 2.5 cm soft tissue mass involving the small bowel mesentery. VASCULATURE: Moderate atherosclerotic calcifications are present throughout the abdominal aorta and i ts branches. No evidence of aortic aneurysm. MUSCULOSKELETAL: No acute osseous abnormalities. Median sternotomy wires. Grade 1 anterolisthesis of L4 on L5 without evidence of pars defects. Mild degenerative disc disease most pronounced at L5-S1. LYMPH NODES: No gross evidence for lymphadenopathy. SOFT TISSUE/ABDOMINAL WALL: Similar ventral abdominal wall fat-containing hernias. IMPRESSION: 1. No acute abdominal/pelvic process. 2. Colonic diverticulosis without evidence for acute diverticulitis. 3. Stable 2.5 cm soft tissue mass within the small bowel mesentery. 4. Resolution of previously demonstrated bilateral pleural effusions.
== END | disposition home or self-care (01) ==
LOC: RADCTMAIN 13:14
PROVIDERS: ATTEND Internal Medicine
DX: K57.32 Diverticulitis of large intestine without perforation or abscess without bleeding (principal); K63.89 Other specified diseases of intestine; J90 Pleural effusion, not elsewhere classified
CPT/HCPCS: 82565; 84520; 74177; 36415; Q9967 ×2

== ENCOUNTER → 2022-09-20 | Outpatient (CLI) | payer MEDICARE ==
--- NOTE | 2022-09-24 15:31 | US ---
EXAMINATION TYPE: US arterial LE multi level DATE OF EXAM: 09/20/2022 3:49 PM CLINICAL INDICATION: Female, 86 years old with history of I73.9 PERIPHERAL VASCULAR DISEASE; History of: Smoker: Previous Hypertension: yes Diabetic: yes Hyperlipidemia: yes TIA/CVA: yes Previous Vascular Surgery: yes CAD: yes ME: yes Vascular Ulcers: no Claudication: yes Gangrene: no Doppler Waveforms: Right: Biphasic Left: Biphasic Ankle-Brachial Indices: Right: 0.72 Left: 0.96 Toe Brachial Indices: Right: 0.71 Left: 0.77 IMPRESSION: 1. Abnormal right AWILDA suggestive of mild to moderate atherosclerotic disease.
== END | disposition home or self-care (01) ==
LOC: RADUSWWP 13:37
PROVIDERS: ATTEND Internal Medicine
DX: I73.9 Peripheral vascular disease, unspecified (principal); E11.51 Type 2 diabetes mellitus with diabetic peripheral angiopathy without gangrene; E78.5 Hyperlipidemia, unspecified; I10 Essential (primary) hypertension
CPT/HCPCS: 93923

== ENCOUNTER → 2022-10-22 | Outpatient (CLI) | payer MEDICARE ==
[2022-10-22 11:00] LABS: African American GFR (CKD) 54 (>60 ml/min/1.73 sqM); Blood Urea Nitrogen 23 mg/dL (7-17); Non-African American GFR(CKD) 47 (>60 ml/min/1.73 sqM)
--- NOTE | 2022-10-23 17:48 | CT ---
EXAMINATION TYPE: CT ChestAbdPelvis w con DATE OF EXAM: 10/22/2022 INDICATION: Colon ca, follow up COMPARISON: 06/04/2022 CT DLP: 532.80 mGycm CONTRAST: Performed with Oral Contrast and with IV Contrast, patient injected with 80 mL of Isovue 300. TECHNIQUE: Axial images at 5 mm thick sections. Reconstructed images in the coronal plane. Delayed images through the kidneys. FINDINGS: CT CHEST: Portion of the thyroid visualized is normal. No suspicious lung nodules or focal infiltrates are present. No enlarged mediastinal or hilar adenopathy is evident. Small axillary lymph nodes are present bilate rally. The ascending aorta diameter at the level of the main pulmonary artery is 3.4 cm. The main pulmonary artery diameter at the bifurcation is 2.[address] ABDOMEN: Liver: Normal Spleen: Normal Pancreas: Pancreas is atrophic. There appears to be dilated pancreatic duct. Focal dilatation or cy st measuring 0.8 cm in the posterior body. Series 3 image 60. Consider additional workup of the pancr eas. Adrenal glands: Bilateral adrenal glands appear within normal limits. Gallbladder: Surgically absent Kidneys: No masses are evident. No hydronephrosis is present. No cysts are present. Aorta: Vascular calcification is within the aorta. Inferior vena cava: Normal. CT PELVIS: Loops of bowel within the abdomen and pelvis are normal. Few scattered diverticuli are present. Th ere are loops of bowel which are incompletely distended or lack oral contrast limiting their evaluati on. No suspicious changes to suggest recurrent colon cancer is identified. Appendix: Not identified. No dilated tubular structure or inflammatory change evident. Urinary bladder: Normal. Genitourinary structures: Uterus and ovaries are not identified. Osseous structures: No suspicious lytic or sclerotic lesions. Degenerative facet changes are in the l ower lumbar spine. IMPRESSIONS: 1. No suspicious changes to suggest recurrent or metastatic colon cancer. 2. Atrophic pancreas with some prominence of the duct. A cystlike area may be within the mid body. Ad ditional workup is recommended pancreas
== END | disposition home or self-care (01) ==
LOC: RADCTMAIN 10:13
PROVIDERS: ATTEND Internal Medicine Hematology & Oncology
DX: Z03.89 Encounter for observation for other suspected diseases and conditions ruled out (principal); C7A.019 Malignant carcinoid tumor of the small intestine, unspecified portion; K86.89 Other specified diseases of pancreas
CPT/HCPCS: 82565; 84520; 71260; 74177; 36415; Q9967

== ENCOUNTER → 2022-12-24 | Outpatient (CLI) | payer MEDICARE ==
[2022-12-24 19:27] LABS: Basophils # (A) 0.04 X 10*3/uL (0.00-0.10); Basophils % (A) 1.3 %; Eosinophils # (A) 0.13 X 10*3/uL (0.04-0.35); Eosinophils % (A) 4.1 %; HGB 10.3 d/dL (12.0-15.0); Lymphocytes # (A) 0.85 X 10*3/uL (0.90-5.00); Lymphocytes % (A) 26.9 %; MCH 26.6 pg (27.0-32.0); MCHC 30.3 d/dL (32.0-37.0); MCV 87.9 FL (80.0-97.0); Monocytes # (A) 0.37 X 10*3/uL (0.20-1.00); Monocytes % (A) 11.7 %; NRBC Per 100 WBC 0 X 10*3/uL (0.00-0.01); Neutrophils # (A) 1.76 X 10*3/uL (1.80-7.70); Neutrophils % (A) 55.7 %; Platelet Count 119 X 10*3/uL (140-440); RBC 3.87 X 10*6/uL (4.10-5.20); RDW 16.3 % (11.5-14.5); WBC 3.16 X 10*3/uL (4.50-10.00)
[2022-12-24 20:02] LABS: ALT 19 U/L (8-44); AST 22 U/L (13-35); Albumin 4.4 d/dL (3.8-4.9); Albumin/Globulin Ratio 1.63 Ratio (1.60-3.17); Alkaline Phosphatase 67 U/L (41-126); Blood Urea Nitrogen 18.1 mg/dL (9.0-27.0); Calcium 9.1 mg/dL (8.7-10.3); Chloride 107 mmol/L (96-109); Chol/HDL Ratio 2.71 Ratio; Globulin 2.7 d/dL (1.6-3.3); Glucose 81 mg/dL (70-110); LDL Cholesterol,Calculated 41.2 mg/dL (0.0-131.0); Potassium 4.5 mmol/L (3.5-5.5); Sodium 141 mmol/L (135-145); Total Bilirubin 0.3 mg/dL (0.3-1.2); Total Protein 7.1 d/dL (6.2-8.2)
== END | disposition home or self-care (01) ==
LOC: LABWHC1 10:11
PROVIDERS: ATTEND Internal Medicine
DX: I10 Essential (primary) hypertension (principal); E11.9 Type 2 diabetes mellitus without complications; E78.2 Mixed hyperlipidemia
CPT/HCPCS: 36415; 80053; 80061; 83036; 84443; 85025

== ENCOUNTER → 2023-02-18 | Outpatient (CLI) | payer MEDICARE ==
[2023-02-18 12:51] LABS: African American GFR (CKD) 64 (>60 ml/min/1.73 sqM); Blood Urea Nitrogen 22 mg/dL (7-17); Non-African American GFR(CKD) 55 (>60 ml/min/1.73 sqM)
--- NOTE | 2023-02-18 14:00 | CT ---
EXAMINATION TYPE: CT ChestAbdPelvis wo con CT DLP: 388.5 mGycm, Automated exposure control for dose reduction was used. DATE OF EXAM: 02/18/2023 1:44 PM COMPARISON: CT chest abdomen pelvis 10/22/2022 CLINICAL INDICATION:Female, 87 years old with history of C7A.019; PHH, h/o colon CA Technique: Multiple axial images of the chest, abdomen, and pelvis were obtained with administration of intravenous contrast. Oral contrast was a special delivery mail carrier. Evaluation is limited due to lack of intraveno us contrast. Two-dimensional coronal and sagittal reconstructions were obtained. Findings: CHEST: LUNGS/ PLEURA: No pleural effusion, pneumothorax, focal consolidation. No suspicious pulmonary nodule or mass. AIRWAY: Patent and unremarkable.. HEART: Size within normal limits. No pericardial effusion. Post CABG changes. MEDIASTINUM: No gross evidence of adenopathy. VASCULATURE: No aortic aneurysm. Atherosclerotic calcification of the aorta and its branches. MUSCULOSKELETAL: No acute osseous abnormalities. Sternotomy wires. No aggressive osseous lesion. Part ial visualization of anterior cervical fusion. SOFT TISSUES/LYMPH NODES: Unremarkable. LOWER NECK: No significant findings. ABDOMEN: ABDOMEN LIVER: Few calcified granulomas. GALLBLADDER AND BILE DUCTS: The gallbladder is surgically absent. PANCREAS: Atrophy redemonstrated. SPLEEN: Unremarkable. ADRENAL GLANDS: Unremarkable. KIDNEYS AND URETERS: No evidence of hydronephrosis or renal calculus. PELVIS BLADDER: Under distended, limiting evaluation. REPRODUCTIVE: The uterus is surgically absent. ABDOMEN & PELVIS STOMACH AND BOWEL: Stomach and duodenum are unremarkable.No focal wall thickening or surrounding infl ammatory changes. Low lying cecum. Distal colonic diverticulosis without evidence for acute diverticu litis. Enteric contrast reaches the splenic flexure. No evidence of bowel obstruction. PERITONEUM: No evidence of pneumoperitoneum or free fluid. VASCULATURE: Moderate atherosclerotic calcifications are present throughout the abdominal aorta and i ts branches. No abdominal aortic aneurysm. MUSCULOSKELETAL: No acute osseous abnormalities. No aggressive osseous lesion. Grade 1 anterolisthesi s of L4 on L5 without pars defects. Mild degenerative disc disease most pronounced at L5-S1. LYMPH NODES: Stable 2.8 cm soft tissue mass within the small bowel mesentery again demonstrated when measuring with similar technique. SOFT TISSUE/ABDOMINAL WALL: Postsurgical of the anterior abdominal wall with incisional small fat paolo led hernias identified. IMPRESSION: 1. Stable 2.8 cm soft tissue mass within the small bowel mesentery. No new pathologic enlarged lymph nodes identified. 2. No evidence for metastatic disease within the chest. 3. Colonic diverticulosis without evidence for acute diverticulitis.
== END | disposition home or self-care (01) ==
LOC: RADCTMAIN 11:29
PROVIDERS: ATTEND Internal Medicine Hematology & Oncology
DX: C7A.019 Malignant carcinoid tumor of the small intestine, unspecified portion (principal); K57.30 Diverticulosis of large intestine without perforation or abscess without bleeding
CPT/HCPCS: 36415; 71250; 74176; 82565; 84520

== ENCOUNTER → 2023-06-24 | Outpatient (CLI) | payer MEDICARE ==
--- NOTE | 2023-06-24 14:48 | XR ---
EXAMINATION TYPE: XR knee complete RT, XR femur RT, XR Hip Complete RT DATE OF EXAM: 06/24/2023 1:38 PM CLINICAL INDICATION:Female, 87 years old with history of M25.561 PAIN IN RIGHT KNEE; PHH COMPARISON: None. TECHNIQUE: XR knee complete RT, XR femur RT, XR Hip Complete RT; the hip was evaluated in frontal lat eral views. The knee was evaluated in frontal lateral and oblique views. The femur was evaluated in f rontal and lateral views. FINDINGS: Mild osteophyte formation of the superior acetabulum. Mild hip joint space narrowing. The needle history is osteophyte formation of patella, tibial plateau and femoral condyles. There is mildly joint space narrowing. Atherosclerosis of the arterial vasculature. IMPRESSION: 1. No acute osseous pathology. 2. Mild tricompartmental osteoarthritic changes of the knee and mild to moderate right hip osteoarthr osis.
== END | disposition home or self-care (01) ==
LOC: RADXRMAIN 13:09
PROVIDERS: ATTEND Internal Medicine
DX: M17.11 Unilateral primary osteoarthritis, right knee (principal); M16.11 Unilateral primary osteoarthritis, right hip; M25.561 Pain in right knee
CPT/HCPCS: 73502

== ENCOUNTER → 2023-08-01 | Outpatient (CLI) | payer MEDICARE ==
--- NOTE | 2023-08-02 00:18 | US ---
EXAMINATION TYPE: US venous doppler duplex LE DATE OF EXAM: 08/01/2023 3:02 PM COMPARISON: NONE CLINICAL INDICATION: Female, 87 years old with history of M79.89 OTHER SPECIFIED SOFT TISSUE DISORDER S; left calf swelling SIDE PERFORMED: Bilateral TECHNIQUE: The lower extremity deep venous system is examined utilizing real time linear array sonog clarke with graded compression, doppler sonography and color-flow sonography. VESSELS IMAGED: Common Femoral Vein Deep Femoral Vein Greater Saphenous Vein * Femoral Vein Popliteal Vein Small Saphenous Vein * Proximal Calf Veins (* superficial vessels) Right Leg: Negative for DVT Left Leg: Negative for DVT exam limited by patient cooperation IMPRESSION: Grayscale, color doppler, spectral doppler imaging performed of the deep veins of the lo wer extremities. There is normal flow, compressibility, vascular waveforms.
== END | disposition home or self-care (01) ==
LOC: RADUSWWP 15:00
PROVIDERS: ATTEND Internal Medicine
DX: M79.89 Other specified soft tissue disorders (principal)
CPT/HCPCS: 93970

== ENCOUNTER 2023-08-16 10:52 | Inpatient (IN) | payer MEDICARE ==
--- NOTE | 2023-08-16 11:21 | ED ---
Weakness HPI - General Chief complaint: Weakness Stated complaint: Failure to Thrive Time Seen by Provider: 08/16/23 11:01 Source: patient, family, RN notes reviewed Mode of arrival: EMS Limitations: no limitations - History of Present Illness Initial comments: This is an 87 year old female who presents to the emergency department for weakness and failure to thrive. Patient's family states that over the last 1 to 2 weeks she has had increasing swelling to both of her extremities and has also been very weak. She has barely been able to get off the toilet or get up and move around. She is also been refusing to eat and her family is concerned that she is continuing to decline. Her family is also trying to care for her who is also older and unwell, and they state that this is becoming increasingly difficult for them and they would like to have her placed in rehab for further care. Patient states that her legs are painful. Reports a history of CHF. Denies any chest pain or shortness of breath. - Related Data Home Medications Medication Instructions Recorded Confirmed ramipriL [Ramipril] 10 mg PO BID 12/05/18 08/16/23 Metoprolol Tartrate [Lopressor] 50 mg PO BID 04/02/20 08/16/23 Omeprazole 40 mg PO DAILY 04/02/20 08/16/23 Empagliflozin [Jardiance] 10 mg PO DAILY 04/04/20 08/16/23 Aspirin EC [Ecotrin Low Dose] 81 mg PO DAILY 11/28/21 08/16/23 Gabapentin [Neurontin] 100 mg PO BID 11/28/21 08/16/23 Insulin Glargine,Hum.rec.anlog 18 units SQ 11/28/21 08/16/23 [Lantus Solostar Pen] Insulin Lispro [humaLOG Kwikpen] See Protocol SQ AC-TID 11/28/21 08/16/23 Rosuvastatin [Crestor] 20 mg PO HS 11/28/21 08/16/23 icosapent ethyL [Icosapent Ethyl] 2 gm PO BID 11/28/21 08/16/23 HYDROcodone/APAP 5-325MG [[place] 0.5 tab PO BID 08/16/23 08/16/23 5-325] Isosorbide Mononitrate ER [Imdur] 30 mg PO DAILY 08/16/23 08/16/23 Multivitamins, Thera [Multivitamin 1 tab PO HS 08/16/23 08/16/23 (formulary)] amLODIPine [Norvasc] 5 mg PO DAILY 08/16/23 08/16/23 hydrALAZINE HCL [Apresoline] 50 mg PO BID 08/16/23 08/16/23 Allergies Allergy/AdvReac Type Severity Reaction Status Date / Time clopidogrel bisulfate Allergy Rash/Hives Verified 08/16/23 16:06 [From Plavix] prednisone AdvReac Confusion Verified 08/16/23 16:06 zolpidem tartrate AdvReac Confusion, Verified 08/16/23 16:06 [From Ambien] MEMORY LOSS Review of Systems ROS Statement: Those systems with pertinent positive or pertinent negative responses have been documented in the HPI. ROS Other: All systems not noted in ROS Statement are negative. Past Medical History Past Medical History: Coronary Artery Disease (CAD), Cancer, Diabetes Mellitus, GERD/Reflux, Hyperlipidemia, Hypertension, Osteoarthritis (OA) Additional Past Medical History / Comment(s): arthritis; bowel cancer 1999; DJD; chronic back pain; carcinoid tumor ileum 2020 Last Myocardial Infarction Date:: 2004 History of Any Multi-Drug Resistant Organisms: None Reported Past Surgical History: Bowel Resection, Hysterectomy, Joint Replacement, Orthopedic Surgery Additional Past Surgical History / Comment(s): bowel resection took out 10 inches of colon; cabg 3 vessel 2004; bladder suspensions 4-5 of them; L total knee replacement; multiple breast biopsies; Past Anesthesia/Blood Transfusion Reactions: No Reported Reaction Past Psychological History: No Psychological Hx Reported Smoking Status: Former smoker Past Alcohol Use History: None Reported Past Drug Use History: None Reported - Past Family History Brother(s) Family Medical History: Coronary Artery Disease (CAD) Additional Family Medical History / Comment(s): LEUKEMIA Sister(s) Family Medical History: Diabetes Mellitus Daughter(s) Family Medical History: Renal Disease Additional Family Medical History / Comment(s): BREAST CANCER Son(s) Family Medical History: No Reported History Father Family Medical History: Diabetes Mellitus, Vascular Disorder Additional Family Medical History / Comment(s): Father had an amputation of his legs Mother Family Medical History: Myocardial Infarction (MT) General Exam Limitations: no limitations General appearance: alert, in no apparent distress Head exam: Present: atraumatic, normocephalic, normal inspection Respiratory exam: Present: normal lung sounds bilaterally. Absent: respiratory distress, wheezes, rales, rhonchi, stridor Cardiovascular Exam: Present: regular rate, normal rhythm, normal heart sounds. Absent: systolic murmur, diastolic murmur, rubs, gallop, clicks GI/Abdominal exam: Present: soft, normal bowel sounds. Absent: distended, tenderness, guarding, rebound, rigid Extremities exam: Present: other (Pitting edema to the bilateral lower extremities with overlying tenderness. No erythema.) Neurological exam: Present: alert, oriented X3, CN II-XII intact Psychiatric exam: Present: normal affect, normal mood Course Vital Signs 08/16/23 08/16/23 08/16/23 10:53 12:15 13:36 Temperature 98.9 F Pulse Rate 62 56 L 57 L Respiratory 18 18 18 Rate Blood Pressure 174/55 147/65 151/53 O2 Sat by Pulse 96 97 98 Oximetry 08/16/23 08/16/23 08/16/23 15:46 16:03 16:30 Temperature Pulse Rate 68 65 64 Respiratory 18 18 18 Rate Blood Pressure 195/87 204/65 185/59 O2 Sat by Pulse 97 98 97 Oximetry Medical Decision Making - Medical Decision Making This is an 87 year old female who presents to the emergency department for weakness and failure to thrive. Was pt. sent in by a medical professional or institution? @ -No Did you speak to anyone other than the patient for history? @ -Her daughter provided the majority of the information. Did you review nursing and triage notes? @ -Yes, and I agree, it is accurate with regards to the patient's symptoms. Were old charts reviewed? @ -No Differential Diagnosis? @ -Differential Weakness: Hypoglycemia, shock, sepsis, hyponatremia, anemia, infection, MT, ETOH, adverse medicine reaction, overdose, stroke, this is not meant to be an all-inclusive list. EKG interpreted by me (3pts min.)? @ -EKG interpreted by me demonstrating the following: Sinus rhythm. Ventricular rate 60 bpm, NM interval 172 ms, QRS duration 85 ms, QTc 433 ms. X-rays interpreted by me (1pt min.)? @ -Chest x-ray obtained. My interpretation identifies pulmonary vascular congestion. CT interpreted by me (1pt min.)? @ -Not obtained U/S interpreted by me (1pt. min.)? @ -Duplex ultrasound of the bilateral lower extremities obtained. My interpretation identifies no evidence of a DVT. What testing was considered but not performed? (CT, X-rays, U/S, labs)? Why? @ -None What meds were considered but not given? Why? @ -None Did you discuss the management of the patient with other professionals? @ -Yes, Dr. Block, who accepts the patient for admission to medicine. Did you reconcile home meds? @ -No Was smoking cessation discussed for >3mins.? @ -No Was critical care preformed (if so, how long)? @ -No Were there social determinants of health that impacted care today? How? (Homelessness, low income, unemployed, alcoholism, drug addiction, transportation, low edu. Level, literacy, decrease access to med. care, skilled nursing, rehab)? @ -No Was there de-escalation of care discussed even if they declined? (Discuss DNR or withdrawal of care, Hospice)? @ -No What co-morbidities impacted this encounter? (DM, HTN, Smoking, COPD, CAD, Cancer, CVA, Hep., AIDS, mental health diagnosis, sleep apnea, morbid obesity)? @ -CAD, CHF, DM, HLD, HTN Was patient admitted / discharged? @ -Admitted. Lab work demonstrates leukopenia with a white blood cell count of 2.1, hemoglobin of 7.1, and platelets of 78,000 suggestive of pancytopenia. Given the low hemoglobin, stool occult was also obtained which was negative. Urinalysis negative for signs of infection. COVID, influenza, and RSV testing are negative. BNP is elevated at 16,100. Chest x-ray demonstrates pulmonary vascular congestion with small pleural effusions. Given the notable tenderness in her lower extremities we did also obtain a duplex ultrasound which was negative for any signs of a DVT. 40 mg of IV Lasix administered for CHF exacerbation. Patient admitted to medicine for pancytopenia, CHF exacerbation, and failure to thrive. Consult placed for hematology/oncology and cardiology. Undiagnosed new problem with uncertain prognosis? @ -None Drug Therapy requiring intensive monitoring for toxicity (Heparin, Nitro, Insulin, Cardizem)? @ -None Were any procedures done? @ -None Diagnosis/symptom? @ -Pancytopenia, failure to thrive Acute, or Chronic, or Acute on Chronic? @ -Acute Uncomplicated (without systemic symptoms) or Complicated (systemic symptoms)? @ -Complicated Side effects of treatment? @ -None Exacerbation, Progression, or Severe Exacerbation] @ -Not applicable Poses a threat to life or bodily function? @ -Yes Diagnosis/symptom? @ -CHF exacerbation Acute, or Chronic, or Acute on Chronic? @ -Acute on chronic Uncomplicated (without systemic symptoms) or Complicated (systemic symptoms)? @ -Uncomplicated Side effects of treatment? @ -None Exacerbation, Progression, or Severe Exacerbation] @ -Exacerbation Poses a threat to life or bodily function? @ -Yes This case was discussed in detail with the attending ED physician, Dr. Corado. Presentation, findings, and treatment plan discussed in detail as well. - Lab Data Result diagrams: 08/16/23 11:51 08/16/23 16:30 Lab Results 08/16/23 08/16/23 08/16/23 Range/Units 11:51 11:51 11:51 WBC 2.1 L (3.8-10.6) k/uL RBC 2.39 L (3.80-5.40) m/uL Hgb 7.1 L (11.4-16.0) gm/dL Hct 22.4 L (34.0-46.0) % MCV 93.7 (80.0-100.0) fL MCH 29.7 (25.0-35.0) pg MCHC 31.7 (31.0-37.0) g/dL RDW 15.8 H (11.5-15.5) % Plt Count 78 L (150-450) k/uL MPV 10.7 Neutrophils % Not Reportable Neutrophils % (Manual) 58 % Band Neuts % (Manual) 3 % Lymphocytes % Not Reportable Lymphocytes % (Manual) 26 % Monocytes % Not Reportable Monocytes % (Manual) 5 % Eosinophils % Not Reportable Eosinophils % (Manual) 7 % Basophils % Not Reportable Metamyelocytes % 1 % Neutrophils # Not Reportable Neutrophils # (Manual) 1.20 L (1.3-7.7) k/uL Lymphocytes # Not Reportable Lymphocytes # (Manual) 0.55 L (1.0-4.8) k/uL Monocytes # Not Reportable Monocytes # (Manual) 0.11 (0-1.0) k/uL Eosinophils # Not Reportable Eosinophils # (Manual) 0.15 (0-0.7) k/uL Basophils # Not Reportable Metamyelocytes # (Man) 0.02 H (0) k/uL Nucleated RBCs 0 (0-0) /100 WBC Manual Slide Review Performed PT 12.2 (10.0-12.5) sec INR 1.1 (<1.2) APTT 23.5 (22.0-30.0) sec Sodium 137 (137-145) mmol/L Potassium 4.2 (3.5-5.1) mmol/L Chloride 108 H (98-107) mmol/L Carbon Dioxide 24 (22-30) mmol/L Anion Gap 5 mmol/L BUN 23 H (7-17) mg/dL Creatinine 0.92 (0.52-1.04) mg/dL Est GFR (CKD-EPI)AfAm 65 (>60 ml/min/1.73 sqM) Est GFR (CKD-EPI)NonAf 57 (>60 ml/min/1.73 sqM) Glucose 108 H (74-99) mg/dL Plasma Lactic Acid [place] (0.7-2.0) mmol/L Calcium 8.7 (8.4-10.2) mg/dL Magnesium 1.5 L (1.6-2.3) mg/dL Total Bilirubin 0.6 (0.2-1.3) mg/dL AST 34 (14-36) U/L ALT 20 (4-34) U/L Alkaline Phosphatase 84 (38-126) U/L Creatine Kinase 70 (30-135) U/L NT-Pro-B Natriuret Pep 81861 pg/mL Total Protein 6.4 (6.3-8.2) g/dL Albumin 3.3 L (3.5-5.0) g/dL Urine Color Urine Appearance (Clear) Urine pH (5.0-8.0) Ur Specific [place] (1.001-1.035) Urine Protein (Negative) Urine Glucose (UA) (Negative) Urine Ketones (Negative) Urine Blood (Negative) Urine Nitrite (Negative) Urine Bilirubin (Negative) Urine Urobilinogen (<2.0) mg/dL Ur Leukocyte Esterase (Negative) Urine RBC (0-5) /hpf Urine WBC (0-5) /hpf Ur Squamous Epith Cells (0-4) /hpf Urine Bacteria (None) /hpf Urine Mucus (None) /hpf Stool Occult Blood (Negative) 08/16/23 08/16/23 08/16/23 Range/Units 11:51 12:40 13:58 WBC (3.8-10.6) k/uL RBC (3.80-5.40) m/uL Hgb (11.4-16.0) gm/dL Hct (34.0-46.0) % MCV (80.0-100.0) fL MCH (25.0-35.0) pg MCHC (31.0-37.0) g/dL RDW (11.5-15.5) % Plt Count (150-450) k/uL MPV Neutrophils % Neutrophils % (Manual) % Band Neuts % (Manual) % Lymphocytes % Lymphocytes % (Manual) % Monocytes % Monocytes % (Manual) % Eosinophils % Eosinophils % (Manual) % Basophils % Metamyelocytes % % Neutrophils # Neutrophils # (Manual) (1.3-7.7) k/uL Lymphocytes # Lymphocytes # (Manual) (1.0-4.8) k/uL Monocytes # Monocytes # (Manual) (0-1.0) k/uL Eosinophils # Eosinophils # (Manual) (0-0.7) k/uL Basophils # Metamyelocytes # (Man) (0) k/uL Nucleated RBCs (0-0) /100 WBC Manual Slide Review PT (10.0-12.5) sec INR (<1.2) APTT (22.0-30.0) sec Sodium (137-145) mmol/L Potassium (3.5-5.1) mmol/L Chloride (98-107) mmol/L Carbon Dioxide (22-30) mmol/L Anion Gap mmol/L BUN (7-17) mg/dL Creatinine (0.52-1.04) mg/dL Est GFR (CKD-EPI)AfAm (>60 ml/min/1.73 sqM) Est GFR (CKD-EPI)NonAf (>60 ml/min/1.73 sqM) Glucose (74-99) mg/dL Plasma Lactic Acid [place] 0.9 (0.7-2.0) mmol/L Calcium (8.4-10.2) mg/dL Magnesium (1.6-2.3) mg/dL Total Bilirubin (0.2-1.3) mg/dL AST (14-36) U/L ALT (4-34) U/L Alkaline Phosphatase (38-126) U/L Creatine Kinase (30-135) U/L NT-Pro-B Natriuret Pep pg/mL Total Protein (6.3-8.2) g/dL Albumin (3.5-5.0) g/dL Urine Color Yellow Urine Appearance Clear (Clear) Urine pH 5.5 (5.0-8.0) Ur Specific [place] 1.020 (1.001-1.035) Urine Protein 1+ H (Negative) Urine Glucose (UA) 4+ H (Negative) Urine Ketones Negative (Negative) Urine Blood Negative (Negative) Urine Nitrite Negative (Negative) Urine Bilirubin Negative (Negative) Urine Urobilinogen <2.0 (<2.0) mg/dL Ur Leukocyte Esterase Negative (Negative) Urine RBC 1 (0-5) /hpf Urine WBC 4 (0-5) /hpf Ur Squamous Epith Cells <1 (0-4) /hpf Urine Bacteria Rare H (None) /hpf Urine Mucus Rare H (None) /hpf Stool Occult Blood Negative (Negative) - Radiology Data Radiology results: report reviewed, image reviewed Disposition Clinical Impression: Pancytopenia, CHF exacerbation, Failure to thrive Disposition: ADMITTED IP TO THIS HOSP
[2023-08-16 12:17] LABS: HCT 22.4 % (34.0-46.0); HGB 7.1 gm/dL (11.4-16.0); MCH 29.7 pg (25.0-35.0); MCHC 31.7 g/dL (31.0-37.0); MCV 93.7 fL (80.0-100.0); Mean Platelet Volume 10.7; RBC 2.39 m/uL (3.80-5.40); RDW 15.8 % (11.5-15.5); WBC 2.1 k/uL (3.8-10.6)
--- NOTE | 2023-08-16 12:17 | XR ---
EXAMINATION TYPE: XR chest 2V DATE OF EXAM: 08/16/2023 COMPARISON: 11/28/2021 HISTORY: Shortness of breath TECHNIQUE: Frontal and lateral views of the chest are obtained. FINDINGS: Scattered senescent parenchymal changes noted. Hyperinflation compatible with COPD. No evidence for infiltrate. No evidence for atelectasis. Cardiomegaly with small pleural effusions and pulmonary venous congestion compatible with borderline to very mild congestive failure. Correlate clinically. Mediastinal structures are stable and grossly unremarkable. No evidence for hilar prominence. Degenerative changes dorsal spine. IMPRESSION: 1. Cardiomegaly with small pleural effusions and pulmonary venous congestion compatible with borderli ne to very mild congestive failure. Correlate clinically.
[2023-08-16 12:21] LABS: ALT 20 U/L (4-34); AST 34 U/L (14-36); African American GFR (CKD) 65 (>60 ml/min/1.73 sqM); Albumin 3.3 g/dL (3.5-5.0); Alkaline Phosphatase 84 U/L (38-126); Anion Gap 5 mmol/L; Blood Urea Nitrogen 23 mg/dL (7-17); Calcium 8.7 mg/dL (8.4-10.2); Carbon Dioxide 24 mmol/L (22-30); Chloride 108 mmol/L (98-107); Creatine Kinase 70 U/L (30-135); Glucose 108 mg/dL (74-99); Magnesium 1.5 mg/dL (1.6-2.3); Non-African American GFR(CKD) 57 (>60 ml/min/1.73 sqM); Potassium 4.2 mmol/L (3.5-5.1); Sodium 137 mmol/L (137-145); Total Bilirubin 0.6 mg/dL (0.2-1.3); Total Protein 6.4 g/dL (6.3-8.2)
[2023-08-16 12:24] LABS: INR 1.1 (<1.2); Partial Thromboplastin Time 23.5 sec (22.0-30.0); Prothrombin Time 12.2 sec (10.0-12.5)
[2023-08-16 12:29] LABS: NT-Pro-B-Type Natriuretic Pept 16100 pg/mL
[2023-08-16 12:39] LABS: Platelet Count 78 k/uL (150-450)
[2023-08-16 13:07] LABS: Appearance,Urine Clear (Clear); Bacteria,Urine Rare /hpf; Bilirubin,Urine Negative (Negative); Blood,Urine Negative (Negative); Color,Urine Yellow; Glucose,Urine (UA) 4+ (Negative); Ketones,Urine Negative (Negative); Leukocyte Esterase,Urine Negative (Negative); Mucus,Urine Rare /hpf; Nitrite,Urine Negative (Negative); PH, Urine 5.5 (5.0-8.0); Protein,Urine 1+ (Negative); RBC,Urine 1 /hpf (0-5); Squamous Epithelial Cell,Urine <1 /hpf (0-4); Urobilinogen,Urine <2.0 mg/dL (<2.0); WBC,Urine 4 /hpf (0-5)
--- NOTE | 2023-08-16 13:11 | US ---
EXAMINATION TYPE: US venous doppler duplex LE DATE OF EXAM: 08/16/2023 11:10 AM COMPARISON: NONE CLINICAL INDICATION: Female, 87 years old with history of Pain and swelling; SIDE PERFORMED: Bilateral TECHNIQUE: The lower extremity deep venous system is examined utilizing real time linear array sonog clarke with graded compression, doppler sonography and color-flow sonography. VESSELS IMAGED: Common Femoral Vein Deep Femoral Vein Greater Saphenous Vein * Femoral Vein Popliteal Vein Small Saphenous Vein * Proximal Calf Veins (* superficial vessels) Right Leg: Negative for DVT Left Leg: Negative for DVT; left GSV surgically absent IMPRESSION: Grayscale, color doppler, spectral doppler imaging performed of the deep veins of the lo wer extremities. There is normal flow, compressibility, vascular waveforms.
[2023-08-16] MEDS: MAGNESIUM OXIDE 400 MG TAB PO STA (13:37)
[2023-08-16] MEDS: FUROSEMIDE 10 MG/ML 4 ML VIAL IV STA (13:37)
[2023-08-16 13:49] LABS: Band Neutrophils % 3 %; Eosinophils # (M) 0.15 k/uL (0-0.7); Lymphocytes # (M) 0.55 k/uL (1.0-4.8); Metamyelocytes # (M) 0.02 k/uL (0); Metamyelocytes % 1 %; Monocytes # (M) 0.11 k/uL (0-1.0); Neutrophils % (M) 58 %; Nucleated Red Blood Cells 0 /100 WBC (0-0); Total Cells Counted 100
[2023-08-16] MEDS ORDERED: NALOXONE 0.4 MG/ML 1 ML VIAL IV PRN (15:00)
--- NOTE | 2023-08-16 15:28 | P.HPIM ---
History of Present Illness H&P Date: 08/16/23 Chief Complaint: Weakness pancytopenia acute diastolic heart failure HISTORY OF PRESENT ILLNESS: This is an 87-year-old female with a previous medical history signi ficant for coronary artery disease status post CABG times 07/2004, hypertension and hypertensive cardiovascular disease, hyperlipidemia, diabetes mellitus type 2 with diabetic polyneuropathy, history of carcinoid tumor status post partial colectomy history of vascular dementia without behavioral disturbances, patient was seen in the office last back in July about a month ago with increased swelling in both lower extremities and significant weight loss, patient has been following with hematology oncology on a regular basis, due to her carcinoid tumor, patient apparently presented to my office on July 22, 2023 with increased swelling in both lower extremities she was sent to the ER for evalua tion by venous Doppler that was negative for deep venous thrombosis, she was placed on diuretics, and the patient's health has been declining over the last few month, she is forgetting to take her insulin, she lives with her son who is the primary caregiver for her, but he has to run out to do some errands, patient has not been eating much today she was extremely weak and she could not do anything on her own, with increased swelling both lower extremities she appears pale, she was seen in the emergency department at [facility], she was found to have pancytopenia with a low white cells and her hemoglobin was 7.1 and the platelet count was 75,000, this is a new for the patient, patient also had a chest x-ray that showed bilateral pleural effusions with pulmonary vascular congestion suggestive of acute diastolic heart failure, patient was started on IV diuretics in the form of Lasix 40 mg IV push every 12 hours, and cardiology consultation was obtained from the patient as well as hematology oncology consultation due to her pancytopenia, patient also has been extremely weak with recurrent falls, she will be seen and evaluated by physical therapy and Occupational Therapy for possible subacute rehabilitation. Patient is DO NOT RESUSCITATE at this time. REVIEW OF SYSTEMS: Constitutional: No documented fever, no chills, no night sweats. No weight change. No weakness, fatigue or lethargy. No daytime sleepiness. EENT: No headache. No blurred vision or double vision, no loss of vision. No loss of Hearing, no ringing in the ears, no dizziness. No nasal drainage or congestion. No epistaxis. No sore throat. Lungs: No shortness of breath, no cough, no sputum production. No wheezing. Reports dyspnea with activity. Cardiovascular: No chest pain, no lower extremity edema. No palpitations. No paroxysmal nocturnal dyspnea. No orthopnea. No lightheadedness or dizziness. No syncopal episodes. Abdominal: Reports abdominal pain. No nausea, vomiting. No diarrhea. No constipation. No bloody or tarry stools reports loss of appetite. Genitourinary: No dysuria, increased frequency, urgency. No urinary retention. Musculoskeletal: No myalgias. No muscle weakness, no gait dysfunction, no frequent falls. No back pain. No neck pain. Integumentary: No wounds, no lesions. No rash or pruritus. No unusual bruising. No change in hair or nails. Neurologic: No aphasia. No facial droop. No change in mentation. No head injury. No headache. No paralysis. No paresthesia. Psychiatric: No depression. No anxiety. No mood swings. Endocrine: No abnormal blood sugars. No weight change. PAST MEDICAL HISTORY: Coronary artery disease status post CABG x3 2005 Hypertension and hypertensive cardiovascular disease Mixed hyperlipidemia Diabetes mellitus type 2 with diabetic polyneuropathy. Carcinoid tumor. Osteoarthritis. Vascular dementia without behavioral disturbances. PAST SURGICAL HISTORY: CABG x3 2005 Partial colectomy due to carcinoid tumor Bladder suspension surgery Left total knee arthroplasty SOCIAL HISTORY: Patient is a lifelong non-smoker, she denies any alcohol ingestion, she denies any drug use or abuse, she drinks about 1 cup of coffee on a daily basis. FAMILY HISTORY: Father at the age of 79 from diabetes mellitus type 2 and PAD ended up with bilateral leg amputations he also had a history of hypertension and hyperlipidemia along with diabetes mellitus type 2 mother at the age of 80 from MD patient has 3 sons alive and well and 2 daughters alive and well. Patient also had 6 brothers and 5 sisters All her siblings were . PHYSICAL EXAMINATION: General: 87-year-old female laying down in bed in apparent respiratory distress she appears pale and weak HEENT: Head is atraumatic, normocephalic, pupils were equal round reactive to light and recommendation, extraocular muscle movement were intact, sclera nonicteric, conjunctivae were pale, mucous membranes of the mouth are somewhat dry. Neck: Supple, no JVP, normal carotid upstroke bilaterally, no lymphadenopathy. Chest: Decreased breath sounds at the bases, few rhonchi, no expiratory wheezes, no chest wall tenderness, no intercostal retractions. Heart: First heart sound is normal, second heart sounds normal there is systolic ejection murmur 2/6 located in the left sternal border. Abdomen: Soft, mild tenderness to the right lower quadrant no rebound or guarding positive bowel sounds. Extremities: there is +2 edema, no calf tenderness, dorsalis pedis +1 bilaterally. Neurologic examination: Patient is awake alert and oriented x3 cranial nerves II-12 appear grossly intact, muscle power were 4 out of 5 in upper extremities and 2 out of 5 in bilateral lower extremities, deep tendon reflexes normal bilaterally. ASSESSMENT AND PLAN: 1. Acute on chronic diastolic heart failure. Start the patient on Lasix 40 mg IV push every 12 hours, continue patient on metoprolol 50 mg orally twice every day, continue patient on ramipril 10 mg orally twice every day as well, restart the patient Jardiance 10 mg once every day, monitor input and output and daily weight, echocardiogram will be done to evaluation of LV function cardiology consultation will be obtained. 2. Pancytopenia. Check the patient iron level TIBC ferritin level, B12 and folate level check the patient reticulocyte count, check serum protein electrophoresis, as well as kappa and lambda light chain in the serum, we will check LDH, type and cross and transfuse 1 unit of packed red blood cells. 3. Coronary artery disease status post coronary artery bypass graft. Continue patient on metoprolol 50 mg orally twice every day, continue patient on ramipril 10 mg orally twice every day, aspirin 81 mg once every day, continue rosuvastatin 20 mg orally once every day, continue patient on isosorbide mononitrate 30 mg orally once every day. 4. Hypertension and hypertensive cardiovascular disease. Continue metoprolol 50 mg orally twice every day, ramipril 10 mg orally twice every day, hydralazine 50 mg orally twice every day. Monitor the patient blood pressure very closely. 5. Mixed hyperlipidemia. Continue patient on rosuvastatin 20 mg once every day. Monitor lipid panel, keep LDL 55-70. 6. Diabetes mellitus type 2. Continue Lantus 18 units at bedtime along with Humalog 5 units before each meal along with a sliding scale insulin, continue Jardiance 10 mg orally once every day. Check blood glucose level before each meal and at bedtime 7. GERD. Continue patient on pantoprazole 40 mg orally once every day. 8. Osteoarthritis. Continue current pain management with hydrocodone as needed. 9. Diabetic polyneuropathy. Continue gabapentin 100 mg orally twice every day. 10. DVT prophylaxis. Bilateral knee-high MARISELA hose to hold off Lovenox due to the patient pancytopenia. 11. GI prophylaxis continue patient on Protonix 40 mg orally once every day. 12. Medical debility. Physical therapy evaluation 13. Vascular dementia without behavioral disturbances. Monitor the patient very closely. 14. 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 15. Patient is no code. Past Medical History Past Medical History: Coronary Artery Disease (CAD), Cancer, Diabetes Mellitus, GERD/Reflux, Hyperlipidemia, Hypertension, Osteoarthritis (OA) Additional Past Medical History / Comment(s): arthritis; bowel cancer 1999; DJD; chronic back pain; carcinoid tumor ileum 2020 Last Myocardial Infarction Date:: 2004 History of Any Multi-Drug Resistant Organisms: None Reported Past Surgical History: Bowel Resection, Hysterectomy, Joint Replacement, Orthopedic Surgery Additional Past Surgical History / Comment(s): bowel resection took out 10 inches of colon; cabg 3 vessel 2004; bladder suspensions 4-5 of them; L total knee replacement; multiple breast biopsies; Past Anesthesia/Blood Transfusion Reactions: No Reported Reaction Past Psychological History: No Psychological Hx Reported Smoking Status: Former smoker Past Alcohol Use History: None Reported Past Drug Use History: None Reported - Past Family History Brother(s) Family Medical History: Coronary Artery Disease (CAD) Additional Family Medical History / Comment(s): LEUKEMIA Sister(s) Family Medical History: Diabetes Mellitus Daughter(s) Family Medical History: Renal Disease Additional Family Medical History / Comment(s): BREAST CANCER Son(s) Family Medical History: No Reported History Father Family Medical History: Diabetes Mellitus, Vascular Disorder Additional Family Medical History / Comment(s): Father had an amputation of his legs Mother Family Medical History: Myocardial Infarction (MD) Medications and Allergies Home Medications Medication Instructions Recorded Confirmed Type ramipriL [Ramipril] 10 mg PO BID 12/05/18 11/28/21 History Metoprolol Tartrate [Lopressor] 50 mg PO BID 04/02/20 11/28/21 History Omeprazole 40 mg PO DAILY 04/02/20 11/28/21 History Empagliflozin [Jardiance] 10 mg PO DAILY 04/04/20 11/28/21 History amLODIPine [Norvasc] 10 mg PO DAILY 10/27/20 11/28/21 History Aspirin EC [Ecotrin Low Dose] 81 mg PO DAILY 11/28/21 11/28/21 History Gabapentin [Neurontin] 100 mg PO BID 11/28/21 11/28/21 History Insulin Glargine,Hum.rec.anlog 32 units SQ HS 11/28/21 11/28/21 History [Lantus Solostar Pen] Insulin Lispro [humaLOG Kwikpen] 7 unit SQ AC-TID 11/28/21 11/28/21 History Rosuvastatin [Crestor] 20 mg PO DAILY 11/28/21 11/28/21 History hydrALAZINE HCL [Apresoline] 25 mg PO BID 11/28/21 11/28/21 History icosapent ethyL [Icosapent Ethyl] 2 gm PO BID 11/28/21 11/28/21 History Allergies Allergy/AdvReac Type Severity Reaction Status Date / Time clopidogrel bisulfate Allergy Rash/Hives Verified 08/16/23 10:58 [From Plavix] prednisone AdvReac Confusion Verified 08/16/23 10:58 zolpidem tartrate AdvReac Confusion, Verified 08/16/23 10:58 [From Ambien] MEMORY LOSS Physical Exam Vitals: Vital Signs Temp Pulse Resp BP Pulse Ox 08/16/23 13:36 57 L 18 151/53 98 08/16/23 12:15 56 L 18 147/65 97 08/16/23 10:53 98.9 F 62 18 174/55 96 Intake and Output 08/15/23 08/16/23 08/16/23 22:59 06:59 14:59 Other: Weight 56.699 kg Results CBC & Chem 7: 08/16/23 11:51 08/16/23 11:51 Labs: Abnormal Lab Results - Last 24 Hours (Table) 08/16/23 08/16/23 08/16/23 Range/Units 11:51 11:51 12:40 WBC 2.1 L (3.8-10.6) k/uL RBC 2.39 L (3.80-5.40) m/uL Hgb 7.1 L (11.4-16.0) gm/dL Hct 22.4 L (34.0-46.0) % RDW 15.8 H (11.5-15.5) % Plt Count 78 L (150-450) k/uL Neutrophils # (Manual) 1.20 L (1.3-7.7) k/uL Lymphocytes # (Manual) 0.55 L (1.0-4.8) k/uL Metamyelocytes # (Man) 0.02 H (0) k/uL Chloride 108 H (98-107) mmol/L BUN 23 H (7-17) mg/dL Glucose 108 H (74-99) mg/dL Magnesium 1.5 L (1.6-2.3) mg/dL Albumin 3.3 L (3.5-5.0) g/dL Urine Protein 1+ H (Negative) Urine Glucose (UA) 4+ H (Negative) Urine Bacteria Rare H (None) /hpf Urine Mucus Rare H (None) /hpf
[2023-08-16] MEDS: amLODIPine 10 MG TAB PO SCH (16:02)
[2023-08-16] MEDS: ASPIRIN 81 MG PO SCH (16:02)
[2023-08-16 17:02] LABS: ALT 22 U/L (4-34); AST 36 U/L (14-36); African American GFR (CKD) 55 (>60 ml/min/1.73 sqM); Albumin/Globulin Ratio 1.2; Alkaline Phosphatase 109 U/L (38-126); Anion Gap 10 mmol/L; Blood Urea Nitrogen 21 mg/dL (7-17); Calcium 8.9 mg/dL (8.4-10.2); Carbon Dioxide 24 mmol/L (22-30); Chloride 105 mmol/L (98-107); Globulin 3.4 g/dL; Glucose 132 mg/dL (74-99); LDH 572 U/L (120-246); Non-African American GFR(CKD) 48 (>60 ml/min/1.73 sqM); Potassium 3.9 mmol/L (3.5-5.1); Sodium 139 mmol/L (137-145); Total Bilirubin 0.8 mg/dL (0.2-1.3); Total Protein 7.4 g/dL (6.3-8.2)
[2023-08-16 17:04] LABS: HCT 25.4 % (34.0-46.0); HGB 8.4 gm/dL (11.4-16.0); MCH 30.7 pg (25.0-35.0); MCHC 32.9 g/dL (31.0-37.0); MCV 93.2 fL (80.0-100.0); Mean Platelet Volume 10.9; RBC 2.73 m/uL (3.80-5.40); RDW 15.9 % (11.5-15.5); Reticulocyte % 1.1 % (0.5-2.0); WBC 2.9 k/uL (3.8-10.6)
[2023-08-16 17:05] LABS: Platelet Count 97 k/uL (150-450)
[2023-08-16 17:35] LABS: Eosinophils # (M) 0.09 k/uL (0-0.7); Lymphocytes # (M) 0.67 k/uL (1.0-4.8); Monocytes # (M) 0.38 k/uL (0-1.0); Neutrophils # (M) 1.77 k/uL (1.3-7.7); Neutrophils % (M) 61 %; Nucleated Red Blood Cells 0 /100 WBC (0-0); Total Cells Counted 100
[2023-08-16 17:36] LABS: RBC Morphology Normal
[2023-08-16 18:01] LABS: Glucose,Whole Blood 132 mg/dL (70-110)
[2023-08-16] MEDS: INSULIN ASPART (NovoLOG) 100 UNIT/ML VIAL SQ SCH (18:44)
[2023-08-16 19:58] LABS: Glucose,Whole Blood 213 mg/dL (70-110)
[2023-08-16] MEDS: lisinopriL 20 MG TAB PO SCH (21:31)
[2023-08-16] MEDS: GABAPENTIN 100 MG CAP PO SCH (21:31)
[2023-08-16] MEDS: METOPROLOL TARTRATE 50 MG TAB PO SCH (21:31)
[2023-08-16] MEDS: FUROSEMIDE 10 MG/ML 4 ML VIAL IV SCH (21:32)
[2023-08-16] MEDS: hydrALAZINE HCL 25 MG TAB PO SCH (21:32)
[2023-08-16] MEDS: NON FORMULARY DRUG (Icosapent Ethyl [Icosapent Ethyl] 1 GM Capsule) PO SCH (21:35)
[2023-08-16] MEDS: INSULIN DETEMIR (LEVEMIR) 100 UNIT/ML SYR SQ SCH (21:36)
[2023-08-17 03:11] LABS: Protein, Total 7.4 g/dL (6.2-8.2)
[2023-08-17 03:30] LABS: Iron 47 UG/DL (50-170)
[2023-08-17 03:36] LABS: Immunoglobulin M 91.8 mg/dL (40.0-280.0)
[2023-08-17 07:13] LABS: Glucose,Whole Blood 78 mg/dL (70-110)
[2023-08-17] MEDS: PANTOPRAZOLE 40 MG TABLET PO SCH (08:51)
[2023-08-17] MEDS: ATORVASTATIN 40 MG TAB PO SCH (08:51)
[2023-08-17] MEDS: DAPAGLIFLOZIN PROPANEDIOL 5 MG TABLET PO SCH (08:51)
[2023-08-17] MEDS: amLODIPine 5 MG TAB PO SCH (08:52)
[2023-08-17 09:23] LABS: HCT 24.2 % (34.0-46.0); MCH 30.7 pg (25.0-35.0); MCHC 32.9 g/dL (31.0-37.0); MCV 93.3 fL (80.0-100.0); Mean Platelet Volume 10.9; RBC 2.59 m/uL (3.80-5.40); RDW 15.6 % (11.5-15.5); WBC 2.9 k/uL (3.8-10.6)
[2023-08-17 09:58] LABS: ALT 21 U/L (4-34); AST 37 U/L (14-36); African American GFR (CKD) 65 (>60 ml/min/1.73 sqM); Albumin 3.4 g/dL (3.5-5.0); Alkaline Phosphatase 83 U/L (38-126); Anion Gap 8 mmol/L; Blood Urea Nitrogen 21 mg/dL (7-17); Calcium 8.7 mg/dL (8.4-10.2); Carbon Dioxide 27 mmol/L (22-30); Chloride 103 mmol/L (98-107); Globulin 3.3 g/dL; Glucose 86 mg/dL (74-99); Non-African American GFR(CKD) 56 (>60 ml/min/1.73 sqM); Potassium 3.6 mmol/L (3.5-5.1); Sodium 138 mmol/L (137-145); Total Bilirubin 0.8 mg/dL (0.2-1.3); Total Protein 6.7 g/dL (6.3-8.2)
[2023-08-17 10:02] LABS: Platelet Count 74 k/uL (150-450)
[2023-08-17] MEDS: HYDROcodone/APAP 5-325MG 1 EACH TAB PO PRN (11:04)
[2023-08-17 12:33] LABS: Glucose,Whole Blood 137 mg/dL (70-110)
--- NOTE | 2023-08-17 12:43 | CA ---
Transthoracic Echo Report Name: Romelia Pickett Age: 87 Gender: F : 1935 Exam Date: 08/17/2023 08:10 Exam Location: [place] [facility] Ht (in): 63 Wt (lb): 125 Ordering Physician: Kenya Block MD Attending/Referring Phys: Skiver Hand Alexandra Dunn RDCS Procedure CPT: Indications: chf Cardiac Hx: hx of CABG Technical Quality: Good Contrast 1: Total Dose (mL): Contrast 2: Total Dose (mL): MEASUREMENTS (Male / Female) Normal Values 2D ECHO LV Diastolic Diameter PLAX 5.0 cm 4.2 - 5.9 / 3.9 - 5.3 cm LV Systolic Diameter PLAX 3.5 cm IVS Diastolic Thickness 1.1 cm 0.6 - 1.0 / 0.6 - 0.9 cm LVPW Diastolic Thickness 1.2 cm 0.6 - 1.0 / 0.6 - 0.9 cm LV Relative Wall Thickness 0.4 RV Internal Dim ED PLAX 3.0 cm LA Systolic Diameter LX 4.5 cm 3.0 - 4.0 / 2.7 - 3.8 cm LV Diastolic Volume MOD 4C 122.2 cm??? LV Systolic Volume MOD 4C 65.8 cm??? LV Ejection Fraction MOD 4C 46.1 % LV Cardiac Index MOD 4C 2230.8 cm???/min???m??? LV Diastolic Length 4C 7.8 cm LV Systolic Length 4C 6.4 cm LV Diastolic Volume MOD 2C 88.1 cm??? LV Systolic Volume MOD 2C 47.2 cm??? LV Ejection Fraction MOD 2C 46.4 % LV Cardiac Index MOD 2C 1616.5 cm???/min???m??? LV Diastolic Length 2C 8.1 cm LV Systolic Length 2C 7.3 cm LA Volume 90.3 cm??? 18 - 58 / 22 - 52 cm??? LA Volume Index 56.7 cm???/m??? 16 - 28 cm???/m??? M-MODE Aortic Root Diameter MM 2.9 cm MV E Point Septal Separation 1.0 cm DOPPLER AV Peak Velocity 166.4 cm/s AV Peak Gradient 11.1 mmHg MV Peak Velocity 197.2 cm/s MV Peak Gradient 15.6 mmHg MV Mean Velocity 96.1 cm/s MV Mean Gradient 4.5 mmHg MV Velocity Time Integral 53.7 cm MV Area PHT 4.0 cm??? MR Peak Velocity 662.1 cm/s MR Peak Gradient 175.4 mmHg Mitral E Point Velocity 181.1 cm/s Mitral A Point Velocity 91.3 cm/s Mitral E to A Ratio 2.0 MV Deceleration Time 190.6 ms TR Peak Velocity 322.6 cm/s TR Peak Gradient 41.6 mmHg Right Ventricular Systolic Press 45.3 mmHg FINDINGS Left Ventricle Left ventricular ejection fraction is estimated at 50-55 %. Left ventricular cavity size normal. Mildly increased septal wall thickness. Mildly increased posterior wall thickness. Normal left ventricular wall motion. Right Ventricle Normal right ventricular size. Moderate pulmonary hypertension. Right Atrium Normal right atrial size. Left Atrium Moderately increased left atrial diameter. Severely increased left atrial volume. Mildly increased left atrial area. Mitral Valve Mitral valve thickened. Moderate mitral regurgitation. Mild mitral stenosis. Aortic Valve Trileaflet aortic valve. No aortic valve stenosis or regurgitation. Tricuspid Valve Structurally normal tricuspid valve. [id number] tricuspid regurgitation. Pulmonic Valve Pulmonic valve not well visualized. No pulmonic regurgitation. Pericardium No pericardial effusion. Aorta Normal size aortic root and proximal ascending aorta. CONCLUSIONS Normal LV function Moderate mitral regurgitation Mild to moderate tricuspid regurgitation Mild pulmonary hypertension Mild mitral stenosis Previewed by: Dr. Fazal Busby MD (Electronically Signed) Final Date: 17 August 2023 12:42
--- NOTE | 2023-08-17 12:45 | P.PN ---
Subjective Progress Note Date: 08/17/23 This is an 87-year-old female with a previous medical history significant for coronary artery disease status post CABG times 07/2004, hypertension and hypertensive cardiovascular disease, hyperlipidemia, diabetes mellitus type 2 with diabetic polyneuropathy, history of carcinoid tumor status post partial colectomy history of vascular dementia without behavioral disturbances, patient was seen in the office last back in July about a month ago with increased swelling in both lower extremities and significant weight loss, patient has been following with hematology oncology on a regular basis, due to her carcinoid tumor, patient apparently presented to my office on July 22, 2023 with increased swelling in both lower extremities she was sent to the ER for evaluation by venous Doppler that was negative for deep venous thrombosis, she was placed on diuretics, and the patient's health has been declining over the last few month, she is forgetting to take her insulin, she lives with her son who is the primary caregiver for her, but he has to run out to do some errands, patient has not been eating much today she was extremely weak and she could not do anything on her own, with increased swelling both lower extremities she appears pale, she was seen in the emergency department at [facility], she was found to have pancytopenia with a low white cells and her hemoglobin was 7.1 and the platelet count was 75,000, this is a new for the patient, patient also had a chest x-ray that showed bilateral pleural effusions with pulmonary vascular congestion suggestive of acute diastolic heart failure, patient was started on IV diuretics in the form of Lasix 40 mg IV push every 12 hours, and cardiology consultation was obtained from the patient as well as hematology oncology consultation due to her pancytopenia, patient also has been extremely weak with recurrent falls, she will be seen and evaluated by physical therapy and Occupational Therapy for possible subacute rehabilitation. Patient is DO NOT RESUSCITATE at this time 08/16. Patient seen and examined. Swelling of legs has improved. Denies any shortness of breath at rest REVIEW OF SYSTEMS: CONSTITUTIONAL: No fever, no malaise,. CARDIOVASCULAR: No chest pain, no palpitations, no syncope. PULMONARY: No shortness of breath, no cough, GASTROINTESTINAL: No diarrhea, no nausea, no vomiting, no abdominal pain. NEUROLOGICAL: No headaches, no weakness, PHYSICAL EXAMINATION: GENERAL: The patient is alert and oriented x3, not in any acute distress. Well developed, well nourished. HEENT: Pupils are round and equally reacting to light. EOMI. No scleral icterus. No conjunctival pallor. Normocephalic, atraumatic. No pharyngeal erythema. No thyromegaly. CARDIOVASCULAR: S1 and S2 present. No murmurs, rubs, or gallops. PULMONARY: Chest is clear to auscultation, no wheezing or crackles. ABDOMEN: Soft, nontender, nondistended, normoactive bowel sounds. No palpable organomegaly. MUSCULOSKELETAL: No joint swelling or deformity. EXTREMITIES: No cyanosis, clubbing, or pedal edema. NEUROLOGICAL: Gross neurological examination did not reveal any focal deficits. SKIN: No rashes. Assessment and plan 1. Acute on chronic diastolic heart failure. Monitor vital sign Monitor CBC Monitor CMP Strict I's and O's, daily weights, Lasix 40 mg IV push every 12 hours continue patient on metoprolol 50 mg orally twice every day, continue patient on ramipril 10 mg orally twice every day as well, continue Jardiance 10 mg once every day Cardiology consulted 2. Pancytopenia. Monitor CBC Consulted by oncology 3. Coronary artery disease status post coronary artery bypass graft. Continue metoprolol 50 mg orally twice every day, ramipril 10 mg orally twice every day, aspirin 81 mg once every day, continue rosuvastatin 20 mg orally once every day, isosorbide mononitrate 30 mg orally once every day. 4. Hypertension and hypertensive cardiovascular disease. Continue metoprolol 50 mg orally twice every day, ramipril 10 mg orally twice every day, hydralazine 50 mg orally twice every day. Monitor the patient blood pressure very closely. 5. Mixed hyperlipidemia. Continue rosuvastatin 6. Diabetes mellitus type 2. Monitor blood sugar levels, continue current insulin regimen 7. GERD. Continue patient on pantoprazole 40 mg orally once every day. 8. Osteoarthritis. Continue current pain management with hydrocodone as needed. 9. Diabetic polyneuropathy. Continue gabapentin 100 mg orally twice every day. 10. DVT prophylaxis. Bilateral knee-high MARISELA hose to hold off Lovenox due to the patient pancytopenia. 11. GI prophylaxis continue patient on Protonix 40 mg orally once every day. 12. Medical debility. Physical therapy evaluation 13. Vascular dementia without behavioral disturbances. Monitor the patient very closely. Labs and medication were reviewed.. Continue same treatment. Continue with symptomatic treatment. Resume home medication. Monitor labs and vitals. DVT and GI prophylaxis. Further recommendations as per clinical course of the patient Dictation was produced using [employer] dictation software. please excuse any grammatical, word or spelling errors. Objective - Vital Signs Vital signs: Vital Signs Temp 99.1 F 08/17/23 07:10 Pulse 66 08/17/23 07:10 Resp 16 08/17/23 07:10 BP 188/32 08/17/23 07:10 Pulse Ox 94 L 08/17/23 07:10 FiO2 Intake & Output 08/16/23 08/17/23 08/17/23 18:59 06:59 18:59 Intake Total 120 Output Total 1750 1600 Balance -1750 -1480 Weight 56.699 kg 55.5 kg Intake: Oral 120 Output: Urine 1750 1600 Uretheral (Hobbs) 650 Other: Voiding Method Indwelling Catheter - Labs CBC & Chem 7: 08/17/23 08:31 08/17/23 08:31 Labs: Abnormal Lab Results - Last 24 Hours (Table) 08/16/23 08/16/23 08/16/23 Range/Units 11:51 11:51 12:40 WBC 2.1 L (3.8-10.6) k/uL RBC 2.39 L (3.80-5.40) m/uL Hgb 7.1 L (11.4-16.0) gm/dL Hct 22.4 L (34.0-46.0) % RDW 15.8 H (11.5-15.5) % Plt Count 78 L (150-450) k/uL Neutrophils # (Manual) 1.20 L (1.3-7.7) k/uL Lymphocytes # (Manual) 0.55 L (1.0-4.8) k/uL Metamyelocytes # (Man) 0.02 H (0) k/uL Chloride 108 H (98-107) mmol/L BUN 23 H (7-17) mg/dL Creatinine (0.52-1.04) mg/dL Glucose 108 H (74-99) mg/dL POC Glucose (mg/dL) (70-110) mg/dL Magnesium 1.5 L (1.6-2.3) mg/dL Iron (50-170) UG/DL Ferritin (10.0-291.0) ng/mL AST (14-36) U/L Lactate Dehydrogenase (120-246) U/L Albumin 3.3 L (3.5-5.0) g/dL Urine Protein 1+ H (Negative) Urine Glucose (UA) 4+ H (Negative) Urine Bacteria Rare H (None) /hpf Urine Mucus Rare H (None) /hpf IgG (700.0-1600.0) mg/dL Crossmatch 08/16/23 08/16/23 08/16/23 Range/Units 16:30 16:30 16:30 WBC 2.9 L (3.8-10.6) k/uL RBC 2.73 L (3.80-5.40) m/uL Hgb 8.4 L (11.4-16.0) gm/dL Hct 25.4 L (34.0-46.0) % RDW 15.9 H (11.5-15.5) % Plt Count 97 L (150-450) k/uL Neutrophils # (Manual) (1.3-7.7) k/uL Lymphocytes # (Manual) 0.67 L (1.0-4.8) k/uL Metamyelocytes # (Man) (0) k/uL Chloride (98-107) mmol/L BUN 21 H (7-17) mg/dL Creatinine 1.06 H (0.52-1.04) mg/dL Glucose 132 H (74-99) mg/dL POC Glucose (mg/dL) (70-110) mg/dL Magnesium (1.6-2.3) mg/dL Iron 47 L (50-170) UG/DL Ferritin 370.0 H (10.0-291.0) ng/mL AST (14-36) U/L Lactate Dehydrogenase 572 H (120-246) U/L Albumin (3.5-5.0) g/dL Urine Protein (Negative) Urine Glucose (UA) (Negative) Urine Bacteria (None) /hpf Urine Mucus (None) /hpf IgG 1824.0 H (700.0-1600.0) mg/dL Crossmatch 08/16/23 08/16/23 08/16/23 Range/Units 16:30 18:00 19:57 WBC (3.8-10.6) k/uL RBC (3.80-5.40) m/uL Hgb (11.4-16.0) gm/dL Hct (34.0-46.0) % RDW (11.5-15.5) % Plt Count (150-450) k/uL Neutrophils # (Manual) (1.3-7.7) k/uL Lymphocytes # (Manual) (1.0-4.8) k/uL Metamyelocytes # (Man) (0) k/uL Chloride (98-107) mmol/L BUN (7-17) mg/dL Creatinine (0.52-1.04) mg/dL Glucose (74-99) mg/dL POC Glucose (mg/dL) 132 H 213 H (70-110) mg/dL Magnesium (1.6-2.3) mg/dL Iron (50-170) UG/DL Ferritin (10.0-291.0) ng/mL AST (14-36) U/L Lactate Dehydrogenase (120-246) U/L Albumin (3.5-5.0) g/dL Urine Protein (Negative) Urine Glucose (UA) (Negative) Urine Bacteria (None) /hpf Urine Mucus (None) /hpf IgG (700.0-1600.0) mg/dL Crossmatch See Detail 08/17/23 08/17/23 Range/Units 08:31 08:31 WBC 2.9 L (3.8-10.6) k/uL RBC 2.59 L (3.80-5.40) m/uL Hgb 8.0 L (11.4-16.0) gm/dL Hct 24.2 L (34.0-46.0) % RDW 15.6 H (11.5-15.5) % Plt Count (150-450) k/uL Neutrophils # (Manual) (1.3-7.7) k/uL Lymphocytes # (Manual) (1.0-4.8) k/uL Metamyelocytes # (Man) (0) k/uL Chloride (98-107) mmol/L BUN 21 H (7-17) mg/dL Creatinine (0.52-1.04) mg/dL Glucose (74-99) mg/dL POC Glucose (mg/dL) (70-110) mg/dL Magnesium (1.6-2.3) mg/dL Iron (50-170) UG/DL Ferritin (10.0-291.0) ng/mL AST 37 H (14-36) U/L Lactate Dehydrogenase (120-246) U/L Albumin 3.4 L (3.5-5.0) g/dL Urine Protein (Negative) Urine Glucose (UA) (Negative) Urine Bacteria (None) /hpf Urine Mucus (None) /hpf IgG (700.0-1600.0) mg/dL Crossmatch
[2023-08-17] MEDS: CYANOCOBALAMIN 1,000 MCG/ML 1 ML VIAL IM SCH (13:18)
[2023-08-17 13:25] LABS: Eosinophils # (M) 0.12 k/uL (0-0.7); Nucleated Red Blood Cells 0 /100 WBC (0-0)
[2023-08-17 13:30] LABS: Band Neutrophils % 1 %; Lymphocytes # (M) 0.67 k/uL (1.0-4.8); Metamyelocytes # (M) 0.03 k/uL (0); Metamyelocytes % 1 %; Monocytes # (M) 0.23 k/uL (0-1.0); Neutrophils % (M) 65 %; RBC Morphology Normal; Total Cells Counted 200
--- NOTE | 2023-08-17 13:57 | CONS ---
CONSULTATION CHIEF COMPLAINT: Congestive heart failure. HISTORY OF PRESENT ILLNESS: Romelia is an 87-year-old lady with history of coronary artery disease, status post bypass surgery; hypertension; dyslipidemia; diabetes; carcinoid tumor, status post partial colectomy; and vascular dementia; who presents to hospital with worsening lower extremity edema and shortness of breath. She also has pancytopenia with hemoglobin is 7.1, platelet count is 75, and white count is low. A chest x-ray showed pleural effusion bilaterally. The patient was treated with intravenous diuretics with some improvement in symptoms. At the time of my evaluation, she does not seem in significant respiratory distress. It is difficult to obtain meaningful history from her. She appears pleasantly confused blissfully and aware of as to why she is in the hospital. PAST MEDICAL HISTORY: Significant for coronary artery disease, status post bypass surgery; chronic diastolic heart failure; insulin-requiring diabetes; hypertension; and dyslipidemia. MEDICATIONS: Medications at home include; 1. Imdur 30 daily. 2. Starr. 3. Ramipril. 4. Apresoline 50 b.i.d. 5. Crestor 20 daily. 6. Omeprazole 40 daily. 7. Lopressor 50 b.i.d. 8. Insulin. 9. Neurontin. 10.Jardiance. 11.Aspirin. 12.Amlodipine. ALLERGIES: The patient is allergic to Plavix, prednisone, and Ambien. FAMILY HISTORY: I am unable to obtain from the patient, who appears pleasantly confused. SOCIAL HISTORY: I am unable to obtain from the patient, who appears pleasantly confused. REVIEW OF SYSTEMS: I am unable to obtain from the patient, who appears pleasantly confused. PHYSICAL EXAMINATION: VITAL SIGNS: Heart rate is 60 beats per minute, blood pressure is 145/40, respiratory rate is 18. CHEST: Reveals good air entry bilaterally. HEART: Reveals first and second heart sounds. No gallop. Has an ejection systolic murmur in the aortic area. ABDOMEN: Soft. EXTREMITIES: Reveals 1+ pitting edema. Peripheral pulses are felt. LABORATORY DATA: Labs show a hemoglobin of 8, white cell count is 2.9. Potassium is 3.6, creatinine is 0.9. IMAGING STUDIES: EKG shows sinus rhythm with nonspecific ST-T wave changes and changes of left ventricular hypertrophy. ASSESSMENT AND PLAN: 1. Acute exacerbation of chronic diastolic heart failure. 2. Coronary artery disease, status post coronary artery bypass graft. 3. Pancytopenia. 4. Hypertension. The patient is currently on IV Lasix, which I am going to continue. I will also continue aspirin, Lipitor, and Lopressor. Blood pressure is poorly controlled. We will increase the dose of hydralazine to 50 t.i.d. I will increase the dose of amlodipine to 10 mg daily, and if necessary, increase the dose of hydralazine. MMODL / IJN: [id number] /
[2023-08-17] MEDS: IOPAMIDOL CONTRAST (ORAL USE) VIAL PO PRN (15:20)
--- NOTE | 2023-08-17 15:22 | P.CONS ---
History of Present Illness - Reason for Consult Consult date: 08/17/23 Pancytopenia - Chief Complaint Weakness - History of Present Illness Ms. 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 Her daughter at bedside provides additional history that she was having progressive swelling in the lower extremities accompanied by weakness. She has had anorexia and weight loss over the past 2 months. She denies any nausea, vomiting, diarrhea, fevers, chills, night sweats, melena, hematochezia, or prior blood per rectum. Due to weakness, she brought to [facility] ED for further evaluation. On presentation, she was hemodynamically stable and afebrile. Labs were significant for pancytopenia with WBC 2.1 (ANC 1.2), hemoglobin 7.1 (MCV 93.7), platelets 78. There were no acute metabolic abnormalities, she did have elevated proBNP at 16,100. Chest x-ray revealed small bilateral pleural effusions with pulmonary venous congestion. She was started on IV diuretics and admitted for further management. Workup for pancytopenia was significant for vitamin B12 of 201 with folate of 17.7 and ferritin of 370. Hemolysis labs revealed no evidence of hemolysis with negative Jeyson test. She has slightly elevated IgG at 1824 with normal IgA and IgM. SPEP and immunofixation were pending. Review of Systems 14 point review of systems was conducted with pertinent positives and negatives as noted per HPI Past Medical History Past Medical History: Coronary Artery Disease (CAD), Cancer, Diabetes Mellitus, GERD/Reflux, Hyperlipidemia, Hypertension, Osteoarthritis (OA) Additional Past Medical History / Comment(s): arthritis; bowel cancer 1999; DJD; chronic back pain; carcinoid tumor ileum 2020 Last Myocardial Infarction Date:: 2004 History of Any Multi-Drug Resistant Organisms: None Reported Past Surgical History: Bowel Resection, Hysterectomy, Joint Replacement, Orthopedic Surgery Additional Past Surgical History / Comment(s): bowel resection took out 10 inches of colon; cabg 3 vessel 2004; bladder suspensions 4-5 of them; L total knee replacement; multiple breast biopsies; Past Anesthesia/Blood Transfusion Reactions: No Reported Reaction Past Psychological History: No Psychological Hx Reported Additional Psychological History / Comment(s): Pt and her live in son's home. Son works outside the home. Pt is fairly independent. Pt has never had a [place]in[place] driver's license. Smoking Status: Former smoker Past Alcohol Use History: None Reported Past Drug Use History: None Reported - Past Family History Brother(s) Family Medical History: Coronary Artery Disease (CAD) Additional Family Medical History / Comment(s): LEUKEMIA Sister(s) Family Medical History: Diabetes Mellitus Daughter(s) Family Medical History: Renal Disease Additional Family Medical History / Comment(s): BREAST CANCER Son(s) Family Medical History: No Reported History Father Family Medical History: Diabetes Mellitus, Vascular Disorder Additional Family Medical History / Comment(s): Father had an amputation of his legs Mother Family Medical History: Myocardial Infarction ([place]) Medications and Allergies Home Medications Medication Instructions Recorded Confirmed Type ramipriL [Ramipril] 10 mg PO BID 12/05/18 08/16/23 History Metoprolol Tartrate [Lopressor] 50 mg PO BID 04/02/20 08/16/23 History Omeprazole 40 mg PO DAILY 04/02/20 08/16/23 History Empagliflozin [Jardiance] 10 mg PO DAILY 04/04/20 08/16/23 History Aspirin EC [Ecotrin Low Dose] 81 mg PO DAILY 11/28/21 08/16/23 History Gabapentin [Neurontin] 100 mg PO BID 11/28/21 08/16/23 History Insulin Glargine,Hum.rec.anlog 18 units SQ 11/28/21 08/16/23 History [Lantus Solostar Pen] Insulin Lispro [humaLOG Kwikpen] See Protocol SQ AC-TID 11/28/21 08/16/23 History Rosuvastatin [Crestor] 20 mg PO HS 11/28/21 08/16/23 History icosapent ethyL [Icosapent Ethyl] 2 gm PO BID 11/28/21 08/16/23 History HYDROcodone/APAP 5-325MG [Henriette 0.5 tab PO BID 08/16/23 08/16/23 History 5-325] Isosorbide Mononitrate ER [Imdur] 30 mg PO DAILY 08/16/23 08/16/23 History Multivitamins, Thera [Multivitamin 1 tab PO HS 08/16/23 08/16/23 History (formulary)] amLODIPine [Norvasc] 5 mg PO DAILY 08/16/23 08/16/23 History hydrALAZINE HCL [Apresoline] 50 mg PO BID 08/16/23 08/16/23 History Allergies Allergy/AdvReac Type Severity Reaction Status Date / Time clopidogrel bisulfate Allergy Rash/Hives Verified 08/16/23 16:06 [From Plavix] prednisone AdvReac Confusion Verified 08/16/23 16:06 zolpidem tartrate AdvReac Confusion, Verified 08/16/23 16:06 [From Ambien] MEMORY LOSS Physical Exam Vitals: Vital Signs Temp Pulse Pulse Resp BP BP BP 08/17/23 12:27 99.2 F 60 17 154/49 08/17/23 08:50 66 16 08/17/23 07:10 99.1 F 66 16 188/32 08/17/23 02:00 98.9 F 60 16 145/44 08/16/23 20:00 98.3 F 72 16 161/53 08/16/23 18:13 98.2 F 66 18 172/55 08/16/23 16:30 64 18 185/59 08/16/23 16:03 65 18 204/65 08/16/23 15:46 68 18 195/87 Pulse Ox 08/17/23 12:27 96 08/17/23 08:50 08/17/23 07:10 94 L 08/17/23 02:00 94 L 08/16/23 20:00 97 08/16/23 18:13 97 08/16/23 16:30 97 08/16/23 16:03 98 08/16/23 15:46 97 Intake and Output 08/17/23 08/17/23 08/17/23 06:59 14:59 22:59 Output Total 1600 Balance -1600 Output: Urine 1600 Other: Voiding Method Indwelling Catheter Weight 55.5 kg - Constitutional General appearance: cooperative, no acute distress, thin - EENT Eyes: EOMI - Respiratory Respiratory: bilateral: other (Inspiratory crackles) - Cardiovascular Rhythm: regular leg Peripheral Edema: right: 1+, left: 2+ - Gastrointestinal General gastrointestinal: no distended, soft - Integumentary Integumentary: pale, no rash - Neurologic Neurologic: CNII-XII intact - Psychiatric Psychiatric: appropriate affect Results CBC & Chem 7: 08/17/23 08:31 08/17/23 08:31 Labs: Abnormal Lab Results - Last 24 Hours (Table) 08/16/23 08/16/23 08/16/23 Range/Units 16:30 16:30 16:30 WBC 2.9 L (3.8-10.6) k/uL RBC 2.73 L (3.80-5.40) m/uL Hgb 8.4 L (11.4-16.0) gm/dL Hct 25.4 L (34.0-46.0) % RDW 15.9 H (11.5-15.5) % Plt Count 97 L (150-450) k/uL Lymphocytes # (Manual) 0.67 L (1.0-4.8) k/uL Metamyelocytes # (Man) (0) k/uL BUN 21 H (7-17) mg/dL Creatinine 1.06 H (0.52-1.04) mg/dL Glucose 132 H (74-99) mg/dL POC Glucose (mg/dL) (70-110) mg/dL Iron 47 L (50-170) UG/DL Ferritin 370.0 H (10.0-291.0) ng/mL AST (14-36) U/L Lactate Dehydrogenase 572 H (120-246) U/L Albumin (3.5-5.0) g/dL IgG 1824.0 H (700.0-1600.0) mg/dL Crossmatch 08/16/23 08/16/23 08/16/23 Range/Units 16:30 18:00 19:57 WBC (3.8-10.6) k/uL RBC (3.80-5.40) m/uL Hgb (11.4-16.0) gm/dL Hct (34.0-46.0) % RDW (11.5-15.5) % Plt Count (150-450) k/uL Lymphocytes # (Manual) (1.0-4.8) k/uL Metamyelocytes # (Man) (0) k/uL BUN (7-17) mg/dL Creatinine (0.52-1.04) mg/dL Glucose (74-99) mg/dL POC Glucose (mg/dL) 132 H 213 H (70-110) mg/dL Iron (50-170) UG/DL Ferritin (10.0-291.0) ng/mL AST (14-36) U/L Lactate Dehydrogenase (120-246) U/L Albumin (3.5-5.0) g/dL IgG (700.0-1600.0) mg/dL Crossmatch See Detail 08/17/23 08/17/23 08/17/23 Range/Units 08:31 08:31 12:24 WBC 2.9 L (3.8-10.6) k/uL RBC 2.59 L (3.80-5.40) m/uL Hgb 8.0 L (11.4-16.0) gm/dL Hct 24.2 L (34.0-46.0) % RDW 15.6 H (11.5-15.5) % Plt Count 74 L (150-450) k/uL Lymphocytes # (Manual) 0.67 L (1.0-4.8) k/uL Metamyelocytes # (Man) 0.03 H (0) k/uL BUN 21 H (7-17) mg/dL Creatinine (0.52-1.04) mg/dL Glucose (74-99) mg/dL POC Glucose (mg/dL) 137 H (70-110) mg/dL Iron (50-170) UG/DL Ferritin (10.0-291.0) ng/mL AST 37 H (14-36) U/L Lactate Dehydrogenase (120-246) U/L Albumin 3.4 L (3.5-5.0) g/dL IgG (700.0-1600.0) mg/dL Crossmatch Chest x-ray: report reviewed Assessment and Plan (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 Code(s): C7A.8 - OTHER MALIGNANT NEUROENDOCRINE TUMORS SNOMED Code(s): 236201796 (2) Pancytopenia Current Visit: Yes Status: Acute Code(s): D61.818 - OTHER PANCYTOPENIA SNOMED Code(s): 734247385 Plan: #Pancytopenia -Presented with mild neutropenia with ANC of 1.2, normocytic anemia, and thrombocytopenia -Workup was significant with low vitamin B12 of 201 with normal folate and elevated ferritin of 370 and an inappropriately normal reticulocyte count of 1.1 -Hemolysis labs were negative with elevated IgG and pending SPEP and im munofixation -Pancytopenia could be due to vitamin B12 deficiency along with acute inflammation from heart failure exacerbation -She likely has component of vitamin B12 deficiency due to decreased oral intake and possibly from prior bowel surgery for neuroendocrine carcinoma causing impaired absorption -Vitamin B12 1000 mcg intramuscular injection daily has been ordered for 4 days -Additional workup has been ordered including thyroid profile, iron profile, copper, and fibrinogen -She likely has elevated IgG that is not monoclonal secondary to inflammation from heart failure exacerbation -Follow-up on serum protein electrophoresis and immunofixation -Due to her multiple medical comorbidities, testing with bone marrow biopsy would be of limited benefit. Discussed with the daughter at bedside and agreed #Neuroendocrine carcinoma of the small bowel -Resected on 09/25/2013 consistent with well-differentiated neuroendocrine carcinoma and 4 of 8 regional lymph nodes being involved. Pathologic staging was consistent with IIIB (T3N1M0) -Dotatate PET/CT on 05/30/2020 revealed suspicious uptake in the lower abdomen/lymph node measuring 2.3 cm at the anastomosis, concerning for recurrence -Surveillance imaging had been performed, most recently on 02/18/2023, revealing stable soft tissue lesion in the mesentery -Currently, she is not having any signs or symptoms of bowel obstruction -Given her history, anorexia, and weight loss, I did discuss obtaining repeat CT abdomen/pelvis. Following discussion, they were agreeable to proceed -CT abdomen/pelvis with oral and IV contrast was ordered. If she is not able to tolerate oral contrast, test could be done with IV contrast alone Leticia Corado MD
[2023-08-17 17:20] LABS: Glucose,Whole Blood 170 mg/dL (70-110)
[2023-08-17 18:10] LABS: Glucose,Whole Blood 164 mg/dL (70-110)
[2023-08-17 20:00] LABS: Glucose,Whole Blood 176 mg/dL (70-110)
[2023-08-17 23:26] LABS: % Iron Saturation 18.78 (12.00-45.00); Iron 46 UG/DL (50-170); Total Iron Binding Capacity 245 UG/DL (228-460)
--- NOTE | 2023-08-18 02:12 | CT ---
EXAMINATION TYPE: CT ChestAbdPelvis w con DATE OF EXAM: 08/17/2023 COMPARISON: Prior whole body CT February 18, 2023 and older studies HISTORY: weight loss, hx of colon carcinoid cancer CT DLP: 436.6 mGycm. Automated Exposure Control for Dose Reduction was Utilized. CONTRAST: CT scan of the thorax, abdomen and pelvis is performed with oral and with IV Contrast, patient inject ed with 100 mL of Isovue 300. FINDINGS: LUNGS: There is new small right and tiny left-sided pleural effusions. Mild underlying emphysematous change. No suspicious greater than 5 mm noncalcified nodules or masses. There is a 5 mm calcified rig ht lower lobe nodule or benign granuloma axial image 38. Mild biapical scarring. No pneumothorax seen bilaterally MEDIASTINUM: There are no new greater than 1 cm noncalcified hilar or mediastinal lymph nodes. Calcif ied right hilar lymph nodes redemonstrated. Mild cardiomegaly. No pericardial effusion is seen. Post -CABG changes with mediastinal clips and sternal wires. OTHER: Stable 1.0 cm well-defined low dense lesion left breast axial image 24. Possible subcentimeter lesion right breast axial image 27 also stable lateral to the nipple. LIVER/GB: Punctate calcification in the liver. Cholecystectomy clips. PANCREAS: Moderate diffuse atrophy redemonstrated. SPLEEN: No significant abnormality is seen. ADRENALS: No significant abnormality is seen. KIDNEYS: Symmetric cortical medullary uptake and excretion without hydronephrosis seen bilaterally. S ubcentimeter thin-walled cyst right kidney axial image 28 series 5 is noted. BOWEL: Oral contrast reaches level of proximal colon. No suspicious small or large bowel dilatation. Scattered diverticula throughout the colon are redemonstrated. GENITAL ORGANS: Uterus is surgically absent. LYMPH NODES: Persistent lobulated upper pelvic 2.6 x 2.2 cm mesenteric mass axial image [address] able. OSSEOUS STRUCTURES: Moderate to severe disc space narrowing with vacuum disc phenomenon L5-S1 level. Grade 1 anterolisthesis L4 on L5. Partial visualization of fusion plate lower cervical spine. Underly ing S-shaped scoliosis. OTHER: Moderate calcified plaque of the aorta extends into branch vessels. Small ventral wall hernia containing fat and tiny mesenteric vessels with wide neck axial image 73 unchanged from prior studies . IMPRESSION: 1. Stable upper pelvic 2.6 cm mesenteric adenopathy or neoplasm. No new or enlarging masses or nodule s noted. No significant change from most recent prior CT.
[2023-08-18 05:29] LABS: HCT 23.8 % (34.0-46.0); HGB 7.7 gm/dL (11.4-16.0); MCH 30.3 pg (25.0-35.0); MCHC 32.2 g/dL (31.0-37.0); MCV 94.2 fL (80.0-100.0); Mean Platelet Volume 10.8; Platelet Count 78 k/uL (150-450); RBC 2.53 m/uL (3.80-5.40); RDW 15.4 % (11.5-15.5); WBC 2.5 k/uL (3.8-10.6)
[2023-08-18 05:53] LABS: ALT 21 U/L (4-34); AST 36 U/L (14-36); African American GFR (CKD) 55 (>60 ml/min/1.73 sqM); Albumin 3.1 g/dL (3.5-5.0); Alkaline Phosphatase 82 U/L (38-126); Anion Gap 7 mmol/L; Blood Urea Nitrogen 24 mg/dL (7-17); Calcium 8.3 mg/dL (8.4-10.2); Carbon Dioxide 29 mmol/L (22-30); Chloride 102 mmol/L (98-107); Glucose 104 mg/dL (74-99); Non-African American GFR(CKD) 48 (>60 ml/min/1.73 sqM); Potassium 3.5 mmol/L (3.5-5.1); Sodium 138 mmol/L (137-145); Total Bilirubin 0.7 mg/dL (0.2-1.3); Total Protein 6.1 g/dL (6.3-8.2)
[2023-08-18 07:05] LABS: Eosinophils # (M) 0.08 k/uL (0-0.7); Lymphocytes # (M) 0.88 k/uL (1.0-4.8); Monocytes # (M) 0.18 k/uL (0-1.0); Neutrophils # (M) 1.38 k/uL (1.3-7.7); Neutrophils % (M) 55 %; Nucleated Red Blood Cells 0 /100 WBC (0-0); RBC Morphology Normal; Total Cells Counted 100
[2023-08-18 07:21] LABS: Glucose,Whole Blood 114 mg/dL (70-110)
[2023-08-18] MEDS: amLODIPine 10 MG TAB PO SCH (08:48)
[2023-08-18 12:19] LABS: Glucose,Whole Blood 150 mg/dL (70-110)
--- NOTE | 2023-08-18 13:46 | P.PN ---
Subjective Progress Note Date: 08/18/23 This is an 87-year-old female with a previous medical history significant for coronary artery disease status post CABG times 07/2004, hypertension and hypertensive cardiovascular disease, hyperlipidemia, diabetes mellitus type 2 with diabetic polyneuropathy, history of carcinoid tumor status post partial colectomy history of vascular dementia without behavioral disturbances, patient was seen in the office last back in July about a month ago with increased swelling in both lower extremities and significant weight loss, patient has been following with hematology oncology on a regular basis, due to her carcinoid tumor, patient apparently presented to my office on July 22, 2023 with increased swelling in both lower extremities she was sent to the ER for evaluation by venous Doppler that was negative for deep venous thrombosis, she was placed on diuretics, and the patient's health has been declining over the last few month, she is forgetting to take her insulin, she lives with her son who is the primary caregiver for her, but he has to run out to do some errands, patient has not been eating much today she was extremely weak and she could not do anything on her own, with increased swelling both lower extremities she appears pale, she was seen in the emergency department at [facility], she was found to have pancytopenia with a low white cells and her hemoglobin was 7.1 and the platelet count was 75,000, this is a new for the patient, patient also had a chest x-ray that showed bilateral pleural effusions with pulmonary vascular congestion suggestive of acute diastolic heart failure, patient was started on IV diuretics in the form of Lasix 40 mg IV push every 12 hours, and cardiology consultation was obtained from the patient as well as hematology oncology consultation due to her pancytopenia, patient also has been extremely weak with recurrent falls, she will be seen and evaluated by physical therapy and Occupational Therapy for possible subacute rehabilitation. Patient is DO NOT RESUSCITATE at this time /. Patient seen and examined. Swelling of legs has improved. Denies any shortness of breath at rest 08/17. Patient seen and examined. 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 Labs done showed WBC 2.5, hemoglobin 7.7, platelet count 78, sodium 138, potassium 3.5, BUN 24, creatinine 1.06 REVIEW OF SYSTEMS: CONSTITUTIONAL: No fever, no malaise,. CARDIOVASCULAR: No chest pain, no palpitations, no syncope. PULMONARY: No shortness of breath, no cough, GASTROINTESTINAL: No diarrhea, no nausea, no vomiting, no abdominal pain. NEUROLOGICAL: No headaches, no weakness, PHYSICAL EXAMINATION: GENERAL: The patient is alert and oriented x3, not in any acute distress. Well developed, well nourished. HEENT: Pupils are round and equally reacting to light. EOMI. No scleral icterus. No conjunctival pallor. Normocephalic, atraumatic. No pharyngeal erythema. No thyromegaly. CARDIOVASCULAR: S1 and S2 present. No murmurs, rubs, or gallops. PULMONARY: Chest is clear to auscultation, no wheezing or crackles. ABDOMEN: Soft, nontender, nondistended, normoactive bowel sounds. No palpable organomegaly. MUSCULOSKELETAL: No joint swelling or deformity. EXTREMITIES: No cyanosis, clubbing, or pedal edema. NEUROLOGICAL: Gross neurological examination did not reveal any focal deficits. SKIN: No rashes. Assessment and plan 1. Acute on chronic diastolic heart failure. Monitor vital sign Monitor CBC Monitor CMP Strict I's and O's, daily weights, Lasix 40 mg IV push every 12 hours continue patient on metoprolol 50 mg orally twice every day, continue patient on ramipril 10 mg orally twice every day as well, continue Jardiance 10 mg once every day Cardiology following 2. Pancytopenia. Vitamin B12 deficiency Monitor CBC Continue vitamin B12 injections Hematology oncology following 3. Coronary artery disease status post coronary artery bypass graft. Continue metoprolol 50 mg orally twice every day, ramipril 10 mg orally twice every day, aspirin 81 mg once every day, continue rosuvastatin 20 mg orally once every day, isosorbide mononitrate 30 mg orally once every day. 4. Hypertension and hypertensive cardiovascular disease. Continue metoprolol 50 mg orally twice every day, ramipril 10 mg orally twice every day, hydralazine 50 mg orally twice every day. Monitor the patient blood pressure very closely. 5. Mixed hyperlipidemia. Continue rosuvastatin 6. Diabetes mellitus type 2. Monitor blood sugar levels, continue current insulin regimen 7. GERD. Continue patient on pantoprazole 40 mg orally once every day. 8. Osteoarthritis. Continue current pain management with hydrocodone as needed. 9. Diabetic polyneuropathy. Continue gabapentin 100 mg orally twice every day. 10. DVT prophylaxis. Bilateral knee-high MARISELA hose to hold off Lovenox due to the patient pancytopenia. 11. GI prophylaxis continue patient on Protonix 40 mg orally once every day. 12. Medical debility. Physical therapy evaluation 13. Vascular dementia without behavioral disturbances. Monitor the patient very closely. Labs and medication were reviewed.. Continue same treatment. Continue with symptomatic treatment. Resume home medication. Monitor labs and vitals. DVT and GI prophylaxis. Further recommendations as per clinical course of the patient Dictation was produced using [employer] dictation software. please excuse any grammatical, word or spelling errors. Objective - Vital Signs Vital signs: Vital Signs Temp 97.6 F 08/18/23 07:35 Pulse 68 08/18/23 07:35 Resp 16 08/18/23 07:35 BP 162/56 08/18/23 07:35 Pulse Ox 92 L 08/18/23 07:35 FiO2 Intake & Output 08/17/23 08/18/23 08/18/23 18:59 06:59 18:59 Intake Total 120 Output Total 1075 900 Balance -1075 -780 Weight 55.5 kg Intake: Oral 120 Output: Urine 1075 900 Other: Voiding Method Indwelling Catheter Indwelling Catheter - Labs CBC & Chem 7: 08/18/23 04:59 08/18/23 04:59 Labs: Abnormal Lab Results - Last 24 Hours (Table) 08/17/23 08/17/23 08/17/23 Range/Units 08:31 08:31 12:24 WBC 2.9 L (3.8-10.6) k/uL RBC 2.59 L (3.80-5.40) m/uL Hgb 8.0 L (11.4-16.0) gm/dL Hct 24.2 L (34.0-46.0) % RDW 15.6 H (11.5-15.5) % Plt Count 74 L (150-450) k/uL Lymphocytes # (Manual) 0.67 L (1.0-4.8) k/uL Metamyelocytes # (Man) 0.03 H (0) k/uL BUN 21 H (7-17) mg/dL Creatinine (0.52-1.04) mg/dL Glucose (74-99) mg/dL POC Glucose (mg/dL) 137 H (70-110) mg/dL Calcium (8.4-10.2) mg/dL Iron (50-170) UG/DL Transferrin (204.0-354.0) mg/dL AST 37 H (14-36) U/L Total Protein (6.3-8.2) g/dL Albumin 3.4 L (3.5-5.0) g/dL 08/17/23 08/17/23 08/17/23 Range/Units 12:52 17:19 18:09 WBC (3.8-10.6) k/uL RBC (3.80-5.40) m/uL Hgb (11.4-16.0) gm/dL Hct (34.0-46.0) % RDW (11.5-15.5) % Plt Count (150-450) k/uL Lymphocytes # (Manual) (1.0-4.8) k/uL Metamyelocytes # (Man) (0) k/uL BUN (7-17) mg/dL Creatinine (0.52-1.04) mg/dL Glucose (74-99) mg/dL POC Glucose (mg/dL) 170 H 164 H (70-110) mg/dL Calcium (8.4-10.2) mg/dL Iron 46 L (50-170) UG/DL Transferrin 175.0 L (204.0-354.0) mg/dL AST (14-36) U/L Total Protein (6.3-8.2) g/dL Albumin (3.5-5.0) g/dL 08/17/23 08/18/23 08/18/23 Range/Units 19:58 04:59 04:59 WBC 2.5 L (3.8-10.6) k/uL RBC 2.53 L (3.80-5.40) m/uL Hgb 7.7 L (11.4-16.0) gm/dL Hct 23.8 L (34.0-46.0) % RDW (11.5-15.5) % Plt Count 78 L (150-450) k/uL Lymphocytes # (Manual) 0.88 L (1.0-4.8) k/uL Metamyelocytes # (Man) (0) k/uL BUN 24 H (7-17) mg/dL Creatinine 1.06 H (0.52-1.04) mg/dL Glucose 104 H (74-99) mg/dL POC Glucose (mg/dL) 176 H (70-110) mg/dL Calcium 8.3 L (8.4-10.2) mg/dL Iron (50-170) UG/DL Transferrin (204.0-354.0) mg/dL AST (14-36) U/L Total Protein 6.1 L (6.3-8.2) g/dL Albumin 3.1 L (3.5-5.0) g/dL 08/18/23 Range/Units 07:00 WBC (3.8-10.6) k/uL RBC (3.80-5.40) m/uL Hgb (11.4-16.0) gm/dL Hct (34.0-46.0) % RDW (11.5-15.5) % Plt Count (150-450) k/uL Lymphocytes # (Manual) (1.0-4.8) k/uL Metamyelocytes # (Man) (0) k/uL BUN (7-17) mg/dL Creatinine (0.52-1.04) mg/dL Glucose (74-99) mg/dL POC Glucose (mg/dL) 114 H (70-110) mg/dL Calcium (8.4-10.2) mg/dL Iron (50-170) UG/DL Transferrin (204.0-354.0) mg/dL AST (14-36) U/L Total Protein (6.3-8.2) g/dL Albumin (3.5-5.0) g/dL
--- NOTE | 2023-08-18 14:13 | P.PN ---
Subjective Progress Note Date: 08/18/23 Principal diagnosis: Pancytopenia -No acute events overnight -Notes feeling fatigue, but denies any other new signs or symptoms -Does not seem to remember me from yesterday's visit Objective - Vital Signs Vital signs: Vital Signs Temp 99.3 F 08/18/23 12:43 Pulse 64 08/18/23 12:43 Resp 17 08/18/23 12:43 BP 159/57 08/18/23 12:43 Pulse Ox 93 L 08/18/23 12:43 FiO2 Intake & Output 08/17/23 08/18/23 08/18/23 18:59 06:59 18:59 Intake Total 120 Output Total 1075 900 Balance -1075 -780 Weight 55.5 kg Intake: Oral 120 Output: Urine 1075 900 Other: Voiding Method Indwelling Catheter Indwelling Catheter Indwelling Catheter # Bowel Movements 1 - Constitutional General appearance: Present: cooperative, no acute distress - EENT Eyes: Present: EOMI - Respiratory Respiratory: bilateral: other (Decreased inspiratory crackles) - Cardiovascular Rhythm: regular - Peripheral edema leg Peripheral Edema: bilateral: Trace - Integumentary Integumentary: Present: pale. Absent: rash - Neurologic Neurologic: Present: CNII-XII intact. Absent: focal deficits - Labs CBC & Chem 7: 08/18/23 04:59 08/18/23 04:59 Labs: Abnormal Lab Results - Last 24 Hours (Table) 08/17/23 08/17/23 08/17/23 Range/Units 12:52 17:19 18:09 WBC (3.8-10.6) k/uL RBC (3.80-5.40) m/uL Hgb (11.4-16.0) gm/dL Hct (34.0-46.0) % Plt Count (150-450) k/uL Lymphocytes # (Manual) (1.0-4.8) k/uL BUN (7-17) mg/dL Creatinine (0.52-1.04) mg/dL Glucose (74-99) mg/dL POC Glucose (mg/dL) 170 H 164 H (70-110) mg/dL Calcium (8.4-10.2) mg/dL Iron 46 L (50-170) UG/DL Transferrin 175.0 L (204.0-354.0) mg/dL Total Protein (6.3-8.2) g/dL Albumin (3.5-5.0) g/dL 08/17/23 08/18/23 08/18/23 Range/Units 19:58 04:59 04:59 WBC 2.5 L (3.8-10.6) k/uL RBC 2.53 L (3.80-5.40) m/uL Hgb 7.7 L (11.4-16.0) gm/dL Hct 23.8 L (34.0-46.0) % Plt Count 78 L (150-450) k/uL Lymphocytes # (Manual) 0.88 L (1.0-4.8) k/uL BUN 24 H (7-17) mg/dL Creatinine 1.06 H (0.52-1.04) mg/dL Glucose 104 H (74-99) mg/dL POC Glucose (mg/dL) 176 H (70-110) mg/dL Calcium 8.3 L (8.4-10.2) mg/dL Iron (50-170) UG/DL Transferrin (204.0-354.0) mg/dL Total Protein 6.1 L (6.3-8.2) g/dL Albumin 3.1 L (3.5-5.0) g/dL 08/18/23 08/18/23 Range/Units 07:00 11:58 WBC (3.8-10.6) k/uL RBC (3.80-5.40) m/uL Hgb (11.4-16.0) gm/dL Hct (34.0-46.0) % Plt Count (150-450) k/uL Lymphocytes # (Manual) (1.0-4.8) k/uL BUN (7-17) mg/dL Creatinine (0.52-1.04) mg/dL Glucose (74-99) mg/dL POC Glucose (mg/dL) 114 H 150 H (70-110) mg/dL Calcium (8.4-10.2) mg/dL Iron (50-170) UG/DL Transferrin (204.0-354.0) mg/dL Total Protein (6.3-8.2) g/dL Albumin (3.5-5.0) g/dL Assessment and Plan (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 Code(s): C7A.8 - OTHER MALIGNANT NEUROENDOCRINE TUMORS SNOMED Code(s): 094614556 (2) Pancytopenia Current Visit: Yes Status: Acute Code(s): D61.818 - OTHER PANCYTOPENIA SNOMED Code(s): 760584166 Plan: #Pancytopenia -Presented with mild neutropenia with ANC of 1.2, normocytic anemia, and thrombocytopenia -Workup was significant with low vitamin B12 of 201 with normal folate, elevated ferritin of 370, and an inappropriately normal reticulocyte count of 1.1 -Hemolysis labs were negative with elevated IgG and pending SPEP and immunofixation -Pancytopenia could be due to vitamin B12 deficiency along with acute inflammation from heart failure exacerbation -She likely has component of vitamin B12 deficiency due to decreased oral intake and possibly from prior bowel surgery for neuroendocrine carcinoma causing impaired absorption -Today is day 2 of vitamin B12 1000 mcg intramuscular injection daily -Fibrinogen, thyroid profile, and iron saturation are within normal limits -She likely has elevated IgG that is not monoclonal secondary to inflammation from heart failure exacerbation -Follow-up on serum protein electrophoresis, immunofixation, and serum copper -Due to her multiple medical comorbidities, testing with bone marrow biopsy would be of limited benefit. Discussed with the daughter at bedside and agreed #Neuroendocrine carcinoma of the small bowel -Resected on 09/25/2013 consistent with well-differentiated neuroendocrine carcinoma and 4 of 8 regional lymph nodes being involved. Pathologic staging was consistent with IIIB (T3N1M0) -Dotatate PET/CT on 05/30/2020 revealed suspicious uptake in the lower abdomen/lymph node measuring 2.3 cm at the anastomosis, concerning for recurrence -Surveillance imaging had been performed, most recently on 02/18/2023, revealing stable soft tissue lesion in the mesentery -CT abdomen/pelvis obtained due to noted weight loss noted stable findings with no other acute process -No additional workup required at this time Leticia Corado MD
[2023-08-18 17:38] LABS: Glucose,Whole Blood 161 mg/dL (70-110)
[2023-08-18 20:45] LABS: Glucose,Whole Blood 231 mg/dL (70-110)
[2023-08-19] MEDS: ONDANSETRON 4 MG/2 ML VIAL IVP PRN (04:15)
[2023-08-19 07:20] LABS: Glucose,Whole Blood 145 mg/dL (70-110)
[2023-08-19 12:32] LABS: Glucose,Whole Blood 107 mg/dL (70-110)
[2023-08-19] MEDS: FUROSEMIDE 20 MG TAB PO SCH (14:04)
[2023-08-19 15:21] LABS: Free Kappa Lt Chain Qnt, Serum 6.99 mg/dL (0.33-1.94); Free Lambda Lt Chain Qnt, Seru 4.73 mg/dL (0.57-2.63)
--- NOTE | 2023-08-19 15:21 | PN ---
PROGRESS NOTE SUBJECTIVE: This lady has been admitted with what seems to be pancytopenia exacerbation of diastolic heart failure, seen by Dr. Busby. She is doing better today. Her breathing is easier. She is resting comfortably. I am recommending we switch her from IV to oral Lasix 40 mg in the morning and 20 mg in the afternoon. Add Aldactone 12.5 mg daily. OBJECTIVE: VITAL SIGNS: Stable. NECK: JVD 1 cm, no carotid bruit. HEART: S1-S2 heard normally, short systolic murmur. LUNGS: Revealed decent air entry. ABDOMEN: Unchanged. EXTREMITIES: Lower extremities unchanged. MMODL / IJN: [id number] /
[2023-08-19 17:23] LABS: Glucose,Whole Blood 183 mg/dL (70-110)
--- NOTE | 2023-08-19 19:31 | P.PN ---
Subjective Progress Note Date: 08/19/23 HISTORY OF PRESENT ILLNESS: This is an 87-year-old female with a previous medical history signi ficant for coronary artery disease status post CABG times 07/2004, hypertension and hypertensive cardiovascular disease, hyperlipidemia, diabetes mellitus type 2 with diabetic polyneuropathy, history of carcinoid tumor status post partial colectomy history of vascular dementia without behavioral disturbances, patient was seen in the office last back in July about a month ago with increased swelling in both lower extremities and significant weight loss, patient has been following with hematology oncology on a regular basis, due to her carcinoid tumor, patient apparently presented to my office on July 22, 2023 with increased swelling in both lower extremities she was sent to the ER for evalua tion by venous Doppler that was negative for deep venous thrombosis, she was placed on diuretics, and the patient's health has been declining over the last few month, she is forgetting to take her insulin, she lives with her son who is the primary caregiver for her, but he has to run out to do some errands, patient has not been eating much today she was extremely weak and she could not do anything on her own, with increased swelling both lower extremities she appears pale, she was seen in the emergency department at [facility], she was found to have pancytopenia with a low white cells and her hemoglobin was 7.1 and the platelet count was 75,000, this is a new for the patient, patient also had a chest x-ray that showed bilateral pleural effusions with pulmonary vascular congestion suggestive of acute diastolic heart failure, patient was started on IV diuretics in the form of Lasix 40 mg IV push every 12 hours, and cardiology consultation was obtained from the patient as well as hematology oncology consultation due to her pancytopenia, patient also has been extremely weak with recurrent falls, she will be seen and evaluated by physical therapy and Occupational Therapy for possible subacute rehabilitation. Patient is DO NOT RESUSCITATE at this time 08/16. Patient seen and examined. Swelling of legs has improved. Denies any shortness of breath at rest 08/17. Patient seen and examined. 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 Labs done showed WBC 2.5, hemoglobin 7.7, platelet count 78, sodium 138, potassium 3.5, BUN 24, creatinine 1.06 08/18: Patient is sitting up in bed she appears to be extremely pale today, she has very poor appetite, she appears to be a bit confused, she was seen earlier by hematology oncology patient underwent a CT scan of the chest abdomen pelvis that did show evidence of stable disease in the right lower quadrant, patient was started on B12 injection due to a low B12 likely causing her pancytopenia at this time, light chain kappa and lambda were elevated, serum protein electrophoresis is pending, we will continue to treat the patient conservatively at this time, continue to work with the patient likely will need to go for subacute rehabilitation down the line. Her daughter and her were at the bedside they were updated about her current condition. REVIEW OF SYSTEMS: Constitutional: No documented fever, no chills, no night sweats. No weight change. No weakness, fatigue or lethargy. No daytime sleepiness. EENT: No headache. No blurred vision or double vision, no loss of vision. No loss of Hearing, no ringing in the ears, no dizziness. No nasal drainage or congestion. No epistaxis. No sore throat. Lungs: No shortness of breath, no cough, no sputum production. No wheezing. Reports dyspnea with activity. Cardiovascular: No chest pain, no lower extremity edema. No palpitations. No paroxysmal nocturnal dyspnea. No orthopnea. No lightheadedness or dizziness. No syncopal episodes. Abdominal: Reports abdominal pain. No nausea, vomiting. No diarrhea. No constipation. No bloody or tarry stools reports loss of appetite. Genitourinary: No dysuria, increased frequency, urgency. No urinary retention. Musculoskeletal: No myalgias. positive for muscle weakness, positive for gait dysfunction, no frequent falls. No back pain. No neck pain. Integumentary: No wounds, no lesions. No rash or pruritus. No unusual brui sing. No change in hair or nails. Neurologic: No aphasia. No facial droop. change in mentation. No head injury. No headache. No paralysis. No paresthesia. Psychiatric: positive for depression. No anxiety. No mood swings. Endocrine: abnormal blood sugars. positive for weight change. PHYSICAL EXAMINATION: General: This is an 87-year-old female who appears to be ill pale no acute distress. HEENT: Head is atraumatic, normocephalic, pupils were equal round reactive to light and recommendation, extraocular muscle movement were intact, sclera nonicteric, conjunctivae were pale, mucous membranes of the mouth are somewhat dry. Neck: Supple, no JVP, normal carotid upstroke bilaterally, no lymphadenopathy. Chest: Decreased breath sounds at the bases, few rhonchi, no expiratory wheezes, no chest wall tenderness, no intercostal retractions. Heart: First heart sound is normal, second heart sounds normal there is systolic ejection murmur 2/6 located in the left sternal border. Abdomen: Soft, mild tenderness to the right lower quadrant nondistended, positive bowel sounds. Extremities: There is no edema no calf tenderness DP +2 bilaterally. Neurologic examination: Patient is awake alert and oriented x1 cranial nerves II-12 appear grossly intact, muscle power were 3 out of 5 in upper extremities and 3 out of 5 in bilateral lower extremities, deep tendon reflexes normal bilat erally. ASSESSMENT AND PLAN: 1. Acute on chronic diastolic heart failure. Continue patient on Lasix 40 mg in the morning and 20 mg in the afternoon, spironolactone 12.5 mg once every day, Farxiga 5 mg once every day, metoprolol 50 mg orally twice every day, lisinopril 40 mg orally twice every day, monitor the patient input and output and daily weight. 2. Pancytopenia. Likely due to combination of vitamin B12 deficiency as well as the state of inflammatory reaction and due to chronic heart failure monitor the the patient very closely hide patient has been getting vitamin B12 1000 mcg IM once every day will be done tomorrow morning. Hematology oncology consultation appreciated. 3. Coronary artery disease status post coronary artery bypass graft. Continue patient on metoprolol 50 mg orally twice every day, continue patient on lisinopril 40 mg mg orally twice every day, aspirin 81 mg once every day, continue rosuvastatin 20 mg orally once every day, continue patient on isosorbid e mononitrate 30 mg orally once every day. 4. Hypertension and hypertensive cardiovascular disease. Continue metoprolol 50 mg orally twice every day, lisinopril 40 mg orally twice every day, hydral azine 50 mg orally twice every day. Monitor the patient blood pressure very closely. 5. Mixed hyperlipidemia. Continue patient on rosuvastatin 20 mg once every day. Monitor lipid panel, keep LDL 55-70. 6. Diabetes mellitus type 2. Continue Lantus 21 units at bedtime along with Humalog 5 units before each meal along with a sliding scale insulin, continue Farxiga 5 mg orally once every day. Check blood glucose level before each meal and at bedtime 7. GERD. Continue patient on pantoprazole 40 mg orally once every day. 8. Osteoarthritis. Continue current pain management with hydrocodone as needed. 9. Diabetic polyneuropathy. Continue gabapentin 100 mg orally twice every day. 10. DVT prophylaxis. Bilateral knee-high MARISELA hose to hold off Lovenox due to the patient pancytopenia. 11. GI prophylaxis continue patient on Protonix 40 mg orally once every day. 12. Medical debility. Physical therapy evaluation 13. Vascular dementia without behavioral disturbances. Monitor the patient very closely. 14. home health care worker consultation for discharge planning. 15. Patient is no code. Objective - Vital Signs Vital signs: Vital Signs Temp 99.6 F 08/19/23 13:53 Pulse 68 08/19/23 13:53 Resp 16 08/19/23 15:47 BP 152/51 08/19/23 13:53 Pulse Ox 95 08/19/23 15:47 FiO2 Intake & Output 08/19/23 08/19/23 08/20/23 06:59 18:59 06:59 Intake Total 540 Output Total 900 375 Balance -360 -375 Weight 53 kg Intake: Oral 540 Output: Urine 900 375 Other: Voiding Method Indwelling Catheter Indwelling Catheter # Bowel Movements 1 - Labs CBC & Chem 7: 08/18/23 04:59 08/18/23 04:59 Labs: Abnormal Lab Results - Last 24 Hours (Table) 08/16/23 08/16/23 08/18/23 Range/Units 16:30 16:30 20:43 POC Glucose (mg/dL) 231 H (70-110) mg/dL Free [place] LC, Quant 6.99 H (0.33-1.94) mg/dL Free Lambda LC, Quant 4.73 H (0.57-2.63) mg/dL Crossmatch See Detail 08/19/23 08/19/23 Range/Units 07:15 17:22 POC Glucose (mg/dL) 145 H 183 H (70-110) mg/dL Free [place] LC, Quant (0.33-1.94) mg/dL Free Lambda LC, Quant (0.57-2.63) mg/dL Crossmatch
[2023-08-19 20:27] LABS: Glucose,Whole Blood 241 mg/dL (70-110)
[2023-08-19] MEDS: INSULIN DETEMIR (LEVEMIR) 100 UNIT/ML SYR SQ SCH (20:43)
[2023-08-20] MEDS: ACETAMINOPHEN TAB 325 MG TAB PO PRN (03:13)
[2023-08-20 07:04] LABS: Glucose,Whole Blood 117 mg/dL (70-110)
[2023-08-20 07:48] LABS: ALT 23 U/L (4-34); AST 37 U/L (14-36); African American GFR (CKD) 38 (>60 ml/min/1.73 sqM); Albumin 3.2 g/dL (3.5-5.0); Albumin/Globulin Ratio 1.1; Alkaline Phosphatase 89 U/L (38-126); Anion Gap 7 mmol/L; Blood Urea Nitrogen 37 mg/dL (7-17); Calcium 8.3 mg/dL (8.4-10.2); Carbon Dioxide 31 mmol/L (22-30); Chloride 103 mmol/L (98-107); Glucose 106 mg/dL (74-99); Non-African American GFR(CKD) 33 (>60 ml/min/1.73 sqM); Potassium 3.4 mmol/L (3.5-5.1); Sodium 141 mmol/L (137-145); Total Bilirubin 0.9 mg/dL (0.2-1.3); Total Protein 6.2 g/dL (6.3-8.2)
[2023-08-20 08:09] LABS: HCT 21.5 % (34.0-46.0); HGB 7.3 gm/dL (11.4-16.0); MCH 30.6 pg (25.0-35.0); MCHC 33.8 g/dL (31.0-37.0); MCV 90.4 fL (80.0-100.0); Mean Platelet Volume 12.5; RBC 2.38 m/uL (3.80-5.40); RDW 15.7 % (11.5-15.5); WBC 4.2 k/uL (3.8-10.6)
[2023-08-20 08:11] LABS: Platelet Count 75 k/uL (150-450)
[2023-08-20] MEDS: FUROSEMIDE 40 MG TAB PO SCH (08:11)
[2023-08-20] MEDS: SPIRONOLACTONE 25 MG TAB PO SCH (08:17)
[2023-08-20 09:21] LABS: Band Neutrophils % 2 %; Eosinophils # (M) 0.08 k/uL (0-0.7); Lymphocytes # (M) 0.97 k/uL (1.0-4.8); Monocytes # (M) 0.34 k/uL (0-1.0); Neutrophils % (M) 65 %; Nucleated Red Blood Cells 0 /100 WBC (0-0); Total Cells Counted 100
--- NOTE | 2023-08-20 12:15 | P.PN ---
Progress Note - Text Progress Note Date: 08/20/23 Patient has never been on any treatment for her small bowel neuroendocrine tumor, there are no plans for treatment. Patient is being worked up for bicytopenia, much of the laboratory results are still pending. Patient must be discharged from rehab prior to any discussions about treatment, that is, if any treatment is necessary.
[2023-08-20 12:27] LABS: Glucose,Whole Blood 131 mg/dL (70-110)
[2023-08-20] MEDS: POTASSIUM CHLORIDE ER 20 MEQ TAB.ER PO STA (12:47)
[2023-08-20 17:24] LABS: Glucose,Whole Blood 112 mg/dL (70-110)
[2023-08-20 20:10] LABS: Glucose,Whole Blood 154 mg/dL (70-110)
--- NOTE | 2023-08-20 20:27 | PN ---
PROGRESS NOTE SUBJECTIVE: This lady seems a little bit more lethargic today. Her pancytopenia seems to have improved, white count has come up. Her breathing is also better. She is on oral Lasix and Aldactone. OBJECTIVE: VITALS: Stable. HEART: S1, S2 heard normally, short systolic murmur. LUNGS: Revealed actually improved air entry. ABDOMEN: Unchanged. EXTREMITIES: Lower extremity exam is unchanged. From a cardiac standpoint, I have no other new suggestions. We will continue to see her as needed. She can be discharged whenever okay by the admitting doctor. Her laboratory data from today suggests the potassium is 3.4. We will give 1 supplement of about 20 mEq. Discussed my thoughts with the patient. MMODL / IJN: [id number] /
[2023-08-21 07:26] LABS: Glucose,Whole Blood 97 mg/dL (70-110)
[2023-08-21 12:05] LABS: Glucose,Whole Blood 105 mg/dL (70-110)
[2023-08-21 13:53] VITALS: TEMP 98.6
[2023-08-21 14:38] VITALS: BMI 20.2
[2023-08-21 14:39] VITALS: BP 121/44; PULSE 63; RESP 17
--- NOTE | 2023-08-21 14:44 | CDI ---
Date: 08/21/2023 From: Candi Rodrigues Phone: [phone] Admit Date: 08/16/2023 03:19:00 PM Patient Name: Romelia Pickett Visit Number: [id number] Discharge Date: ATTENTION: The Clinical Documentation Specialists (CDI) and [facility] Coding Staff appreciate your assistance in clarifying documentation. Please respond to the clarification below the line at the bottom and electronically sign. The CDI & [facility] Coding staff will review the response and follow-up if needed. Please note: Queries are made part of the Legal Health Record. If you have any questions, please contact the author of this message via ITS. Dr. Kenya Block The Registered Dietitian assessment on 08/20 indicates this patient meets criteria for acute severe malnutrition. Based on this information and the findings below, is there an additional diagnosis that is clinically appropriate for this patient? History/Risk Factors: CHF, CAD, HTN DM2, vascular dementia who presents with weakness, pancytopenia and acute on chronic diastolic heart failure, medical debility Clinical Indicators: 08/20 BMI: 20.2 Patient Weight: 51.7kg Patient Height: 5ft 3in 08/20 RD Consult Assessment, Nutrition Diagnosis: "Malnutrition, acute, severe, related to physiological condition causing diminished intake" 08/15, 08/17, 08/19 Total Protein: 7.4, 6.1, 6.2 Treatment: RD Assessment, Recommends Consistent CHO diet, Glucerna BID Is there an additional diagnosis that is clinically appropriate for this patient? [ X] Severe Protein-Calorie Malnutrition [ ] No additional diagnosis/Not clinically significant [ ] Other condition, please specify [ ] Unable to Determine MTDD
--- NOTE | 2023-08-21 15:50 | P.DS ---
Providers Date of admission: 08/16/23 15:19 Expected date of discharge: 08/21/23 Attending physician: Kenya Block Consults: 08/16/23 15:00 Consult Physician Urgent Consulting Provider: Tom Braun Consult Reason/Comments: Pancytopenia Do you want consulting provider notified?: Yes Consult Physician Urgent Consulting Provider: Fazal Busby Consult Reason/Comments: CHF exacerbation Do you want consulting provider notified?: Yes Primary care physician: Kenya Block Hospital Course: HISTORY OF PRESENT ILLNESS: This is an 87-year-old female with a previous medical history significant for coronary artery disease status post CABG times 07/2004, hypertension and hypertensive cardiovascular disease, hyperlipidemia, diabetes mellitus type 2 with diabetic polyneuropathy, history of carcinoid tumor status post partial colectomy history of vascular dementia without behavioral disturbances, patient was seen in the office last back in July about a month ago with increased swelling in both lower extremities and significant weight loss, patient has been following with hematology oncology on a regular basis, due to her carcinoid tumor, patient apparently presented to my office on July 22, 2023 with increased swelling in both lower extremities she was sent to the ER for evaluation by venous Doppler that was negative for deep venous thrombosis, she was placed on diuretics, and the patient's health has been declining over the last few month, she is forgetting to take her insulin, she lives with her son who is the primary caregiver for her, but he has to run out to do some errands, patient has not been eating much today she was extremely weak and she could not do anything on her own, with increased swelling both lower extremities she appears pale, she was seen in the emergency department at [facility], she was found to have pancytopenia with a low white cells and her hemoglobin was 7.1 and the platelet count was 75,000, this is a new for the patient, patient also had a chest x-ray that showed bilateral pleural effusions with pulmonary vascular congestion suggestive of acute diastolic heart failure, patient was started on IV diuretics in the form of Lasix 40 mg IV push every 12 hours, and cardiology consultation was obtained from the patient as well as hematology oncology consultation due to her pancytopenia, patient also has been extremely weak with recurrent falls, she will be seen and evaluated by physical therapy and Occupational Therapy for possible subacute rehabilitation. Patient is DO NOT RESUSCITATE at this time 08/16. Patient seen and examined. Swelling of legs has improved. Denies any shortness of breath at rest 08/17. Patient seen and examined. 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 Labs done showed WBC 2.5, hemoglobin 7.7, platelet count 78, sodium 138, potassium 3.5, BUN 24, creatinine 1.06 08/18: Patient is sitting up in bed she appears to be extremely pale today, she has very poor appetite, she appears to be a bit confused, she was seen earlier by hematology oncology patient underwent a CT scan of the chest abdomen pelvis that did show evidence of stable disease in the right lower quadrant, patient was started on B12 injection due to a low B12 likely causing her pancytopenia at this time, light chain kappa and lambda were elevated, serum protein electrophoresis is pending, we will continue to treat the patient conservatively at this time, continue to work with the patient likely will need to go for subacute rehabilitation down the line. Her daughter and her were at the bedside they were updated about her current condition. 08/20: Patient continues to eat poorly with decreased appetite consuming less than 25% of her needs. She is followed by dietitian. Patient is pleasantly confused. No new concerns today. Discharge planning in place for subacute rehab at [facility]. Insurance authorization has been obtained. Patient will be discharged today once all arrangements are completed. DISCHARGE DIAGNOSES: 1. Acute on chronic diastolic heart failure. 2. Pancytopenia. Likely due to combination of vitamin B12 deficiency as well as the state of inflammatory reaction and due to chronic heart failure. 3. Coronary artery disease status post coronary artery bypass graft. 4. Hypertension and hypertensive cardiovascular disease. 5. Mixed hyperlipidemia. 6. Diabetes mellitus type 2. 7. GERD. 8. Osteoarthritis. 9. Diabetic polyneuropathy. 10. Vascular dementia without behavioral disturbances. 11. Severe protein calorie malnutrition. 12. Medical debility. Physical therapy evaluation Greater than 35 minutes was utilized and coordinating patient's discharge. Impression and plan of care have been directed as dictated by the signing physician. Keisha Lew nurse practitioner acting as scribe for signing physician. Plan - Discharge Summary Discharge Rx Participant: Yes New Discharge Prescriptions: New Furosemide [Lasix] 20 mg PO 1500 tab Furosemide [Lasix] 40 mg PO DAILY tab INSULIN ASPART (NovoLOG) [NovoLOG (formulary)] 5 unit SQ AC-TID each Spironolactone [Aldactone] 12.5 mg PO DAILY tab hydrALAZINE HCL [Apresoline] 25 mg PO BID tab amLODIPine [Norvasc] 10 mg PO DAILY tab Continue ramipriL [Ramipril] 10 mg PO BID Metoprolol Tartrate [Lopressor] 50 mg PO BID Omeprazole 40 mg PO DAILY Empagliflozin [Jardiance] 10 mg PO DAILY Aspirin EC [Ecotrin Low Dose] 81 mg PO DAILY Rosuvastatin [Crestor] 20 mg PO HS Insulin Lispro [humaLOG Kwikpen] See Protocol SQ AC-TID Gabapentin [Neurontin] 100 mg PO BID #6 cap icosapent ethyL [Icosapent Ethyl] 2 gm PO BID Multivitamins, Thera [Multivitamin (formulary)] 1 tab PO HS Changed HYDROcodone/APAP 5-325MG [[place] 5-325] 1 tab PO TID #9 tab Insulin Glargine,Hum.rec.anlog [Lantus Solostar Pen] 21 units SQ HS #0 Discontinued Isosorbide Mononitrate ER [Imdur] 30 mg PO DAILY amLODIPine [Norvasc] 5 mg PO DAILY hydrALAZINE HCL [Apresoline] 50 mg PO BID Discharge Medication List ramipriL [Ramipril] 10 mg PO BID 12/05/18 [History] Metoprolol Tartrate [Lopressor] 50 mg PO BID 04/02/20 [History] Omeprazole 40 mg PO DAILY 04/02/20 [History] Empagliflozin [Jardiance] 10 mg PO DAILY 04/04/20 [History] Aspirin EC [Ecotrin Low Dose] 81 mg PO DAILY 11/28/21 [History] Insulin Lispro [humaLOG Kwikpen] See Protocol SQ AC-TID 11/28/21 [History] Rosuvastatin [Crestor] 20 mg PO HS 11/28/21 [History] icosapent ethyL [Icosapent Ethyl] 2 gm PO BID 11/28/21 [History] Multivitamins, Thera [Multivitamin (formulary)] 1 tab PO HS 08/16/23 [History] Furosemide [Lasix] 20 mg PO 1500 tab 08/21/23 [Rx] Furosemide [Lasix] 40 mg PO DAILY tab 08/21/23 [Rx] Gabapentin [Neurontin] 100 mg PO BID #6 cap 08/21/23 [Rx] HYDROcodone/APAP 5-325MG [[place] 5-325] 1 tab PO TID #9 tab 08/21/23 [Rx] INSULIN ASPART (NovoLOG) [NovoLOG (formulary)] 5 unit SQ AC-TID each 08/21/23 [Rx] Insulin Glargine,Hum.rec.anlog [Lantus Solostar Pen] 21 units SQ HS #0 08/21/23 [Rx] Spironolactone [Aldactone] 12.5 mg PO DAILY tab 08/21/23 [Rx] amLODIPine [Norvasc] 10 mg PO DAILY tab 08/21/23 [Rx] hydrALAZINE HCL [Apresoline] 25 mg PO BID tab 08/21/23 [Rx] Follow up Appointment(s)/Referral(s): Dillan Velázquez MD [STAFF PHYSICIAN] - 6 Weeks (Pt/family to call office for appt once discharged from rehab) Kenya Block MD [Primary Care Provider] - 1 Week (AT [facility]) Discharge Disposition: TRANSFER TO SNF/ECF
--- NOTE | 2023-08-21 17:12 | P.PN ---
Subjective Progress Note Date: 08/20/23 HISTORY OF PRESENT ILLNESS: This is an 87-year-old female with a previous medical history signi ficant for coronary artery disease status post CABG times 07/2004, hypertension and hypertensive cardiovascular disease, hyperlipidemia, diabetes mellitus type 2 with diabetic polyneuropathy, history of carcinoid tumor status post partial colectomy history of vascular dementia without behavioral disturbances, patient was seen in the office last back in July about a month ago with increased swelling in both lower extremities and significant weight loss, patient has been following with hematology oncology on a regular basis, due to her carcinoid tumor, patient apparently presented to my office on July 22, 2023 with increased swelling in both lower extremities she was sent to the ER for evalua tion by venous Doppler that was negative for deep venous thrombosis, she was placed on diuretics, and the patient's health has been declining over the last few month, she is forgetting to take her insulin, she lives with her son who is the primary caregiver for her, but he has to run out to do some errands, patient has not been eating much today she was extremely weak and she could not do anything on her own, with increased swelling both lower extremities she appears pale, she was seen in the emergency department at [facility], she was found to have pancytopenia with a low white cells and her hemoglobin was 7.1 and the platelet count was 75,000, this is a new for the patient, patient also had a chest x-ray that showed bilateral pleural effusions with pulmonary vascular congestion suggestive of acute diastolic heart failure, patient was started on IV diuretics in the form of Lasix 40 mg IV push every 12 hours, and cardiology consultation was obtained from the patient as well as hematology oncology consultation due to her pancytopenia, patient also has been extremely weak with recurrent falls, she will be seen and evaluated by physical therapy and Occupational Therapy for possible subacute rehabilitation. Patient is DO NOT RESUSCITATE at this time 08/16. Patient seen and examined. Swelling of legs has improved. Denies any shortness of breath at rest 08/17. Patient seen and examined. 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 Labs done showed WBC 2.5, hemoglobin 7.7, platelet count 78, sodium 138, potassium 3.5, BUN 24, creatinine 1.06 08/18: Patient is sitting up in bed she appears to be extremely pale today, she has very poor appetite, she appears to be a bit confused, she was seen earlier by hematology oncology patient underwent a CT scan of the chest abdomen pelvis that did show evidence of stable disease in the right lower quadrant, patient was started on B12 injection due to a low B12 likely causing her pancytopenia at this time, light chain kappa and lambda were elevated, serum protein electrophoresis is pending, we will continue to treat the patient conservatively at this time, continue to work with the patient likely will need to go for subacute rehabilitation down the line. Her daughter and her were at the bedside they were updated about her current condition. 08/19: Patient is laying down in bed she appears to be quite weak and tired, she continues to be on 2 L nasal cannula, she denies any chest pain at this time, she has no shortness of breath, she continues to have some abdominal pain, she was seen earlier by hematology oncology, patient continues to be pancytopenic, her hemoglobin down to 7.3, no recommendation for any blood transfusion at this point in time, I spoke with Dr. Mondragon about possibility of bone marrow biopsy but I believe the patient's family are not interested in aggressive or invasive procedures at this point in time, meanwhile we will try to get the patient to subacute rehabilitation REVIEW OF SYSTEMS: Constitutional: No documented fever, no chills, no night sweats. No weight change. No weakness, fatigue or lethargy. No daytime sleepiness. EENT: No headache. No blurred vision or double vision, no loss of vision. No loss of Hearing, no ringing in the ears, no dizziness. No nasal drainage or congestion. No epistaxis. No sore throat. Lungs: No shortness of breath, no cough, no sputum production. No wheezing. Reports dyspnea with activity. Cardiovascular: No chest pain, no lower extremity edema. No palpitations. No paroxysmal nocturnal dyspnea. No orthopnea. No lightheadedness or dizziness. No syncopal episodes. Abdominal: Reports abdominal pain. No nausea, vomiting. No diarrhea. No constipation. No bloody or tarry stools reports loss of appetite. Genitourinary: No dysuria, increased frequency, urgency. No urinary retention. Musculoskeletal: No myalgias. positive for muscle weakness, positive for gait dysfunction, no frequent falls. No back pain. No neck pain. Integumentary: No wounds, no lesions. No rash or pruritus. No unusual bruising. No change in hair or nails. Neurologic: No aphasia. No facial droop. change in mentation. No head injury. No headache. No paralysis. No paresthesia. Psychiatric: positive for depression. No anxiety. No mood swings. Endocrine: abnormal blood sugars. positive for weight change. PHYSICAL EXAMINATION: General: This is an 87-year-old female who appears to be ill pale no acute distress. HEENT: Head is atraumatic, normocephalic, pupils were equal round reactive to light and recommendation, extraocular muscle movement were intact, sclera nonicteric, conjunctivae were pale, mucous membranes of the mouth are somewhat dry. Neck: Supple, no JVP, normal carotid upstroke bilaterally, no lymphadenopathy. Chest: Decreased breath sounds at the bases, few rhonchi, no expiratory wheezes, no chest wall tenderness, no intercostal retractions. Heart: First heart sound is normal, second heart sounds normal there is systolic ejection murmur 2/6 located in the left sternal border. Abdomen: Soft, mild tenderness to the right lower quadrant nondistended, positive bowel sounds. Extremities: There is no edema no calf tenderness DP +2 bilaterally. Neurologic examination: Patient is awake alert and oriented x1 cranial nerves II-12 appear grossly intact, muscle power were 3 out of 5 in upper extremities and 3 out of 5 in bilateral lower extremities, deep tendon reflexes normal bilaterally. ASSESSMENT AND PLAN: 1. Acute on chronic diastolic heart failure. Continue patient on Lasix 40 mg in the morning and 20 mg in the afternoon, spironolactone 12.5 mg once every day, Farxiga 5 mg once every day, metoprolol 50 mg orally twice every day, lisinopril 40 mg orally twice every day, monitor the patient input and output and daily weight. 2. Pancytopenia. Likely due to combination of vitamin B12 deficiency as well as the state of inflammatory reaction and due to chronic heart failure monitor the the patient very closely hide patient has been getting vitamin B12 1000 mcg IM once every day will be done tomorrow morning. Hematology oncology consultation appreciated. 3. Coronary artery disease status post coronary artery bypass graft. Continue patient on metoprolol 50 mg orally twice every day, continue patient on lisinopril 40 mg mg orally twice every day, aspirin 81 mg once every day, continue rosuvastatin 20 mg orally once every day, continue patient on isosorbide mononitrate 30 mg orally once every day. 4. Hypertension and hypertensive cardiovascular disease. Continue metoprolol 50 mg orally twice every day, lisinopril 40 mg orally twice every day, hydralazine 50 mg orally twice every day. Monitor the patient blood pressure very closely. 5. Mixed hyperlipidemia. Continue patient on rosuvastatin 20 mg once every day. Monitor lipid panel, keep LDL 55-70. 6. Diabetes mellitus type 2. Continue Lantus 21 units at bedtime along with Humalog 5 units before each meal along with a sliding scale insulin, continue Farxiga 5 mg orally once every day. Check blood glucose level before each meal and at bedtime 7. GERD. Continue patient on pantoprazole 40 mg orally once every day. 8. Osteoarthritis. Continue current pain management with hydrocodone as needed. 9. Diabetic polyneuropathy. Continue gabapentin 100 mg orally twice every day. 10. DVT prophylaxis. Bilateral knee-high MARISELA hose to hold off Lovenox due to the patient pancytopenia. 11. GI prophylaxis continue patient on Protonix 40 mg orally once every day. 12. Medical debility. Physical therapy evaluation 13. Vascular dementia without behavioral disturbances. Monitor the patient very closely. 14. Subacute rehabilitation likely [facility]. 15. No CODE STATUS per Objective - Vital Signs Vital signs: Vital Signs Temp 98.6 F 08/21/23 13:24 Pulse 63 08/21/23 13:24 Resp 17 08/21/23 13:24 BP 121/44 08/21/23 13:24 Pulse Ox 100 08/21/23 13:24 FiO2 Intake & Output 08/20/23 08/21/23 08/21/23 18:59 06:59 18:59 Output Total 321 226 102 Balance -321 -226 -102 Weight 30 kg 51.7 kg Output: Urine 320 225 100 Stool 1 1 2 Other: Voiding Method Indwelling Catheter Indwelling Catheter Indwelling Catheter # Bowel Movements 2 - Labs CBC & Chem 7: 08/20/23 06:57 08/20/23 06:57 Labs: Abnormal Lab Results - Last 24 Hours (Table) 04/09/24 04/09/24 Range/Units 17:22 20:07 POC Glucose (mg/dL) 112 H 154 H (70-110) mg/dL
[2023-08-21 17:27] LABS: Glucose,Whole Blood 235 mg/dL (70-110)
[2023-08-22 23:19] LABS: Albumin 3.69 g/dL (3.80-4.90); Gamma Globulin 1.61 g/dL (0.70-1.50)
== END 2023-08-21 18:32 | DRG 808 ==
LOC: EC 10:52 → 5NMEDONC 15:19
PROVIDERS: ADMIT Internal Medicine; ATTEND Internal Medicine
DX: D61.818 Other pancytopenia (principal); E43 Unspecified severe protein-calorie malnutrition; I50.33 Acute on chronic diastolic (congestive) heart failure; C7A.8 Other malignant neuroendocrine tumors; I11.0 Hypertensive heart disease with heart failure; F01.50 Vascular dementia, unspecified severity, without behavioral disturbance, psychotic disturbance, mood disturbance, and anxiety; E11.42 Type 2 diabetes mellitus with diabetic polyneuropathy; Z79.4 Long term (current) use of insulin; Z66 Do not resuscitate; R62.7 Adult failure to thrive; Z95.1 Presence of aortocoronary bypass graft; I25.10 Atherosclerotic heart disease of native coronary artery without angina pectoris; E78.2 Mixed hyperlipidemia; K21.9 Gastro-esophageal reflux disease without esophagitis; M19.90 Unspecified osteoarthritis, unspecified site; R53.81 Other malaise; R29.6 Repeated falls; E53.8 Deficiency of other specified B group vitamins; T38.3X6A Underdosing of insulin and oral hypoglycemic [antidiabetic] drugs, initial encounter; G89.29 Other chronic pain; M54.9 Dorsalgia, unspecified; Z96.652 Presence of left artificial knee joint; Z91.138 Patient's unintentional underdosing of medication regimen for other reason; Z87.891 Personal history of nicotine dependence; Z79.899 Other long term (current) drug therapy; Z79.84 Long term (current) use of oral hypoglycemic drugs; Z85.89 Personal history of malignant neoplasm of other organs and systems; Z90.49 Acquired absence of other specified parts of digestive tract; I25.2 Old myocardial infarction; Z79.82 Long term (current) use of aspirin; Z88.8 Allergy status to other drugs, medicaments and biological substances; Z68.20 Body mass index [BMI] 20.0-20.9, adult; Z79.891 Long term (current) use of opiate analgesic; Z91.81 History of falling
CPT/HCPCS: 36415; 51702; 71046; 71260; 74177; 80053; 81001; 82272; 82525; 82550; 82607; 82728; 82746; 82784; 82785; 83010; 83540; 83550; 83605; 83615; 83735; 83880; 83883; 84165; 84443; 85025; 85045; 85384; 85610; 85730; 86334; 86335; 86850; 86870; 86880; 86900; 86901; 86902; 86920; 87636; 93005; 93306; 93970; 94760; 96374; 99285